=== PATIENT | female | born 1950 | race Caucasian/White ===

== ENCOUNTER 2016-10-24 00:58 | Inpatient (IN) | payer MEDICARE, BC ==
--- NOTE | 2016-10-24 01:51 | XR ---
EXAM: XR Chest, 1 View CLINICAL HISTORY: Reason: Pain TECHNIQUE: Frontal view of the chest. COMPARISON: No relevant prior studies available. FINDINGS: Lungs: Suspect mild subsegmental atelectasis in the right midlung. No consolidation. Pleural space: Unremarkable. No pneumothorax. Heart: Borderline cardiomegaly. Bones/joints: Bilateral shoulder degeneration. IMPRESSION: No clear evidence of acute pulmonary disease
--- NOTE | 2016-10-24 02:12 | XR ---
EXAM: XR Pelvis, 1 or 2 Views CLINICAL HISTORY: Reason: Pain TECHNIQUE: Frontal view of the pelvis. COMPARISON: No relevant prior studies available. FINDINGS: Bones/joints: There is a subtrochanteric/intertrochanteric fracture of the right femur. Femoral shaft is laterally displaced by approximately 1. 5 cm and overriding by approximately 4 cm. Minimal varus angulation. Soft tissues: Unremarkable. IMPRESSION: Subtrochanteric/intertrochanteric right femur fracture
--- NOTE | 2016-10-24 02:21 | XR ---
EXAM: XR Right Femur, 2 Views CLINICAL HISTORY: Reason: Pain TECHNIQUE: Frontal and lateral views of the right femur. COMPARISON: No relevant prior studies available. FINDINGS: There is a subtrochanteric/intertrochanteric fracture of the right femur. Femoral shaft is laterally displaced by approximately 1.5 cm and overriding by approximately 4 cm. Minimal varus angulation. Marked degeneration of the right knee, most pronounced to the medial compartment. Osteopenia. IMPRESSION: Subtrochanteric/intertrochanteric right femur fracture
[2016-10-24] MEDS ORDERED: ADENOSINE 3 MG/ML 2 ML VIAL IVP STA (02:24)
[2016-10-24] MEDS ORDERED: SODIUM CHLORIDE 0.9% 1,000 ML IV STA (02:28)
[2016-10-24] MEDS ORDERED: HYDROmorphone 1 MG/ML 1 ML SYRINGE IM STA (02:37)
--- NOTE | 2016-10-24 02:43 | XR ---
EXAM: XR Right Hand Complete, 3 or More Views CLINICAL HISTORY: Reason: pain, fall TECHNIQUE: Frontal, lateral and oblique views of the right hand. COMPARISON: No relevant prior studies available. FINDINGS: Bones/joints: No fracture. No dislocation. Degenerative changes of the triscaphe and first carpometacarpal joints. Distal interphalangeal osteoarthrosis, most pronounced to the index finger. Soft tissues: Dorsal soft tissue swelling. No radiopaque foreign body. IMPRESSION: No fracture or dislocation.
[2016-10-24] MEDS ORDERED: PROPRANOLOL 1 MG/ML 1 ML VIAL IV STA (02:46)
--- NOTE | 2016-10-24 02:55 | ED ---
Fall HPI - General Chief Complaint: Fall Stated Complaint: Fall, Leg injury Time Seen by Provider: 10/24/16 01:00 Source: patient, EMS, RN notes reviewed Mode of arrival: EMS - History of Present Illness Initial Comments: This is a 66-year-old female who slipped and fell 1 hour prior to calling EMS. She was able scooter so forth were performed. She complains some pain to her rate hip area no head neck pain she does complain some mid back pain but not from a fall just lying on the floor. She denies any other extremity injuries. Complains right dorsal hand pain. No fevers chills sweats no other symptoms no loss of consciousness. She was brought in by paramedics. Reportedly she was medially rotated and shortened with her right lower extremity. MD Complaint: fall - Related Data Home Medications Medication Instructions Recorded Confirmed Lisinopril 5 mg PO DAILY 02/27/15 03/20/16 Aspirin 325 mg PO DAILY 02/23/16 03/20/16 Fluticasone Nasal [place] [Flonase 1 spray EA NOSTRIL BID PRN 02/23/16 03/20/16 Nasal [place]] Furosemide [Lasix] 20 mg PO DAILY 03/20/16 03/20/16 Previous Rx's Medication Instructions Recorded Nitroglycerin Sl Tabs [Nitrostat] 0.4 mg SUBLINGUAL Q5M PRN #0 tab 01/04/16 Potassium Chloride ER [K-Dur 20] 20 meq PO DAILY #60 tab 03/20/16 Potassium Chloride Oral Liquid 20 meq PO DAILY 30 Days 03/20/16 Allergies Allergy/AdvReac Type Severity Reaction Status Date / Time No Known Allergies Allergy Verified 03/20/16 20:06 Review of Systems ROS Statement: Those systems with pertinent positive or pertinent negative responses have been documented in the HPI. ROS Other: All systems not noted in ROS Statement are negative. Past Medical History Past Medical History: GERD/Reflux, Hyperlipidemia, Hypertension, Osteoarthritis (OA) History of Any Multi-Drug Resistant Organisms: None Reported Past Surgical History: Adenoidectomy, Joint Replacement, Tonsillectomy Additional Past Surgical History / Comment(s): LT TKA. COLONOSCOPY Past Anesthesia/Blood Transfusion Reactions: Motion Sickness Past Psychological History: No Psychological Hx Reported Smoking Status: Current every day smoker Past Alcohol Use History: None Reported Past Drug Use History: None Reported - Past Family History Father Family Medical History: Myocardial Infarction ([place]) (Father at the age of 66 from [place].) Brother(s) Family Medical History: No Reported History (patient has one brother no major medical problems.) Mother Family Medical History: Coronary Artery Disease (CAD) (Mother at the age of 83 from CAD.) General Exam - General Exam Comments Initial Comments: This is a well-developed well-nourished awake alert oriented 3 female she does demonstrate a [place] Coma Scale of 15 Limitations: no limitations General appearance: alert, anxious Head exam: Present: atraumatic, normocephalic, normal inspection Eye exam: Present: normal appearance, PERRL, EOMI. Absent: scleral icterus, conjunctival injection, periorbital swelling ENT exam: Present: normal exam, mucous membranes moist Neck exam: Present: normal inspection. Absent: tenderness, meningismus, lymphadenopathy Respiratory exam: Present: normal lung sounds bilaterally. Absent: respiratory distress, wheezes, rales, rhonchi, stridor Cardiovascular Exam: Present: normal rhythm, tachycardia, normal heart sounds. Absent: systolic murmur, diastolic murmur, rubs, gallop, clicks GI/Abdominal exam: Present: soft, normal bowel sounds. Absent: distended, tenderness, guarding, rebound, rigid Extremities exam: Present: tenderness, normal capillary refill, other ( Shortening and medial rotation of her lower extremity with tenderness palpation of the region of the greater trochanter. No pain to palpation distal to this area. Additionally there is some edema over the right dorsal hand. Or crepitation ). Absent: normal inspection, full ROM, pedal edema, joint swelling, calf tenderness Back exam: Present: normal inspection, tenderness (Mild tenderness to the paraspinous muscles of the lower thoracic spine). Absent: CVA tenderness (R), CVA tenderness (L), vertebral tenderness Neurological exam: Present: alert, oriented X3, CN II-XII intact Psychiatric exam: Present: normal affect, normal mood Skin exam: Present: warm, dry, intact, normal color. Absent: rash Course Vital Signs 10/24/16 10/24/16 10/24/16 01:06 02:07 02:26 Temperature 98.3 F Pulse Rate 111 H 158 H 102 H Respiratory 20 18 Rate Blood Pressure 174/74 131/61 O2 Sat by Pulse 96 95 Oximetry 10/24/16 03:20 Temperature Pulse Rate 92 Respiratory 16 Rate Blood Pressure 111/62 O2 Sat by Pulse 98 Oximetry - Reevaluation(s) Reevaluation #1: 10/24/16 02:56 The patient was noted to be an SVT heart rate was 153 EKG showed a QRS of 84 daily since QTC of 320/510 nonspecific inferior changes artifact was present. Patient to response to 6 mg with occurred. Reevaluation #2: 10/24/16 03:03 Patient's R-rated go back up to the 150s due to her suspected thyroid disease propanolol will be given an additional fluid challenge. Reevaluation #3: 10/24/16 03:39 The patient did convert to a normal sinus rhythm after 1 mg of her propranolol Medical Decision Making - Medical Decision Making I did discuss case with Dr. Juárez was senior quality control inspector for orthopedic surgery facial be admitted nothing by mouth he will consult medical clearance - Lab Data Result diagrams: 10/24/16 02:57 Lab Results 10/24/16 10/24/16 10/24/16 Range/Units 02:57 02:57 03:00 PT 11.6 (9.0-12.0) sec INR 1.2 (<1.1) APTT 25.4 (22.0-30.0) sec Sodium 141 (137-145) mmol/L Potassium 3.9 (3.5-5.1) mmol/L Chloride 110 H (98-107) mmol/L Carbon Dioxide 24 (22-30) mmol/L Anion Gap 7 mmol/L BUN 13 (7-17) mg/dL Creatinine 0.50 L (0.52-1.04) mg/dL Est GFR (MDRD) Af Amer >60 (>60 ml/min/1.73 sqM) Est GFR (MDRD) Non-Af >60 (>60 ml/min/1.73 sqM) Glucose 100 H (74-99) mg/dL Calcium 9.1 (8.4-10.2) mg/dL Magnesium 1.6 (1.6-2.3) mg/dL Total Bilirubin 0.4 (0.2-1.3) mg/dL AST 25 (14-36) U/L ALT 33 (9-52) U/L Alkaline Phosphatase 109 (38-126) U/L Total Protein 5.6 L (6.3-8.2) g/dL Albumin 2.9 L (3.5-5.0) g/dL Urine Color Light Yellow Urine Appearance Clear (Clear) Urine pH 5.0 (5.0-8.0) Ur Specific [place] 1.004 (1.001-1.035) Urine Protein Negative (Negative) Urine Glucose (UA) Negative (Negative) Urine Ketones Negative (Negative) Urine Blood Moderate H (Negative) Urine Nitrite Negative (Negative) Urine Bilirubin Negative (Negative) Urine Urobilinogen <2.0 (<2.0) mg/dL Ur Leukocyte Esterase Negative (Negative) Urine RBC 3 (0-5) /hpf - EKG Data -: EKG Interpreted by Me EKG shows normal: sinus rhythm Rate: tachycardia (Tachycardia of 106 FL interval 1:30 QRS 88 QT since QTC some PACs are noted.) - Radiology Data Radiology results: report reviewed (I did review all the imaging and reports are is a some anterior and intertrochanteric fracture of the right femur.), image reviewed Critical Care Time Critical Care Time: Yes Critical Care Time: 33 minutes of critical care time which includes initial monitoring of the EMS run and discussed with paramedics history physical labs x-rays of the patient reevaluation the patient's response to therapy and several occasions discussion with the family and patient status with physician and admission orders documentation of the above Disposition Clinical Impression: Fall, Closed intertrochanteric fracture of right hip, SVT (supraventricular tachycardia) Disposition: ADMITTED IP TO THIS [facility] Condition: Stable Referrals: None,Stated [Primary Care Provider] - 1-2 days Decision Time: 02:00
[2016-10-24 03:14] LABS: ALT 33 U/L (9-52); AST 25 U/L (14-36); Alkaline Phosphatase 109 U/L (38-126); Anion Gap 7 mmol/L; Blood Urea Nitrogen 13 mg/dL (7-17); Calcium 9.1 mg/dL (8.4-10.2); Carbon Dioxide 24 mmol/L (22-30); Chloride 110 mmol/L (98-107); Glucose 100 mg/dL (74-99); Magnesium 1.6 mg/dL (1.6-2.3); Non-African American GFR(MDRD) >60 (>60 ml/min/1.73 sqM); Potassium 3.9 mmol/L (3.5-5.1); Sodium 141 mmol/L (137-145); Total Bilirubin 0.4 mg/dL (0.2-1.3); Total Protein 5.6 g/dL (6.3-8.2)
[2016-10-24 03:15] LABS: Appearance,Urine Clear (Clear); Bilirubin,Urine Negative (Negative); Glucose,Urine (UA) Negative (Negative); Ketones,Urine Negative (Negative); Leukocyte Esterase,Urine Negative (Negative); Nitrite,Urine Negative (Negative); Particle Count 4349; Protein,Urine Negative (Negative); RBC,Urine 3 /hpf (0-5); Specific Gravity,Urine 1.004 (1.001-1.035); UA Billing (MACRO vs. MICRO) MICRO; Urobilinogen,Urine <2.0 mg/dL (<2.0)
[2016-10-24 03:19] LABS: INR 1.2 (<1.1); Partial Thromboplastin Time 25.4 sec (22.0-30.0); Prothrombin Time 11.6 sec (9.0-12.0)
[2016-10-24 03:22] LABS: Basophils % (A) 0 %; CH 30.4; CHCM 32.5; Eosinophils % (A) 0 %; HCT 34.4 % (34.0-46.0); HDW 2.19; HGB 11.1 gm/dL (11.4-16.0); Luc # (Auto) 0.11; Luc % (Auto) 1; Lymphocytes % (A) 7 %; MCH 30.4 pg (25.0-35.0); MCHC 32.4 g/dL (31.0-37.0); MCV 93.7 fL (80.0-100.0); Monocytes # (A) 0.8 k/uL (0-1.0); Monocytes % (A) 5 %; Neutrophils # (A) 14.1 k/uL (1.3-7.7); Neutrophils % (A) 88 %; RBC 3.67 m/uL (3.80-5.40); RDW 12.5 % (11.5-15.5); WBC (Perox) 17.58
[2016-10-24 03:31] LABS: Creatine Kinase MB 1.8 ng/mL (0.0-2.4)
[2016-10-24] MEDS ORDERED: ONDANSETRON 4 MG/2 ML VIAL IVP PRN (03:42)
[2016-10-24] MEDS ORDERED: NALOXONE 0.4 MG/ML 1 ML VIAL IV PRN (03:42)
[2016-10-24] MEDS: HYDROmorphone 1 MG/ML 1 ML SYRINGE IV PRN ×7 (05:18→22:14)
[2016-10-24 06:01] VITALS: BMI 31.9
[2016-10-24] MEDS: SODIUM CHLORIDE 0.9% 1,000 ML IV SCH ×3 (06:19→20:11)
[2016-10-24] MEDS: HEPARIN SODIUM,PORCINE 5,000 UNIT/ML 1 ML VIAL SQ SCH ×2 (08:11→17:10)
--- NOTE | 2016-10-24 10:14 | P.HPOR ---
History of Present Illness H&P Date: 10/24/16 Chief Complaint: Right hip fracture This is a 66-year-old female who is admitted to orthopedics for management of right hip fracture. Patient states she was walking to the bathroom last night and reached to grab something off the floor when she fell. Patient states after she fell she was unable to get up off of the floor. Patient has not been able to bear weight to the right lower extremity. Patient states that she was able to scoot across the floor to get her phone and call for help. Patient was evaluated in the EC and determined to have a fracture of the right hip. Patient also complains of some right hand pain. Patient states the hand pain is made worse when picking up objects. Patient states she noticed some swelling in the right hand yesterday but this has improved. Patient also complains of lower back pain that is worse with movement and better with rest. Patient denies any loss of sensation to the saddle area or any change in bowel or bladder function. Patient denies any loss of consciousness, head injury, neck pain or any numbness/weakness/tingling to the bilateral upper or lower extremities. Review of Systems See HPI. Past Medical History Past Medical History: Atrial Fibrillation, GERD/Reflux, Hyperlipidemia, Hypertension, Osteoarthritis (OA), Thyroid Disorder Additional Past Medical History / Comment(s): Radiation for thyroid History of Any Multi-Drug Resistant Organisms: None Reported Past Surgical History: Adenoidectomy, Joint Replacement, Tonsillectomy Additional Past Surgical History / Comment(s): LT TKA. COLONOSCOPY Past Anesthesia/Blood Transfusion Reactions: No Reported Reaction Past Psychological History: No Psychological Hx Reported Smoking Status: Current every day smoker Past Alcohol Use History: None Reported Past Drug Use History: None Reported - Past Family History Father Family Medical History: Myocardial Infarction ([place]) Brother(s) Family Medical History: No Reported History Mother Family Medical History: Coronary Artery Disease (CAD) Medications and Allergies Home Medications Medication Instructions Recorded Confirmed Type Apixaban [Eliquis] 5 mg PO BID 10/24/16 10/24/16 History Flecainide Acetate [Flecainide 50 mg PO BID 10/24/16 10/24/16 History Acetate] Methimazole [Tapazole] 5 mg PO DAILY 10/24/16 10/24/16 History Metoprolol Tartrate [Metoprolol 25 mg PO BID 10/24/16 10/24/16 History Tartrate] Omeprazole [Omeprazole] 20 mg PO DAILY 10/24/16 10/24/16 History Allergies Allergy/AdvReac Type Severity Reaction Status Date / Time No Known Allergies Allergy Verified 10/24/16 07:50 Physical Examination Patient is in no acute distress and is alert and oriented 3. On exam of the right lower extremity there is shortening and external rotation. There is tenderness over the proximal femur. Patient has full foot and ankle motion of the right lower extremity with sensation intact. Dorsalis pedis pulses are 2+ bilaterally. No tenderness of the left lower extremity and patient has full range of motion, strength and sensation of the left lower extremity. Calf soft and nontender bilaterally. Examination of the right hand reveals tenderness to the dorsal medial aspect of the right hand. No tenderness to palpation of the anatomical snuffbox. Patient has full range of motion of the right hand and wrist. Sensation and strength are intact. Radial pulses are 2+ bilaterally. There is no swelling, ecchymosis or erythema on examination of the right hand. There is no tenderness to palpation of the cervical midline, bilateral shoulders , upper arms, elbows or wrists. Patient has tenderness to palpation over the lumbar spine and lumbar paraspinal muscles. Results X-rays of the right hip and pelvis were reviewed showing displaced commintued subtrochanteric fracture. X-rays of the right hand were reviewed showing evidence for chronic arthritic changes, no definite acute fracture or dislocation. X-rays of the lumbar spine are pending. - Labs Labs: Abnormal Lab Results - Last 24 Hours (Table) 10/24/16 10/24/16 10/24/16 Range/Units 02:57 02:57 02:57 WBC 16.0 H (3.8-10.6) k/uL RBC 3.67 L (3.80-5.40) m/uL Hgb 11.1 L (11.4-16.0) gm/dL Neutrophils # 14.1 H (1.3-7.7) k/uL Chloride 110 H (98-107) mmol/L Creatinine 0.50 L (0.52-1.04) mg/dL Glucose 100 H (74-99) mg/dL Total Creatine Kinase 176 H (30-135) U/L Total Protein 5.6 L (6.3-8.2) g/dL Albumin 2.9 L (3.5-5.0) g/dL TSH (0.465-4.680) mIU/L Free T4 (0.78-2.19) ng/dL Urine Blood (Negative) 10/24/16 10/24/16 Range/Units 02:57 03:00 WBC (3.8-10.6) k/uL RBC (3.80-5.40) m/uL Hgb (11.4-16.0) gm/dL Neutrophils # (1.3-7.7) k/uL Chloride (98-107) mmol/L Creatinine (0.52-1.04) mg/dL Glucose (74-99) mg/dL Total Creatine Kinase (30-135) U/L Total Protein (6.3-8.2) g/dL Albumin (3.5-5.0) g/dL TSH <0.015 L (0.465-4.680) mIU/L Free T4 4.35 H (0.78-2.19) ng/dL Urine Blood Moderate H (Negative) H & H 10/24/16 Range/Units 02:57 Hgb 11.1 L (11.4-16.0) gm/dL Hct 34.4 (34.0-46.0) % Coagulation 10/24/16 Range/Units 02:57 INR 1.2 (<1.1) Result Diagrams: 10/24/16 02:57 10/24/16 02:57 Assessment and Plan (1) Closed fracture of right hip Status: Acute Plan: #1. Cotaes's traction ordered. #2. Xrays of lumbar spine pending #3. Continue pain control #4. Patient is to be nothing by mouth after midnight. #5. Appreciate input from medicine #6. Anticipate ORIF of right hip tomorrow.
--- NOTE | 2016-10-24 10:45 | XR ---
EXAM TYPE: LUMBAR SPINE X RAY SERIES COMPARISON: NONE HISTORY: Low back pain TECHNIQUE: 4 views are submitted. FINDINGS: Alignment is anatomic. The pedicles are intact. The transverse processes are intact. There is diff use osteopenia with hypertrophic and degenerative change at all levels. Endplate compression deformit ies of L4 and L3 are noted. Deformity of L3 appears new from a CT scan of 01/02/2016. IMPRESSION: 1. Multilevel moderate to severe degenerative disc disease with hypertrophic changes. 2. There are compression deformities of the superior endplate of L3 and L4. Deformity of L3 appears n ew from a previous CT scan of 01/02/2016. Correlate clinically.
[2016-10-24] MEDS ORDERED: POLYETHYLENE GLYCOL 3350 17 GM POWD.PACK PO PRN (12:49)
[2016-10-24] MEDS: MAGNESIUM SULFATE-D5W PMX 1 GM in DEXTROSE/WATER 1 100ML.BAG IVPB SCH ×2 (13:36→14:47)
--- NOTE | 2016-10-24 16:04 | P.PN ---
Progress Note - Text X-rays of the lumbar spine were done and reviewed showing: #1. Severe degenerative disc disease and hypertrophic changes. #2 There are compression deformities of the superior endplate of L3 and L4. Deformity of L3 appears new from a previous CT scan of 01/02/2016. Correlate clinically. Report by Dr. hC. Due to evidence for new L3 compression fracture a DESIR 2 brace is ordered for patient to be worn at all times unless patient is in bed with head of bed at less than 45.
--- NOTE | 2016-10-24 16:34 | CONS ---
DATE OF CONSULTATION: 10/24/2016 This patient is a 66-year-old female who presented to the emergency room at [facility] in regards to an injury to her right hip. She tripped, falling on the hip, sustaining a displaced intertrochanteric/subtrochanteric fracture, right hip. She is admitted, stabilized. She had cardiac ( ) at the time of admission which was stabilized. She was placed on ( ). I ( ) fracture and scheduled for fixation. ( ) Department of Medicine with Department of Radiology in regards to her care and will schedule her tentatively for tomorrow on 10/25/2016 for open reduction internal fixation. I discussed the procedure with her, including complications ( ) and will proceed ( ).
[2016-10-24] MEDS ORDERED: LIDOCAINE 1% 20 ML VIAL (10MG/ML) FOR IV START INTRADERMA PRN (19:52)
[2016-10-24] MEDS ORDERED: ONDANSETRON 4 MG/2 ML VIAL IVP ONE (19:52)
[2016-10-24] MEDS ORDERED: SCOPOLAMINE 1.5MG/72HR PATCH TRANSDERM ONE (19:52)
[2016-10-24] MEDS ORDERED: DEXAMETHASONE SOD PHOSPHATE 10 MG/ML 1 ML VIAL IV ONE (19:52)
[2016-10-24] MEDS: METHIMAZOLE 5 MG TAB PO SCH (20:12)
[2016-10-24] MEDS: METOPROLOL TARTRATE 25 MG TAB PO SCH (20:12)
[2016-10-24] MEDS: FLECAINIDE 50 MG TAB PO SCH (20:12)
--- NOTE | 2016-10-24 20:31 | CONS ---
DATE OF CONSULTATION: 10/24/2016 REASON FOR CONSULTATION: SVT and ( ) clearance. Patient is a 66-year-old female who came in after a mechanical fall. Patient denied any palpitations or chest pain at that time. Patient does have a history of atrial fibrillation. Patient was found to have sinus tachycardia followed by SVT, which has completely resolved at this point in time. Patient is on beta frances ( ) which is being resumed. Patient is on Eliquis as an anticoagulation ( ) atrial fibrillation. Patient's functional status is greater than 4 METS. Denied any coronary artery disease. EKG showed sinus tachycardia without any acute ST-T wave changes. Patient denied any history of congestive heart failure. Patient's Eliquis is being held for surgery. I do not believe patient ( ) at this point of time and patient will be resumed on her beta frances and also flecainide. Patient is definitely high risk for episodes of atrial fibrillation post surgery, which needs to be more closely monitored. Otherwise, patient is low to intermediate risk for surgery. Patient had a right hip intertrochanteric fracture. Patient is scheduled for surgery tomorrow. Patient denied any fever or chills. Patient denied any dysuria, nausea, vomiting. REVIEW OF SYSTEMS: CONSTITUTIONAL: No fever, no malaise, no fatigue. HEENT: No recent visual problems or hearing problems. Denied any sore throat. CARDIOVASCULAR: No chest pain, orthopnea, PND, no palpitations, no syncope. PULMONARY: No shortness of breath, no cough, no hemoptysis. GASTROINTESTINAL: No diarrhea, no nausea, no vomiting, no abdominal pain. Normoactive bowel sounds. NEUROLOGICAL: No headaches, no weakness, no numbness. HEMATOLOGICAL: Denies any bleeding or petechiae. GENITOURINARY: Denies any burning micturition, frequency, or urgency. MUSCULOSKELETAL/RHEUMATOLOGICAL: Pain in the right hip area secondary to fracture. ENDOCRINE: Denies any polyuria or polydipsia. The rest of the 14 point review of systems is negative. PAST MEDICAL HISTORY: 1. Atrial fibrillation. 2. Gastroesophageal reflux disease. 3. Hyperlipidemia. 4. Hypertension. 5. Osteoarthritis. 6. Hyperthyroidism. 7. Chronic low back pain. 8. Chronic lumbar degenerative disc disease. 9. Patient had radiation of thyroid in the past. 10. Adenoidectomy. 11. Joint replacement surgery. 12. Tonsillectomy. Patient does smoke. Denied any alcohol abuse or any drug abuse. FAMILY HISTORY: Father had myocardial infarction. Mother had coronary artery disease. HOME MEDICATIONS: 1. ( ) 2. Flecainide. 3. Methimazole. I am obtaining TSH as well. 4. Metoprolol. 5. Omeprazole. 6. Eliquis. ( ) PHYSICAL EXAMINATION: VITAL SIGNS: Temperature 97.5, pulse of 85, respiratory rate of 18. Blood pressure is 122/57. Saturating at 96% on room air. GENERAL: The patient is alert and oriented x3, not in any acute distress. Well developed, well nourished. HEENT: Pupils are round and equally reacting to light. EOMI. No scleral icterus. No conjunctival pallor. Normocephalic, atraumatic. No pharyngeal erythema. No thyromegaly. CARDIOVASCULAR: S1 and S2 present. No murmurs, rubs, or gallops. PULMONARY: Chest is clear to auscultation, no wheezing or crackles. ABDOMEN: Soft, nontender, nondistended, normoactive bowel sounds. No palpable organomegaly. MUSCULOSKELETAL: Defer to Orthopedic Surgery. EXTREMITIES: No cyanosis, clubbing, or pedal edema. NEUROLOGICAL: Gross neurological examination did not reveal any focal deficits. SKIN: No rashes. LABORATORY DATA: CBC and CMP are abnormal for increased WBC count of 16,000. Patient's free T4 is 4.35. TSH is extremely low secondary to hyperthyroidism. Methimazole dose may need to be increased. ASSESSMENT AND PLAN: 1. Preoperative clearance as mentioned above. Patient is low to intermediate risk for surgery. 2. Atrial fibrillation with episodes of supraventricular tachycardia during this hospitalization. Patient in sinus rhythm at this point of time. Continue with beta frances and also flecainide. 3. Right hip fracture. Further management as per primary service. Pain management as per primary service. Patient will need to be resumed on 5 mg twice a day of Eliquis once she is done with the surgery. 4. Hyperthyroidism. Patient's T4 is elevated. TSH is low. I will show an increase the dose of methimazole to 5 mg p.o. b.i.d. 5. Leukocytosis without any signs or symptoms of infection; reactive in nature, secondary to fracture. 6. Gastroesophageal reflux disease. Continue with Prilosec. Will continue to follow the patient. 7. Patient has lumbar degenerative disc disease.
[2016-10-25] MEDS: HEPARIN SODIUM,PORCINE 5,000 UNIT/ML 1 ML VIAL SQ SCH ×3 (00:27→17:38)
[2016-10-25] MEDS: HYDROmorphone 1 MG/ML 1 ML SYRINGE IV PRN ×3 (01:30→07:40)
[2016-10-25] MEDS: SODIUM CHLORIDE 0.9% 1,000 ML IV SCH ×2 (06:45→21:10)
[2016-10-25] MEDS: PANTOPRAZOLE 40 MG TABLET PO SCH (06:45)
[2016-10-25 07:06] LABS: Anion Gap 8 mmol/L; Blood Urea Nitrogen 13 mg/dL (7-17); Calcium 8.9 mg/dL (8.4-10.2); Carbon Dioxide 22 mmol/L (22-30); Chloride 109 mmol/L (98-107); Glucose 89 mg/dL (74-99); Non-African American GFR(MDRD) >60 (>60 ml/min/1.73 sqM); Potassium 3.8 mmol/L (3.5-5.1); Sodium 139 mmol/L (137-145)
[2016-10-25] MEDS: METHIMAZOLE 5 MG TAB PO SCH ×2 (08:13→21:14)
[2016-10-25] MEDS: METOPROLOL TARTRATE 25 MG TAB PO SCH ×2 (08:13→21:16)
[2016-10-25] MEDS: FLECAINIDE 50 MG TAB PO SCH ×2 (08:13→21:16)
[2016-10-25] MEDS ORDERED: METHIMAZOLE 5 MG TAB PO SCH (09:00)
--- NOTE | 2016-10-25 09:01 | P.CRDCN ---
History of Present Illness Consult date: 10/25/16 Requesting physician: Seth Wilkins Consult reason: atrial flutter Chief complaint: Fall History of present illness: This is a pleasant 66-year-old female with history of hypertension, hyperlipidemia, hyperthyroidism currently receiving radioactive iodine, typical atrial flutter, she sees Dr. Rowan in the office. Patient has been on second night 50 mg twice a day along with metoprolol tartrate 25 mg twice a day and Eliquis for anticoagulation. She presented to the hospital after experiencing a fall at home. She denies any syncope. She states that she was reaching down to pick something up and became unsteady and fell. Patient did sustain a displaced intertrochanteric/supple trochanteric fracture to the right hip. She was seen by orthopedics and is scheduled to undergo surgery today. It was on the fifth floor, went into a rapid rhythm which appears to be a supraventricular tachycardia however could be her typical atrial flutter with rapid ventricular response, she subsequently converted to normal sinus rhythm and remains in normal sinus rhythm this morning. Her Eliquis has been placed on hold she is currently on subcu heparin. Blood pressure 108/60 with a heart rate in the 90s. Temperature 99.1. White blood cell count 16, hemoglobin 11.1 , potassium 3.8, creatinine 0.4, BUN 13, TSH 0.015, free T4 4.3. Chest x-ray did not reveal any evidence of acute pulmonary disease. At the time of my examination this morning, patient denies any chest pain at present or any recent chest pain, breathing has been overall stable. She states she did feel some rapid heartbeat briefly yesterday. Overall her main complaint is discomfort in the right hip area this morning. Past Medical History Past Medical History: Atrial Fibrillation, GERD/Reflux, Hyperlipidemia, Hypertension, Osteoarthritis (OA), Thyroid Disorder Additional Past Medical History / Comment(s): Radiation for thyroid History of Any Multi-Drug Resistant Organisms: None Reported Past Surgical History: Adenoidectomy, Joint Replacement, Tonsillectomy Additional Past Surgical History / Comment(s): LT TKA. COLONOSCOPY Past Anesthesia/Blood Transfusion Reactions: No Reported Reaction Past Psychological History: No Psychological Hx Reported Smoking Status: Current every day smoker Past Alcohol Use History: None Reported Past Drug Use History: None Reported - Past Family History Father Family Medical History: Myocardial Infarction (MT) Brother(s) Family Medical History: No Reported History Mother Family Medical History: Coronary Artery Disease (CAD) Medications and Allergies Home Medications Medication Instructions Recorded Confirmed Type Apixaban [Eliquis] 5 mg PO BID 10/24/16 10/24/16 History Flecainide Acetate [Flecainide 50 mg PO BID 10/24/16 10/24/16 History Acetate] Methimazole [Tapazole] 5 mg PO DAILY 10/24/16 10/24/16 History Metoprolol Tartrate [Metoprolol 25 mg PO BID 10/24/16 10/24/16 History Tartrate] Omeprazole [Omeprazole] 20 mg PO DAILY 10/24/16 10/24/16 History Allergies Allergy/AdvReac Type Severity Reaction Status Date / Time No Known Allergies Allergy Verified 10/24/16 07:50 Physical Exam Vitals: Vital Signs Temp Pulse Resp BP BP Pulse Ox 10/25/16 03:50 91 16 10/25/16 03:49 99.1 F 91 16 108/63 91 L 10/25/16 00:00 98 F 97 18 119/56 94 L 10/24/16 20:00 98.9 F 106 H 18 134/66 93 L 10/24/16 14:58 98.3 F 90 18 122/59 96 10/24/16 11:41 96 18 10/24/16 11:40 97.3 F L 85 18 122/57 98 Intake and Output 10/24/16 10/25/16 10/25/16 22:59 06:59 14:59 Intake Total 825 Output Total 620 Balance 205 Intake: IV 825 Sodium Chloride 0.9% 1, 825 000 ml @ 75 mls/hr IV . [id number] [facility] Rx#:[id number] Output: Urine 620 Other: Voiding Method Indwelling Catheter Indwelling Catheter Weight 84.5 kg PHYSICAL EXAMINATION: HEENT: Head is atraumatic, normocephalic. Pupils equal, round. Neck is supple. There is no elevated jugular venous pressure. HEART EXAMINATION: Heart S1, S2 normal. No murmur or gallop heard. CHEST EXAMINATION: Lungs are clear to auscultation and precussion. No chest wall tenderness is noted on palpation or with deep breathing. ABDOMEN: Soft, nontender. Bowel sounds are heard. No organomegaly noted. EXTREMITIES: 2+ peripheral pulses with trace evidence of peripheral edema and no calf tenderness noted. Positive discomfort in the right hip and buttocks area NEUROLOGIC patient is awake, alert and oriented -3. . Results 10/24/16 02:57 10/25/16 06:20 Comprehensive Metabolic Panel 10/25/16 Range/Units 06:20 Sodium 139 (137-145) mmol/L Potassium 3.8 (3.5-5.1) mmol/L Chloride 109 H (98-107) mmol/L Carbon Dioxide 22 (22-30) mmol/L BUN 13 (7-17) mg/dL Creatinine 0.42 L (0.52-1.04) mg/dL Glucose 89 (74-99) mg/dL Calcium 8.9 (8.4-10.2) mg/dL Current Medications Generic Name Dose Route Start Last Admin Trade Name Freq PRN Reason Stop Dose Admin Flecainide Acetate 50 mg 10/24/16 21:00 10/25/16 08:13 Tambocor PO 50 mg BID NIKKI Administration Heparin Sodium (Porcine) 5,000 unit 10/24/16 08:00 10/25/16 08:10 Heparin SQ Not Given Q8HR [facility] Hydromorphone HCl 1 mg 10/24/16 03:42 10/25/16 07:40 Dilaudid IV 1 mg Q3HR PRN Administration Severe Pain Hydromorphone HCl 0.5 mg 10/24/16 19:52 Dilaudid IVP 10/25/16 19:53 Q5M PRN Pain Control Sodium Chloride 1,000 mls @ 75 mls/hr 10/24/16 03:45 10/25/16 06:45 Saline 0.9% IV 75 mls/hr .[id number] NI[facility] Administration Lactated Ringer's 1,000 mls @ 20 mls/hr 10/24/16 19:52 Lactated Ringers IV .Q24H [facility] Lidocaine HCl 0.1 ml 10/24/16 19:52 .Xylocaine 1% Inj (10mg/Ml) For Iv Start INTRADERMA PER PROTOCOL PRN IV Start Methimazole 5 mg 10/24/16 21:00 10/25/16 08:13 Tapazole PO 5 mg BID NIKKI Administration Metoprolol Tartrate 25 mg 10/24/16 21:00 10/25/16 08:13 Lopressor PO 25 mg BID NIKKI Administration Naloxone HCl 0.2 mg 10/24/16 03:42 Narcan IV Q2M PRN Opioid Reversal Ondansetron HCl 4 mg 10/24/16 03:42 10/24/16 11:36 Zofran IVP 4 mg Q8HR PRN Administration Nausea And Vomiting Pantoprazole Sodium 20 mg 10/25/16 07:30 10/25/16 06:45 Protonix PO 20 mg [id number] NIKKI Administration Polyethylene Glycol 17 gm 10/24/16 12:49 Miralax PO DAILY PRN Constipation Intake and Output 10/24/16 10/25/16 10/25/16 22:59 06:59 14:59 Intake Total 825 Output Total 620 Balance 205 Intake: IV 825 Sodium Chloride 0.9% 1, 825 000 ml @ 75 mls/hr IV . [id number] [facility] Rx#:[id number] Output: Urine 620 Other: Voiding Method Indwelling Catheter Indwelling Catheter Weight 84.5 kg 10/24/16 02:57 10/25/16 06:20 EKG Interpretations (text) Initial EKG shows a sinus tachycardia with PACs. Subsequent EKG shows atrial flutter with rapid ventricular response. EKG this morning normal sinus rhythm. Assessment and Plan Plan: Assessment and plan #1 fall, with evidence of a displaced intertrochanteric fracture of the right hip. Patient scheduled for surgery today. #2 hypertension #3 hyperlipidemia #4 atrial flutter with rapid ventricular response, paroxysmal. Currently in normal sinus rhythm #5 history of typical atrial flutter #6 hypothyroidism, currently receiving radioactive iodine treatment Plan We will obtain an echocardiogram with Doppler study. This is currently on hold , patient is on heparin 5000 units subcu every 8 hourly. Continue flecainide and beta frances. Further recommendations to follow. DNP note has been reviewed, I agree with a documented findings and plan of care. Patient was seen and examined.
--- NOTE | 2016-10-25 09:01 | P.PN ---
Subjective Principal diagnosis: Right hip fracture, This is a well-appearing 66-year-old female who was admitted for right hip fracture on 10/24/2016. Patient states the traction has helped somewhat with her pain control but she is still sore with certain movements. Patient states her right wrist is still painful and swollen. Patient states she has tried to keep it elevated. Patient also states her back continues to hurt with certain movements, but if she is laying still it does not hurt. Patient denies any numbness, tingling, weakness, change in bowel or bladder function or loss of sensation to the saddle area. Patient has no new complaints today. Objective - Vital Signs Vital signs: Vital Signs Temp 99.1 F 10/25/16 03:49 Pulse 91 10/25/16 03:50 Resp 16 10/25/16 03:50 BP 108/63 10/25/16 03:49 Pulse Ox 91 L 10/25/16 03:49 Intake & Output 10/24/16 10/25/16 10/25/16 18:59 06:59 18:59 Intake Total 1080 825 Output Total 550 620 Balance 530 205 Weight 84.5 kg Intake: IV 900 825 Sodium Chloride 0.9% 1, 900 825 000 ml @ 75 mls/hr IV . [id number] [facility] Rx#:[id number] Oral 180 Output: Urine 550 620 Uretheral (Beyer) 550 Other: Voiding Method Indwelling Catheter Indwelling Catheter - Exam On exam patient's right lower extremity is held in traction. Calf is soft and nontender. The area around the right hip fracture site is batch or continuous still operator but skin is soft. No ecchymosis or erythema. Sensation intact to the right lower extremity. Circulatory status intact to the right lower extremity with posterior tibial pulses 2+. On exam of right wrist and right hand patient has swelling to the dorsal aspect of the right hand with faint ecchymosis present to the radial aspect of the right wrist. There is generalized tenderness of the right hand. Right wrist is most tender over the radial aspect of the right wrist. Right wrist with full range of motion. Sensation and circulatory status are intact with radial pulses 2+. - Labs CBC & Chem 7: 10/24/16 02:57 10/25/16 06:20 Labs: Abnormal Lab Results - Last 24 Hours (Table) 10/25/16 Range/Units 06:20 Chloride 109 H (98-107) mmol/L Creatinine 0.42 L (0.52-1.04) mg/dL TSH <0.015 L (0.465-4.680) mIU/L Assessment and Plan (1) Closed fracture of right hip Status: Acute (2) Closed compression fracture of L3 lumbar vertebra Status: Acute Plan: #1. Continue traction and pain control #2. Xrays of lumbar spine show compression fracture of L3, DESIR 2 brace ordered and to be worn at all times unless patient is in bed with head of bed less than 45. #3. Continue NPO #4. Appreciate input from medicine. #5. ORIF of right hip scheduled for today.
--- NOTE | 2016-10-25 09:59 | P.PN ---
Progress Note - Text this is an addendum to the dictated cardiology consultation. The patient has a history of atrial flutter, anticoagulated and maintained on antiarrhythmic who presented after a fall and a fractured right hip. She had an episode of supra ventricle arrhythmia that could to present atrial flutter with 2 to one conduction although the possibility of AVNRT cannot be totally excluded. She is back in sinus mechanism at this time. She is continuing to be on her beta frances and her antiarrhythmic. Her stress test in May of this year showed no evidence of inducible ischemia and her left ventricle systolic function is normal. She stable from the cardiac standpoint to proceed with her surgical intervention , I would recommend to initiate anticoagulation as soon as possible. Thank you for this consult we will follow with you.
--- NOTE | 2016-10-25 10:51 | ECHOF ---
Referral Reason:aflutter MEASUREMENTS -------- HEIGHT: 162.6 cm WEIGHT: 84.4 kg BP: 108/63 RVIDd: 3.3 cm (< 3.3) IVSd: 1.4 cm (0.6 - 1.1) LVIDd: 4.1 cm (3.9 - 5.3) LVPWd: 1.2 cm (0.6 - 1.1) IVSs: 1.7 cm LVIDs: 2.6 cm LVPWs: 1.7 cm LA Diam: 4.1 cm (2.7 - 3.8) LAESV Index (A-L): 42.95 ml/m Ao Diam: 3.1 cm (2.0 - 3.7) AV Cusp: 1.9 cm (1.5 - 2.6) MV EXCURSION: 17.896 mm (> 18.000) MV EF SLOPE: 100 mm/s (70 - 150) EPSS: 0.3 cm MV E Mike: 1.14 m/s MV DecT: 215 ms MV A Mike: 1.12 m/s MV E/A Ratio: 1.01 AV maxP.57 mmHg AV meanP.30 mmHg RAP: 5.00 mmHg RVSP: 51.55 mmHg FINDINGS -------- Sinus rhythm. This was a technically adequate study. The left ventricular size is normal. There is moderate concentric left ventricular hypertrophy. Overall left ventricular systolic function is normal with, an EF between 60 - 65 %. Mitral Doppler inflow pattern suggests diastolic filling abnormality 9.33. The right ventricle is mildly enlarged. LA is moderately dilated 34-39 ml/m2 The right atrium is normal in size. There is mild to moderate aortic valve sclerosis. There is mild aortic stenosis present. Peak/mean gradient across the Aortic Valve is 25.57mmHg / 11.30mmHg. There is trace to mild mitral regurgitation. Mild tricuspid regurgitation present. There is moderate pulmonary hypertension. The right ventricular systolic pressure, as measured by Doppler, is 51.55mmHg. Trace/mild (physiologic) pulmonic regurgitation. The aortic root size is normal. The inferior vena cava is mildly dilated. There is no pericardial effusion. CONCLUSIONS -------- 1. Sinus rhythm. 2. There is mild aortic stenosis present. 3. Peak/mean gradient across the Aortic Valve is 25.57mmHg / 11.30mmHg. 4. There is trace to mild mitral regurgitation. 5. Mild tricuspid regurgitation present. 6. There is moderate pulmonary hypertension. 7. The right ventricular systolic pressure, as measured by Doppler, is 51.55mmHg. 8. Trace/mild (physiologic) pulmonic regurgitation. 9. The aortic root size is normal. 10. The inferior vena cava is mildly dilated. 11. There is no pericardial effusion. 12. This was a technically adequate study. 13. The left ventricular size is normal. 14. There is moderate concentric left ventricular hypertrophy. 15. Overall left ventricular systolic function is normal with, an EF between 60 - 65 %. 16. Mitral Doppler inflow pattern suggest diastolic filling abnormality 9.33. 17. The right ventricle is mildly enlarged. 18. LA is moderately dilated 34-39 ml/m2 19. There is mild to moderate aortic valve sclerosis. PHARMACOLOGY ASSOCIATE: Clarisse Aj RDCS
[2016-10-25] MEDS: HYDROmorphone 1 MG/ML 1 ML SYRINGE IVP PRN ×5 (11:40→16:47)
[2016-10-25] MEDS ORDERED: IV FLUID CONTINUATION 1,000 ML IV ONE (13:29)
[2016-10-25] MEDS ORDERED: fentaNYL (PF) 50 MCG/ML 2 ML AMP ONE (14:25)
[2016-10-25] MEDS ORDERED: NEOSTIGMINE 1 MG/ML 10 ML VIAL ONE (14:25)
[2016-10-25] MEDS ORDERED: PROPOFOL 10 MG/ML 20 ML VIAL IV ONE (14:25)
[2016-10-25] MEDS ORDERED: SUCCINYLCHOLINE CHLORIDE 100 MG/5 ML SYR IV ONE (14:25)
[2016-10-25] MEDS ORDERED: ePHEDrine 50 MG/ML 1 ML AMP ONE (14:25)
[2016-10-25] MEDS ORDERED: ROCURONIUM BROMIDE 10 MG/ML 10 ML VIAL IV ONE (14:25)
[2016-10-25] MEDS ORDERED: LIDOCAINE 1% INJ 10MG/ML (20 ML MDV) ONE (14:25)
[2016-10-25] MEDS ORDERED: GLYCOPYRROLATE 0.2 MG/ML 2 ML VIAL ONE (14:25)
[2016-10-25] MEDS ORDERED: PHENYLEPHRINE-0.9% NACL SYG 1 MG/10 ML SYRINGE ONE (14:25)
[2016-10-25] MEDS ORDERED: MIDAZOLAM 2 MG/2 ML VIAL ONE (14:25)
[2016-10-25] MEDS ORDERED: ceFAZolin 1,000 MG in SODIUM CHLORIDE 0.9% 1,000 ML IRRIGATION ONE (14:53)
[2016-10-25] MEDS ORDERED: HYDROcodone/APAP 5-325MG 1 EACH TAB PO PRN (15:10)
[2016-10-25] MEDS ORDERED: NALOXONE 0.4 MG/ML 1 ML VIAL IV PRN (15:10)
[2016-10-25] MEDS ORDERED: hydrOXYzine PAMOATE 25 MG CAP PO PRN (15:10)
[2016-10-25] MEDS ORDERED: HYDROmorphone 1 MG/ML 1 ML SYRINGE IVP PRN ×3 (15:10)
[2016-10-25] MEDS ORDERED: LACTATED RINGERS 1,000 ML IV ONE (15:46)
--- NOTE | 2016-10-25 15:52 | FL ---
EXAMINATION TYPE: FL guidance operating room, XR Hip Complete RT DATE OF EXAM: 10/25/2016 CLINICAL HISTORY: Right hip fracture. TECHNIQUE: Fluoroscopy. Complete right hip x-ray. COMPARISON: Pelvic x-ray from yesterday.. FINDINGS: Fluoroscopic guidance was provided during open reduction internal fixation procedure perfo rmed by Dr. Wilkins. A total of 112 seconds of fluoroscopic time was utilized during the procedure and 2 spot intraoperative images are acquired. Images acquired show placement of lateral fixating hardware with multiple distal transverse fixating screws and large femoral neck fixating screws through intertrochanteric fracture left proximal femur. Improved alignment is seen after reduction and fixation. IMPRESSION: As Above.
[2016-10-25 16:30] LABS: Basophils % (A) 0 %; CH 29.8; CHCM 31.4; Eosinophils % (A) 0 %; HCT 30.4 % (34.0-46.0); HDW 2.22; HGB 9.8 gm/dL (11.4-16.0); Luc # (Auto) 0.04; Luc % (Auto) 1; Lymphocytes # (A) 0.6 k/uL (1.0-4.8); Lymphocytes % (A) 7 %; MCH 30.6 pg (25.0-35.0); MCHC 32.2 g/dL (31.0-37.0); MCV 95.2 fL (80.0-100.0); Mean Platelet Volume 8.2; Monocytes # (A) 0.2 k/uL (0-1.0); Monocytes % (A) 2 %; Neutrophils # (A) 8.7 k/uL (1.3-7.7); Neutrophils % (A) 90 %; RBC 3.19 m/uL (3.80-5.40); RDW 12.3 % (11.5-15.5); WBC 9.6 k/uL (3.8-10.6); WBC (Perox) 10.08
[2016-10-25] MEDS: LACTATED RINGERS 1,000 ML IV SCH ×3 (16:57→21:12)
[2016-10-25] MEDS: ceFAZolin 2 GM in SODIUM CHLORIDE 0.9% 100 ML IVPB SCH (17:42)
[2016-10-25] MEDS: SENNOSIDES-DOCUSATE SODIUM 1 EACH TAB PO SCH (21:16)
[2016-10-25] MEDS ORDERED: TEMAZEPAM 15 MG CAP PO PRN (22:00)
--- NOTE | 2016-10-25 23:03 | PN ---
DATE OF SERVICE: 10/25/2016 INTERVAL HISTORY: Ms. Treadwell is a 66-year-old female with a known history of atrial fibrillation, hyperthyroidism and GERD, was admitted to the hospital status post fall and right hip closed fracture as well as closed compression fracture L3 lumbar vertebra. Patient had episode of supraventricular tachycardia, which has been controlled and currently maintained in sinus rhythm. Heart rate is controlled with beta blockers as well as flecainide. However, the patient is planning for right hip ORIF today. Otherwise, patient currently n.p.o. and pain is fairly controlled. Complete review of systems negative except as above. No complaints of chest pain. No short of breath. No nausea or vomiting, abdominal pain. No headache or dizziness or lightheadedness. No palpitations. Current medications include: 1. [place]. 2. Cefazolin. 3. Flecainide. 4. Heparin subcu. 5. Dilaudid. 6. Vistaril. 7. Ringer lactate. 8. Metoprolol. 9. Multivitamin. 10. Narcan. 11. Zofran. 12. Protonix. 13. MiraLax. 14. Senokot. 15. Temazepam. 16. Normal saline at 75 mL per hour. PHYSICAL EXAMINATION: A 66-year-old female lying in the bed. Awake x3, appears to be in no apparent distress. VITALS: Blood pressure is 124/62, pulse is 84, respirations 20, temperature afebrile, pulse ox saturating well on room air. HEENT: Atraumatic, normocephalic. Neck is supple. No JVD. CVS: S1, S2 heard. No murmurs. No gallops. No rub. LUNGS: Bilateral air entry is present. No wheezing. No crackles. ABDOMEN: Soft, nontender, bowel sounds present. 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 No focal deficits. EXTREMITIES: No edema. Pulses palpable bilaterally. No clubbing or cyanosis. PSYCHIATRIC: Cooperative. Musculoskeletal: Right hip pain with movement. Patient does a back brace on. LABORATORY DATA: WBC 9.6, hemoglobin 9.8, platelets 192. Sodium 139, potassium 3.8 and chloride 109, bicarb 22, BUN 13, creatinine 0.42. TSH 0.018 and FT4 is 3.8. UA negative for infection. IMPRESSION: 1. Status post fall and right hip fracture and L3 vertebra compression fracture. 2. The patient underwent ORIF of right hip today. Ortho is following this patient. 3. Paroxysmal atrial fibrillation history, on anticoagulation at home. ( ) in sinus rhythm currently. Continue with beta frances and Flecainide. 4. Hyperthyroidism with low TSH and elevated free T4 level to 3.8. Continue the methimazole 5 mg b.i.d. which will be increased. 5. Leukocytosis most likely reactive, normalizing now. 6. Gastroesophageal reflux disease. 7. History of lumbar disc disease. DISCUSSION AND PLAN: Patient will be continued on pain management and continue with fluids and anticoagulation has been held. We will continue telemonitoring and cardiology and orthopedics on board. Further recommendations based on the clinical course.
[2016-10-26] MEDS: ceFAZolin 2 GM in SODIUM CHLORIDE 0.9% 100 ML IVPB SCH (00:54)
[2016-10-26] MEDS: HEPARIN SODIUM,PORCINE 5,000 UNIT/ML 1 ML VIAL SQ SCH ×2 (00:55→07:53)
[2016-10-26] MEDS: LACTATED RINGERS 1,000 ML IV SCH ×4 (04:17→20:29)
[2016-10-26 06:26] LABS: Basophils % (A) 0 %; CH 29.9; CHCM 31.9; Eosinophils % (A) 0 %; HCT 27.5 % (34.0-46.0); HDW 2.25; HGB 8.9 gm/dL (11.4-16.0); Luc # (Auto) 0.09; Luc % (Auto) 1; Lymphocytes # (A) 0.9 k/uL (1.0-4.8); Lymphocytes % (A) 12 %; MCH 30.4 pg (25.0-35.0); MCHC 32.2 g/dL (31.0-37.0); MCV 94.3 fL (80.0-100.0); Mean Platelet Volume 8.1; Monocytes # (A) 0.6 k/uL (0-1.0); Monocytes % (A) 8 %; Neutrophils # (A) 5.9 k/uL (1.3-7.7); Neutrophils % (A) 79 %; RBC 2.92 m/uL (3.80-5.40); RDW 12.5 % (11.5-15.5); WBC 7.5 k/uL (3.8-10.6); WBC (Perox) 8.11
[2016-10-26 06:34] LABS: Anion Gap 6 mmol/L; Blood Urea Nitrogen 16 mg/dL (7-17); Calcium 9.2 mg/dL (8.4-10.2); Carbon Dioxide 23 mmol/L (22-30); Chloride 107 mmol/L (98-107); Glucose 122 mg/dL (74-99); Non-African American GFR(MDRD) >60 (>60 ml/min/1.73 sqM); Potassium 4.5 mmol/L (3.5-5.1); Sodium 136 mmol/L (137-145)
[2016-10-26] MEDS: PANTOPRAZOLE 40 MG TABLET PO SCH (06:37)
[2016-10-26] MEDS: SODIUM CHLORIDE 0.9% 1,000 ML IV SCH (07:53)
[2016-10-26] MEDS: METOPROLOL TARTRATE 25 MG TAB PO SCH ×2 (07:53→20:27)
[2016-10-26] MEDS: FLECAINIDE 50 MG TAB PO SCH ×2 (07:53→20:27)
[2016-10-26] MEDS: METHIMAZOLE 5 MG TAB PO SCH ×2 (07:54→20:27)
--- NOTE | 2016-10-26 09:28 | P.PN ---
Subjective Principal diagnosis: Right hip fracture, status post ORIF of the right hip, L3 compression fracture. This is a well-appearing 66-year-old female who was admitted for right hip fracture on 10/24/2016. Patient is status post ORIF of the right hip. This is postoperative day #1. Patient states her pain has been better controlled after surgery. Patient states the pain in her right wrist is still there but has slightly improved since yesterday. Patient states her back continues to hurt with certain movements, but if she is laying still it does not hurt. Patient denies any numbness, tingling, weakness, change in bowel or bladder function or loss of sensation to the saddle area. Patient has no new complaints today. Objective - Vital Signs Vital signs: Vital Signs Temp 98.2 F 10/26/16 07:51 Pulse 88 10/26/16 07:51 Resp 16 10/26/16 07:51 BP 113/63 10/26/16 07:51 Pulse Ox 97 10/26/16 07:51 Intake & Output 10/25/16 10/26/16 10/26/16 18:59 06:59 18:59 Intake Total 3191 160 120 Output Total 950 875 Balance 2241 -715 120 Intake: IV 2951 Sodium Chloride 0.9% 1, 900 000 ml @ 75 mls/hr IV . [id number] [facility] Rx#:[id number] Intake, IV Titration 160 Amount Lactated Ringers 1,000 ml 160 @ 20 mls/hr IV .Q24H [facility] Rx#:[id number] Oral 240 120 Output: Urine 450 875 Estimated Blood Loss 500 Other: Voiding Method Indwelling Catheter Indwelling Catheter Indwelling Catheter - Exam On exam patient is alert and oriented 3 and vital signs are stable. Patient is in no acute distress. Incision is clean, dry and intact. There was a moderate amount of serosanguineous drainage on the surgical dressing. There is mild tenderness to palpation around the surgical site. Calf is soft and nontender. Patient has full foot and ankle motion. Neurovascular and circulatory status are intact. There is mild tenderness to the radial aspect of the right wrist. Swelling has improved since yesterday. No erythema. Patient has full range of motion of the right wrist and hand. Right upper extremity neurovascular and circulatory statuses are intact. - Labs CBC & Chem 7: 10/26/16 05:38 10/26/16 05:38 Labs: Abnormal Lab Results - Last 24 Hours (Table) 10/25/16 10/25/16 10/26/16 Range/Units 06:20 16:15 05:38 RBC 3.19 L 2.92 L (3.80-5.40) m/uL Hgb 9.8 L 8.9 L (11.4-16.0) gm/dL Hct 30.4 L 27.5 L (34.0-46.0) % Neutrophils # 8.7 H (1.3-7.7) k/uL Lymphocytes # 0.6 L 0.9 L (1.0-4.8) k/uL Sodium (137-145) mmol/L Creatinine (0.52-1.04) mg/dL Glucose (74-99) mg/dL Free T4 3.80 H (0.78-2.19) ng/dL 10/26/16 Range/Units 05:38 RBC (3.80-5.40) m/uL Hgb (11.4-16.0) gm/dL Hct (34.0-46.0) % Neutrophils # (1.3-7.7) k/uL Lymphocytes # (1.0-4.8) k/uL Sodium 136 L (137-145) mmol/L Creatinine 0.40 L (0.52-1.04) mg/dL Glucose 122 H (74-99) mg/dL Free T4 (0.78-2.19) ng/dL Assessment and Plan (1) Closed fracture of right hip Status: Acute (2) Closed compression fracture of L3 lumbar vertebra Status: Acute Plan: #1. Continue routine postoperative care and pain control. #2. Xrays of lumbar spine show compression fracture of L3, DESIR 2 brace ordered and to be worn at all times unless patient is in bed with head of bed less than 45. #3. Nonweightbearing to the right lower extremity #4. Appreciate input from medicine. #5. Will follow patient closely. #6. Patient is planning on discharging to a rehab facility when cleared medically and orthopedically.
[2016-10-26] MEDS: MULTIVITAMINS, THERA 1 EACH TAB PO SCH (11:36)
--- NOTE | 2016-10-26 12:06 | P.PN ---
Subjective Principal diagnosis: Atrial flutter This pleasant 66-year-old female with history of hypertension, hyperlipidemia, hyperthyroidism currently receiving radioactive iodine, atrial flutter, who follows with Dr. Arevalo in the office. She presented to the hospital after she had experienced a fall. She did incur a right hip fracture and underwent ORIF of the right hip yesterday. Cardiology was asked to see the patient in consultation because of atrial flutter with rapid ventricular response. Patient was seen and examined this morning, feeling well overall, and much less pain today. Currently in a normal sinus rhythm. We did speak with orthopedics, and they have okayed the patient being reinitiated on anticoagulation. Objective - Vital Signs Vital signs: Vital Signs Temp 97.6 F 10/26/16 11:37 Pulse 71 10/26/16 11:37 Resp 16 10/26/16 11:37 BP 101/50 10/26/16 11:37 Pulse Ox 96 10/26/16 11:37 Intake & Output 10/25/16 10/26/16 10/26/16 18:59 06:59 18:59 Intake Total 3191 160 120 Output Total 950 875 Balance 2241 -715 120 Intake: IV 2951 Sodium Chloride 0.9% 1, 900 000 ml @ 75 mls/hr IV . [id number] [facility] Rx#:[id number] Intake, IV Titration 160 Amount Lactated Ringers 1,000 ml 160 @ 20 mls/hr IV .Q24H [facility] Rx#:[id number] Oral 240 120 Output: Urine 450 875 Estimated Blood Loss 500 Other: Voiding Method Indwelling Catheter Indwelling Catheter Indwelling Catheter - Exam PHYSICAL EXAMINATION: HEENT: Head is atraumatic, normocephalic. Pupils equal, round. Neck is supple. There is no elevated jugular venous pressure. HEART EXAMINATION: Heart S1, S2 normal. No murmur or gallop heard. CHEST EXAMINATION: Lungs are clear to auscultation and precussion. No chest wall tenderness is noted on palpation or with deep breathing. ABDOMEN: Soft, nontender. Bowel sounds are heard. No organomegaly noted. EXTREMITIES: 2+ peripheral pulses with trace evidence of peripheral edema and no calf tenderness noted. Positive discomfort in the right hip and buttocks area NEUROLOGIC patient is awake, alert and oriented -3. . - Labs CBC & Chem 7: 10/26/16 05:38 10/26/16 05:38 Labs: Abnormal Lab Results - Last 24 Hours (Table) 10/25/16 10/26/16 10/26/16 Range/Units 16:15 05:38 05:38 RBC 3.19 L 2.92 L (3.80-5.40) m/uL Hgb 9.8 L 8.9 L (11.4-16.0) gm/dL Hct 30.4 L 27.5 L (34.0-46.0) % Neutrophils # 8.7 H (1.3-7.7) k/uL Lymphocytes # 0.6 L 0.9 L (1.0-4.8) k/uL Sodium 136 L (137-145) mmol/L Creatinine 0.40 L (0.52-1.04) mg/dL Glucose 122 H (74-99) mg/dL Assessment and Plan Plan: Assessment and plan #1 fall, with evidence of a displaced intertrochanteric fracture of the right hip. Status post ORIF of the right hip. #2 hypertension #3 hyperlipidemia #4 atrial flutter with rapid ventricular response, paroxysmal. Currently in normal sinus rhythm #5 history of typical atrial flutter #6 hypothyroidism, currently receiving radioactive iodine treatment Plan We will resume the patient's Eliquis 5 mg one tablet by mouth twice a day. Discontinue subcu heparin. When the patient is discharged home from the hospital follow-up appointment will be made with Dr. Arevalo in the office. DNP note has been reviewed, I agree with a documented findings and plan of care. Patient was seen and examined.
[2016-10-26] MEDS: APIXABAN 5 MG TAB PO SCH ×2 (14:17→20:27)
[2016-10-26] MEDS: SENNOSIDES-DOCUSATE SODIUM 1 EACH TAB PO SCH (20:27)
[2016-10-27] MEDS: SODIUM CHLORIDE 0.9% 1,000 ML IV SCH ×2 (04:48→12:08)
[2016-10-27] MEDS: LACTATED RINGERS 1,000 ML IV SCH ×3 (08:40→21:34)
[2016-10-27] MEDS: PANTOPRAZOLE 40 MG TABLET PO SCH (08:40)
[2016-10-27] MEDS: FLECAINIDE 50 MG TAB PO SCH ×2 (08:41→21:33)
[2016-10-27] MEDS: METOPROLOL TARTRATE 25 MG TAB PO SCH ×2 (08:43→23:42)
[2016-10-27] MEDS: METHIMAZOLE 5 MG TAB PO SCH ×2 (08:43→21:34)
[2016-10-27] MEDS: APIXABAN 5 MG TAB PO SCH ×2 (08:44→21:33)
[2016-10-27] MEDS: HYDROcodone/APAP 5-325MG 1 EACH TAB PO PRN (08:49)
[2016-10-27] MEDS ORDERED: METHIMAZOLE 5 MG TAB ONE (09:00)
[2016-10-27] MEDS ORDERED: PANTOPRAZOLE 40 MG TABLET PO ONE (09:00)
[2016-10-27] MEDS ORDERED: FLECAINIDE 50 MG TAB ONE (09:00)
--- NOTE | 2016-10-27 11:30 | PN ---
DATE OF SERVICE: 10/26/2016 Ms. Treadwell is a 66-year-old male with known history of atrial fibrillation and hyperthyroidism and GERD who was admitted to the hospital status post fall and right hip closed fracture as well as closed compression fracture of L3 lumbar vertebrae. Patient had supraventricular tachycardia initially and currently maintained in sinus rhythm. Heart rate is controlled with beta blockers and Flecainide. Patient underwent ORIF of the right hip yesterday. Today patient denied any complaints of hip pain. No palpitations. No complaint of chest pain. No short of breath. Anticoagulation has been resumed now. Anticipate discharge to rehab on Friday. Continue the physical therapy at this time. REVIEW OF SYSTEMS: CONSTITUTIONAL: No fever. No chills. RESPIRATORY: No cough or sputum production. CARDIOVASCULAR: No chest pain. No shortness of breath. No leg swelling. ABDOMEN: No nausea, vomiting, abdominal pain. GENITOURINARY: Negative. ENDOCRINE: Negative. PSYCHIATRY: Negative. SKIN: Negative. All other fourteen-point review of systems negative except as above. CURRENT MEDICATIONS: Reviewed. PHYSICAL EXAMINATION: A 66 -year-old female lying in bed comfortably, awake, alert, oriented, x3, appears to be in no apparent distress. VITALS: Blood pressure is 105/50, pulse is 88. Respiratory rate16, temperature afebrile, pulse ox 93% on room air. HEENT: atraumatic, normocephalic. Neck is supple. No JVD. CVS: S1, S2 heard. No murmurs, no gallop. LUNGS: Bilateral air entry is present. No wheezing. No crackles. Extremities: Right hip ( ) surgical site is intact. No drainage noted. No warmth. No clubbing or cyanosis. PSYCHIATRIC: Cooperative, nonsuicidal. LABS: WBC count 10.4, hemoglobin 8.9, platelets 190, sodium 136, potassium 4.5, chloride 107, bicarb 63, BUN 16, creatinine 0.4, calcium 9.2. IMPRESSION: 1. Status post fall and right hip fracture as well as L3 compression fracture, status post ORIF of the right hip, postop day one. 2. Paroxysmal atrial fibrillation with sinus tachycardia on admission, controlled now. Resume anticoagulation. Continue with beta blockers as well as ( ). 3. Hypothyroidism with low TSH level, elevated free T4, 2.8. ( ) dose has been increased to 5 mg b.i.d. Followed as an outpatient for repeat TSH level in the next 4 to 6 weeks. 4. Leukocytosis on admission, normalized now. 5. Gastroesophageal reflux disease. 6. History of lumbar disc disease. DISCUSSION AND PLAN: Patient will be continued on pain management and anticoagulation has been resumed. Continue physical therapy and continue with the bowel regimen. Anticipate discharge to rehab possibly on Friday.
--- NOTE | 2016-10-27 11:51 | P.PN ---
Subjective Principal diagnosis: Atrial flutter This pleasant 66-year-old female with history of hypertension, hyperlipidemia, hyperthyroidism currently receiving radioactive iodine, atrial flutter, who follows with Dr. Arevalo in the office. She presented to the hospital after she had experienced a fall. She did incur a right hip fracture and underwent ORIF of the right hip. Cardiology was asked to see the patient in consultation because of atrial flutter with rapid ventricular response. Patient was seen and examined this morning, feeling well overall, and much less pain today. Currently in a normal sinus rhythm. Was resumed on Eliquis yesterday. Sitting up in the chair today. Objective - Vital Signs Vital signs: Vital Signs Temp 98.4 F 10/27/16 07:47 Pulse 88 10/27/16 07:47 Resp 16 10/27/16 07:47 BP 101/48 10/27/16 07:47 Pulse Ox 97 10/27/16 07:47 Intake & Output 10/26/16 10/27/16 10/27/16 18:59 06:59 18:59 Intake Total 360 1280 120 Output Total 400 1900 Balance -40 -620 120 Intake: Intake, IV Titration 800 Amount Lactated Ringers 1,000 ml 800 @ 100 mls/hr IV .Q10H NIKKI Rx#:[id number] Oral 360 480 120 Output: Urine 400 1900 Other: Voiding Method Indwelling Catheter Indwelling Catheter Indwelling Catheter # Bowel Movements 0 - Exam PHYSICAL EXAMINATION: HEENT: Head is atraumatic, normocephalic. Pupils equal, round. Neck is supple. There is no elevated jugular venous pressure. HEART EXAMINATION: Heart S1, S2 normal. No murmur or gallop heard. CHEST EXAMINATION: Lungs are clear to auscultation and precussion. No chest wall tenderness is noted on palpation or with deep breathing. ABDOMEN: Soft, nontender. Bowel sounds are heard. No organomegaly noted. EXTREMITIES: 2+ peripheral pulses with trace evidence of peripheral edema and no calf tenderness noted. Positive discomfort in the right hip and buttocks area NEUROLOGIC patient is awake, alert and oriented -3. . - Labs CBC & Chem 7: 10/26/16 05:38 10/26/16 05:38 Assessment and Plan Plan: Assessment and plan #1 fall, with evidence of a displaced intertrochanteric fracture of the right hip. Status post ORIF of the right hip. #2 hypertension #3 hyperlipidemia #4 atrial flutter with rapid ventricular response, paroxysmal. Currently in normal sinus rhythm #5 history of typical atrial flutter #6 hypothyroidism, currently receiving radioactive iodine treatment Plan We will continue the patient on his current medications. Follow-up appointment will be made with Dr. Arevalo post discharge. We'll follow this patient with you now on an as-needed basis only, please don't hesitate to call with any questions. DNP note has been reviewed, I agree with a documented findings and plan of care. Patient was seen and examined.
[2016-10-27] MEDS: MULTIVITAMINS, THERA 1 EACH TAB PO SCH (12:08)
--- NOTE | 2016-10-27 13:02 | P.PN ---
Subjective Principal diagnosis: Right hip fracture, status post ORIF of the right hip, L3 compression fracture. This is a well-appearing 66-year-old female who was admitted for right hip fracture on 10/24/2016. Patient is status post ORIF of the right hip. This is postoperative day #2. Patient states her pain has been under control. Patient states she has been wearing her back brace while up. Patient states her back is still painful with certain movements but not when lying still. Patient complains of mild pain to the right wrist but states it is not getting worse. Patient denies any numbness, tingling, weakness, change in bowel or bladder function or loss of sensation to the saddle area. Patient has no new complaints today. Objective - Vital Signs Vital signs: Vital Signs Temp 97.4 F L 10/27/16 04:00 Pulse 86 10/27/16 04:00 Resp 17 10/27/16 04:00 BP 104/52 10/27/16 04:00 Pulse Ox 96 10/27/16 04:00 Intake & Output 10/26/16 10/27/16 10/27/16 18:59 06:59 18:59 Intake Total 360 1280 Output Total 400 1900 Balance -40 -620 Intake: Intake, IV Titration 800 Amount Lactated Ringers 1,000 ml 800 @ 100 mls/hr IV .Q10H NIKKI Rx#:[id number] Oral 360 480 Output: Urine 400 1900 Other: Voiding Method Indwelling Catheter Indwelling Catheter # Bowel Movements 0 - Exam On exam patient is alert and oriented 3 and vital signs are stable. Patient is in no acute distress. Incision is clean, dry and intact. Dressing was taken down and changed. There is a mild amount of serosanguineous drainage on the dressing today. There is mild tenderness to palpation around the surgical site. Calf is soft and nontender. Patient has full foot and ankle motion. Neurovascular and circulatory status are intact. There is mild tenderness to the radial aspect of the right wrist. There is still mild swelling and faint ecchymosis to the right wrist. No erythema. Patient has full range of motion of the right wrist and hand. - Labs CBC & Chem 7: 10/26/16 05:38 10/26/16 05:38 Assessment and Plan (1) Closed fracture of right hip Status: Acute (2) Closed compression fracture of L3 lumbar vertebra Status: Acute Plan: #1. Continue routine postoperative care and pain control. #2. Xrays of lumbar spine show compression fracture of L3, DESIR 2 brace ordered and to be worn at all times unless patient is in bed with head of bed less than 45. #4. Appreciate input from medicine. #5. Will follow patient closely. #6. Patient is planning on discharging to a rehab facility when cleared medically and orthopedically.
[2016-10-27 15:54] LABS: Basophils % (A) 0 %; CH 29.9; CHCM 31.8; Eosinophils # (A) 0.1 k/uL (0-0.7); Eosinophils % (A) 1 %; HCT 24.8 % (34.0-46.0); HDW 2.23; HGB 7.9 gm/dL (11.4-16.0); Luc # (Auto) 0.17; Luc % (Auto) 2; Lymphocytes # (A) 2.4 k/uL (1.0-4.8); Lymphocytes % (A) 28 %; MCH 30.2 pg (25.0-35.0); MCV 94.4 fL (80.0-100.0); Mean Platelet Volume 8.5; Monocytes # (A) 0.5 k/uL (0-1.0); Monocytes % (A) 6 %; Neutrophils # (A) 5.6 k/uL (1.3-7.7); Neutrophils % (A) 63 %; RBC 2.62 m/uL (3.80-5.40); RDW 12.5 % (11.5-15.5); WBC 8.8 k/uL (3.8-10.6); WBC (Perox) 8.85
[2016-10-27] MEDS: SENNOSIDES-DOCUSATE SODIUM 1 EACH TAB PO SCH (21:34)
[2016-10-28 02:07] VITALS: RESP 16
[2016-10-28] MEDS: SODIUM CHLORIDE 0.9% 1,000 ML IV SCH (02:13)
[2016-10-28] MEDS: LACTATED RINGERS 1,000 ML IV SCH (04:37)
[2016-10-28] MEDS: HYDROcodone/APAP 5-325MG 1 EACH TAB PO PRN ×2 (06:25→12:29)
[2016-10-28] MEDS: PANTOPRAZOLE 40 MG TABLET PO SCH (08:24)
[2016-10-28] MEDS: APIXABAN 5 MG TAB PO SCH (08:24)
[2016-10-28] MEDS: METHIMAZOLE 5 MG TAB PO SCH (08:25)
[2016-10-28] MEDS: MULTIVITAMINS, THERA 1 EACH TAB PO SCH (08:25)
[2016-10-28 08:46] VITALS: PULSE 79; TEMP 98.5
[2016-10-28 09:44] VITALS: BP 108/52
--- NOTE | 2016-10-28 10:09 | PN ---
DATE OF SERVICE: 10/27/2016 INTERVAL HISTORY: Mrs. Treadwell is a 66-year-old female with known history of atrial fibrillation, and hypothyroidism and GERD, admitted to the hospital status post fall on the right hip closed fracture as well as closed compression fracture of L3 lumbar vertebra. Patient had ( ) initially. Heart rate is controlled now. Patient underwent open reduction and internal fixation of right hip on 10/25. Postoperative day 2. Currently pain is much improved. Pain is fairly controlled with pain medications. Otherwise, anticoagulation has been restarted now. Anticipate discharge to rehab on Friday. Otherwise, no complaint of chest pressure, short of breath. No nausea, vomiting, or abdominal pain. No diarrhea. No dysuria. No bladder or bowel incontinence. All other fourteen-point review of systems negative except as above. CURRENT MEDICATIONS: Reviewed. PHYSICAL EXAMINATION: A 66-year-old female lying in bed comfortably, awake, alert, oriented x3, appears to be in no apparent distress. VITALS: Blood pressure is 98/53, pulse is 76, respiration 16, temperature afebrile, pulse ox 98% on room air. HEENT: Atraumatic, normocephalic. Neck is supple. No JVD. CVS: S1, S2 heard. No murmurs, no gallop. LUNGS: Bilateral air entry is present. No wheezing, no crackles. ABDOMEN: Soft, nontender. Bowel sounds present. OPERATION SUPERVISOR: Alert and oriented x3. No focal deficit. EXTREMITIES: No edema. Pulses palpable bilaterally. No clubbing. PSYCH: Cooperative. Right hip surgical scar is intact. No leg swelling or warmth noted. ( ) LABORATORY DATA: WBC 8.8, hemoglobin 7.9, platelets 193. IMPRESSION: 1. Status post right hip fracture as well as L3 compression fracture, status post open reduction and internal fixation of right hip, postoperative day 2. 2. Paroxysmal atrial fibrillation with supraventricular tachycardia on admission. Currently rate controlled. Resume anticoagulation and beta blockers. 3. Hypothyroidism with low TSH levels and elevated FT4. Methimazole dose has been increased to 5 mg b.i.d. Outpatient follow with TSH in the next 4 to 6 weeks. 4. Leukocytosis on admission, normalized now. 5. Normocytic anemia. 6. History of lumbar disc disease. DISCUSSION AND PLAN: Patient will be continued on pain management and anticoagulation as ( ). Will continue the current management. Continue the PT, OT and pain medications and bowel regimen. Patient should be able to be discharged to rehab possibly on Friday.
--- NOTE | 2016-10-28 10:20 | P.DS ---
Providers Date of admission: 10/24/16 03:42 Expected date of discharge: 10/28/16 Attending physician: Seth Wilkins Consults: 10/24/16 07:43 Consult Physician Stat Consulting Provider: Mary Vora Consult Reason/Comments: medical management Do you want consulting provider notified?: Yes 10/24/16 18:44 Consult Physician Stat Consulting Provider: Radha Dahl Consult Reason/Comments: svt Do you want consulting provider notified?: Yes Primary care physician: Stated None - Discharge Diagnosis(es) (1) Closed fracture of right hip Patient is a 66-year-old female who was admitted to the OR on 10/25/2016 to undergo ORIF of right intertrochanteric hip fracture. She underwent the above procedure which she tolerated well without complication. Her postoperative hospital course has remained without complication. She also has L3 and L4 compression fractures which are stable being treated with bracing. On day of discharge she is afebrile, vital signs stable, surgical wounds benign, neurovascular status intact, abdomen soft nontender, calf soft and nontender, 2 + dorsalis pedis pulse and less than 2 second cap refill present, motor and sensation intact throughout the right lower extremity, labs within acceptable ranges, pain controlled with oral pain medication, denying new complaints, tolerating by mouth meds and diet, voiding without difficulty, passing flatus. Review of systems is negative for numbness, tingling, calf pain, abdominal pain , fever, chills, chest pain, shortness of breath, nausea, vomiting, dizziness, headaches, slurred speech or other. Current Visit: Yes Status: Acute Priority: Medium Procedures: ORIF right hip fracture Patient Condition at Discharge: Good Plan - Discharge Summary New Discharge Prescriptions: New Docusate [Colace] 100 mg PO BID #60 capsule HYDROcodone/APAP 5-325MG [[place] 5-325] 1 tab PO Q4HR PRN #60 tab PRN Reason: Pain Continue Apixaban [Eliquis] 5 mg PO BID Omeprazole 20 mg PO DAILY Metoprolol Tartrate 25 mg PO BID Flecainide Acetate 50 mg PO BID Methimazole [Tapazole] 5 mg PO DAILY Discharge Medication List Apixaban [Eliquis] 5 mg PO BID 10/24/16 [History] Flecainide Acetate 50 mg PO BID 10/24/16 [History] Methimazole [Tapazole] 5 mg PO DAILY 10/24/16 [History] Metoprolol Tartrate 25 mg PO BID 10/24/16 [History] Omeprazole 20 mg PO DAILY 10/24/16 [History] Docusate [Colace] 100 mg PO BID #60 capsule 10/28/16 [Rx] HYDROcodone/APAP 5-325MG [[place] 5-325] 1 tab PO Q4HR PRN #60 tab 10/28/16 [Rx] Follow up Appointment(s)/Referral(s): None,Stated [Primary Care Provider] - 1-2 days Seth Wilkins DO [Doctor of Osteopathic Medicine] - 2 Weeks Activity/Diet/Wound Care/Special Instructions: Nonweightbearing right lower extremity Keep wound clean and dry Take meds as directed Follow-up with Dr. Wilkins in office [phone] Discharge Disposition: TRANSFER TO SNF/ECF
[2016-10-28] MEDS: FLECAINIDE 50 MG TAB PO SCH (10:38)
[2016-10-28] MEDS: METOPROLOL TARTRATE 25 MG TAB PO SCH (10:39)
--- NOTE | 2016-10-28 19:45 | OP ---
DATE OF SERVICE: 10/25/2016 SURGEON: SHAILA SCHRADER DO MANAGED CARE PROVIDER: PREOPERATIVE DIAGNOSIS: Displaced ( ) fracture right hip. POSTOPERATIVE DIAGNOSIS: Displaced ( ) fracture right hip. OPERATION: Open reduction and internal fixation of a displaced intertrochanteric ( ) fracture of the right hip utilizing ( ) full plate. ANESTHESIA: ESTIMATED BLOOD LOSS: SPECIMENS REMOVED: COMPLICATIONS: OPERATIVE FINDINGS: DESCRIPTION OF PROCEDURE: The patient was taken to the operating room suite and placed in supine position. General inhalation anesthesia was performed by the Department of Anesthesia. The patient was placed on a fracture table, secured and right hip was reduced. X-ray documented alignment and position. ( ) of the hip. Betadine prep was carried out over the right hip. Sterile drapes applied in the usual manner. ( ) over the proximal tendon. Sharp dissection through the subcutaneous tissue was performed. Tensor fascia kori was incised longitudinally. Sharp dissection through the vastus lateralis was carried out to the lateral ( ) of the proximal femur. ( ) through the ( ). 135 degree guidewire was inserted into the femoral head. Incision checked in both AP and lateral positions. A mean 75 mm ( ) initiated. A 75 mm compression ( ) was inserted into the proximal head and ( ). The guidewire was removed. The 135 degree lag hole side plate was then placed ( ) and secured to the lateral femur with ( ) cortical screws. The fracture was reduced ( ) approximated ( ) with the plate ( ) compression screws ( ). The area was irrigated copiously. X-rays were obtained ( ) procedure documenting appropriate alignment and positioning. Vastus lateralis was approximated ( ) Vicryl suture. The tensor fascia kori was approximated with #2 Quill ( ) fashion. Subcutaneous tissue ( ) superficial with 2-0 Vicryl ( ). Skin flaps approximated with skin flaps. Betadine, Adaptic and sterile pressure dressing applied. The patient was transferred to the recovery room in satisfactory postop condition. GROSS PATHOLOGY: There was evidence of a displaced intertroch ( ). Estimated blood loss 400 to 500 mL.
== END 2016-10-28 13:45 | DRG 481 ==
LOC: EC 00:58 → 6SEL 03:42 → 5MS5E 14:35 → 6SEL 19:44 → 3SUR 10-27 13:47
PROVIDERS: ADMIT Orthopaedic Surgery; ATTEND Orthopaedic Surgery
PROC: 0QS604Z Reposition Right Upper Femur with Internal Fixation Device, Open Approach (ICD-10-PCS; principal; 2016-10-25 15:15)
DX: S72.141A Displaced intertrochanteric fracture of right femur, initial encounter for closed fracture (principal); I47.1 Supraventricular tachycardia; I48.3 Typical atrial flutter; M48.56XA Collapsed vertebra, not elsewhere classified, lumbar region, initial encounter for fracture; I48.0 Paroxysmal atrial fibrillation; M51.36 Other intervertebral disc degeneration, lumbar region; K21.9 Gastro-esophageal reflux disease without esophagitis; F17.200 Nicotine dependence, unspecified, uncomplicated; E05.90 Thyrotoxicosis, unspecified without thyrotoxic crisis or storm; I10 Essential (primary) hypertension; E78.5 Hyperlipidemia, unspecified; D64.9 Anemia, unspecified; G89.29 Other chronic pain; M19.90 Unspecified osteoarthritis, unspecified site; M79.641 Pain in right hand; M79.89 Other specified soft tissue disorders; Z79.01 Long term (current) use of anticoagulants; Z79.899 Other long term (current) drug therapy; Z79.82 Long term (current) use of aspirin; Z96.652 Presence of left artificial knee joint; Z82.49 Family history of ischemic heart disease and other diseases of the circulatory system; W01.0XXA Fall on same level from slipping, tripping and stumbling without subsequent striking against object, initial encounter; Y92.009 Unspecified place in unspecified non-institutional (private) residence as the place of occurrence of the external cause
CPT/HCPCS: 36415; 51702; 71010; 72100; 72170; 73502; 80048; 80053; 81001; 82550; 82553; 83735; 84439; 84443; 85025; 85610; 85730; 86850; 86900; 86901; 93005; 93306; 96361; 96372; 96374; 96375; 99291

== ENCOUNTER 2017-10-09 06:35 | Day surgery (SDC) | payer BC, MEDICARE ==
[~2017-10-09 06:35] MED LIST: LACTATED RINGERS 1,000 ML IV SCH; LIDOCAINE 1% 20 ML VIAL (10MG/ML) FOR IV START INTRADERMA PRN; MIDAZOLAM 2 MG/2 ML VIAL IV PRN; SODIUM CHLORIDE 0.9% 1,000 ML IV SCH
[2017-10-09 08:13] LABS: Basophils % (A) 1 %; Eosinophils # (A) 0.2 k/uL (0-0.7); Eosinophils % (A) 3 %; HCT 41.8 % (34.0-46.0); HGB 13.8 gm/dL (11.4-16.0); Lymphocytes # (A) 1.6 k/uL (1.0-4.8); Lymphocytes % (A) 21 %; MCH 31.8 pg (25.0-35.0); MCHC 33.1 g/dL (31.0-37.0); Mean Platelet Volume 6.9; Monocytes # (A) 0.4 k/uL (0-1.0); Monocytes % (A) 5 %; Neutrophils # (A) 5.5 k/uL (1.3-7.7); Neutrophils % (A) 70 %; Platelet Count 287 k/uL (150-450); RBC 4.35 m/uL (3.80-5.40); RDW 13.1 % (11.5-15.5); WBC 7.9 k/uL (3.8-10.6)
[2017-10-09] MEDS ORDERED: HYDROmorphone (PF) 1 MG/ML ONE (08:22)
[2017-10-09] MEDS ORDERED: NEOSTIGMINE 1 MG/ML 10 ML VIAL ONE (08:22)
[2017-10-09] MEDS ORDERED: IV FLUID CONTINUATION 1,000 ML IV ONE (08:22)
[2017-10-09] MEDS ORDERED: SUCCINYLCHOLINE CHLORIDE 100 MG/5 ML SYR IV ONE (08:22)
[2017-10-09] MEDS ORDERED: PROPOFOL 10 MG/ML 20 ML VIAL IV ONE (08:22)
[2017-10-09] MEDS ORDERED: ISOPROTERENOL 250 MCG/1.25 ML SYR IV ONE (08:22)
[2017-10-09] MEDS ORDERED: GLYCOPYRROLATE 0.2 MG/ML 2 ML VIAL ONE (08:22)
[2017-10-09] MEDS ORDERED: VECURONIUM 10 MG VIAL IV ONE (08:22)
[2017-10-09] MEDS ORDERED: fentaNYL (PF) 50 MCG/ML 2 ML AMP ONE (08:22)
[2017-10-09] MEDS ORDERED: LABETALOL 5 MG/ML VIAL MDV ONE (08:22)
[2017-10-09] MEDS ORDERED: LIDOCAINE 1% INJ 10MG/ML (20 ML MDV) ONE (08:22)
[2017-10-09 08:24] LABS: Anion Gap 13 mmol/L; Blood Urea Nitrogen 16 mg/dL (7-17); Calcium 8.8 mg/dL (8.4-10.2); Carbon Dioxide 24 mmol/L (22-30); Chloride 107 mmol/L (98-107); Glucose 99 mg/dL (74-99); Potassium 4.3 mmol/L (3.5-5.1); Sodium 144 mmol/L (137-145)
[2017-10-09] MEDS ORDERED: LIDOCAINE 2% INJ 20 MG/ML (20 ML MDV) ONE (08:29)
[2017-10-09] MEDS ORDERED: HEPARIN SODIUM 1,000 UN/ML (10ML VL) ONE (08:50)
[2017-10-09] MEDS ORDERED: LIDOCAINE 2% INJ 20 MG/ML SQ ONE (08:58)
[2017-10-09] MEDS ORDERED: HEPARIN SODIUM (1,000 UNIT/ML) 1,000 UNIT in SODIUM CHLORIDE 0.9% 1,000 ML IRRIGATION ONE (10:50)
[2017-10-09] MEDS ORDERED: ACETAMINOPHEN TAB 325 MG TAB PO PRN (10:56)
[2017-10-09] MEDS ORDERED: HYDROcodone/APAP 5-325MG 1 EACH TAB PO PRN (10:56)
[2017-10-09] MEDS: ACETAMINOPHEN IV (For NPO) 1,000 MG in EMPTY BAG 1 BAG IVPB ONE ×2 (11:45→12:06)
--- NOTE | 2017-10-09 12:23 | CE ---
CARDIAC ELECTROPHYSIOLOGY REPORT Devora Treadwell is a 67-year-old female who has very symptomatic atrial flutter with RVR that has required hospitalization in the past. She was brought in for a diagnostic EP study and atrial flutter ablation. PROCEDURE: 1. Patient brought to the EP lab in a fasting state. Written informed consent was obtained prior to the procedure. The procedure was performed under general anesthesia. 2. Three venous sheaths were placed in the right femoral vein and via these diagnostic catheters were placed in the high right atrium, HIS bundle area, right ventricle, coronary sinus, and later in the right atrial isthmus. An intracardiac echo was also placed. 3. The sinus cycle length was 810 milliseconds. OH 140 milliseconds, QRS 101 milliseconds, QT 380 milliseconds no change. AH interval 86 milliseconds, HV interval 41 milliseconds, atrial pacing from the high right atrium, the coronary sinus and right ventricle was performed. There was no evidence for delta waves and no slow pathway conduction. AV node Wenckebach block 400 milliseconds. VA Wenckebach block greater than 600 milliseconds. On Isuprel AV node Wenckebach block improved to 240 milliseconds. VA Wenckebach block improved to 320 milliseconds. Sinus node recovery times were 1357, 1387, and 1134. 4. CS pacing was also performed. 5. Intracardiac echo was performed. A 3D anatomic shell of the isthmus created was made. The patient had a large subeustachian pouch with thick subeustachian ridge and a long isthmus of greater than 5 cm. 6. After 3D mapping, RF ablation was performed along the right atrial isthmus and a complete anatomic line of block was made. The pouch was ablated in its entirety and with pacing maneuvers, it was evident that there was complete block achieved during RF. 7. During RF applications, patient did go into atrial flutter, which also terminated. 8. Thereafter, with differential pacing, bidirectional block was proven. 9. No atrial fibrillation was induced with high-dose Isuprel. No other arrhythmias induced. 10.Patient tolerated procedure well without any acute complications. She was extubated. All catheters were removed. Hemostasis was assured. She was transferred to the recovery room. 11. RESULT: 1. Diagnostic EP study revealing absence of any AV christy reentry or any accessory pathway conduction. 2. No inducible atrial fibrillation on and off Isuprel with pacing. 3. Successful mapping and ablation of atrial flutter. Atrial flutter was induced during RF ablation and then terminated again and a complete bidirectional block was proven. PLAN: Watch patient's blood pressure. The patient's blood pressure was elevated pre- procedure as well as under general anesthesia and she may need further antihypertensive therapy. MMODL / IJN: [id number] /
[2017-10-09] MEDS: LEVOTHYROXINE 50 MCG TAB PO SCH (17:37)
[2017-10-09 18:33] VITALS: BMI 42.5
[2017-10-09] MEDS ORDERED: ATORVASTATIN 40 MG TAB PO SCH (21:00)
[2017-10-09] MEDS: APIXABAN 5 MG TAB PO SCH (21:49)
[2017-10-09] MEDS: FLECAINIDE 50 MG TAB PO SCH (21:49)
[2017-10-09] MEDS: METOPROLOL TARTRATE 25 MG TAB PO SCH (21:49)
[2017-10-10 08:09] VITALS: RESP 18
[2017-10-10] MEDS: METOPROLOL TARTRATE 25 MG TAB PO SCH (09:36)
[2017-10-10] MEDS: LEVOTHYROXINE 50 MCG TAB PO SCH (09:36)
[2017-10-10] MEDS: FLECAINIDE 50 MG TAB PO SCH (09:36)
[2017-10-10] MEDS: APIXABAN 5 MG TAB PO SCH (09:36)
--- NOTE | 2017-10-10 10:15 | DS ---
DISCHARGE SUMMARY This is a 67-year-old female who has very symptomatic atrial flutter with RVR, who underwent successful atrial flutter ablation yesterday with demonstration of complete bidirectional block. She is doing well. Her right groin is tender, but there is no hematoma. Yesterday, her blood pressure was elevated both pre-procedure and during general anesthesia, but today her blood pressure is better controlled. She denies any chest discomfort, dizziness, lightheadedness or palpitations. Her respiratory status is stable. She does have underlying COPD and she has been a smoker. PHYSICAL EXAMINATION: Normal. Breath sounds are reduced bilaterally, but fairly clear. She had a temp of a 100.1 degrees Fahrenheit, this morning it was 99.3 degrees Fahrenheit, blood pressure is 112/65 mmHg, pulse rate in the 70s. EKG is normal. Heart sounds, S1, S2 normal. No rub, no gallop, no murmurs, and no hematoma in the right groin. IMPRESSION: 1. Symptomatic atrial flutter with RVR, currently on Eliquis 5 mg twice daily as well as low-dose flecainide. We are not in atrial fibrillation so far. 2. Hypothyroidism. 3. Dyslipidemia. 4. History of smoking. 5. Chronic obstructive pulmonary disease. SUGGEST: Discharge home today. Follow up with Dr. Arevalo in about 4-6 weeks. A followup will be ordered. Continue Eliquis lifelong. MMODL / IJN: [id number] /
[2017-10-10 12:23] VITALS: BP 129/63; PULSE 56; TEMP 98.3
== END 2017-10-10 12:50 | disposition home or self-care (01) ==
LOC: CATHEP 06:35 → 3OBS 10:50 → CATHEP 10-10 12:50
PROVIDERS: ATTEND Internal Medicine Clinical Cardiac Electrophysiology
DX: I48.3 Typical atrial flutter (principal); J44.9 Chronic obstructive pulmonary disease, unspecified; I10 Essential (primary) hypertension; Z82.49 Family history of ischemic heart disease and other diseases of the circulatory system; E78.5 Hyperlipidemia, unspecified; F17.200 Nicotine dependence, unspecified, uncomplicated; E03.9 Hypothyroidism, unspecified; E66.9 Obesity, unspecified; Z68.41 Body mass index [BMI] 40.0-44.9, adult; M19.90 Unspecified osteoarthritis, unspecified site; Z79.890 Hormone replacement therapy; Z79.01 Long term (current) use of anticoagulants; Z79.899 Other long term (current) drug therapy
CPT/HCPCS: 93623; 93662; 93613; 93653; 80048; 85025; C1894; C1769 ×2; C1893; C1730 ×2; C1759; C1732; J2001 ×2; J2710; J3010; J1644; J1170; J0131; J0330; J2704

== ENCOUNTER → 2018-03-17 | Outpatient (CLI) | payer MEDICARE ==
--- NOTE | 2018-03-19 09:04 | MM ---
Reason for exam: screening (asymptomatic). Last mammogram was performed 2 years and 11 months ago. History: Patient is postmenopausal and is nulliparous. Physical Findings: A clinical breast exam by your physician is recommended on an annual basis and results should be correlated with mammographic findings. MG Screening Mammo w CAD Bilateral CC and MLO view(s) were taken. Prior study comparison: April 25, 2016, mammogram, performed at [facility]. April 10, 2015, bilateral MG screening mammo w CAD. April 04, 2014, bilateral MG screening mammo w CAD. There are scattered fibroglandular densities. No significant changes when compared with prior studies. ASSESSMENT: Benign, BI-RAD 2 RECOMMENDATION: Routine screening mammogram of both breasts in 1 year.
== END | disposition home or self-care (01) ==
LOC: RADMAMWWP 10:40
PROVIDERS: ATTEND Family Medicine
DX: Z12.31 Encounter for screening mammogram for malignant neoplasm of breast (principal)
CPT/HCPCS: 77067

== ENCOUNTER → 2018-09-09 | Outpatient (CLI) | payer MEDICARE ==
--- NOTE | 2018-09-09 18:49 | CONS ---
CONSULTATION DATE OF SERVICE: 09/09/2018 68-year-old lady who has been evaluated in [facility] for possible obstructive sleep apnea-hypopnea syndrome. HISTORY OF PRESENT ILLNESS/ SLEEP WAKE EVALUATION: SLEEP SCHEDULE: Patient usual sleep schedule goes to bed around 11:30 or 12 o'clock and she gets up in the morning around 5 or 6 am in the morning. FALLING ASLEEP: Usually no problems with falling asleep, although she has TV in bedroom. DURING SLEEP: She sleeps on the chair because of knee problems. She wakes up from sleep once with nocturia. DURING THE DAY/SLEEP WAKE EVALUATION: During the day, she feels sleepiness. She takes 2 naps during the day, usually afternoon. [place] Sleepiness Scale although is only 3. No history of hypnagogic hallucinations, sleep paralysis or cataplexy. PAST MEDICAL HISTORY: Positive for atrial flutter, hypertension, hypothyroidism, acid reflux. PAST SURGICAL HISTORY: Left knee replacement. MEDICATIONS ARE: Eliquis, levothyroxine, flecainide, omeprazole, vitamin D, atorvastatin, metoprolol, ferrous sulfate. SOCIAL HISTORY: Positive for smoking for about 30 pack years. Patient trying to quit smoking. Alcohol consumption none. FAMILY HISTORY: Hypertension, heart problems, thyroid problems. REVIEW OF SYSTEMS: Awakenings from sleep, sleepiness during the day, sometimes swelling of legs. PHYSICAL EXAM: lady without distress BP 167/91, HR 80, RR 16, height 5 feet 1-1/2 inches, weight 240 pounds. Body mass index 44.6, temperature 98.1, oxygen saturation at room air 97%. HEENT: Extremely low position of soft palate. Mallampati 4. Restriction of nasal breathing bilaterally significantly. NECK: Wide, 17-1/2 inches in circumference. Supple, no JVD. Thyroid is not palpable. LUNGS Clear to percussion and to auscultation. Good air exchange. No wheezing or rhonchi. HEART S1, S2 irregular. No murmurs, gallops, or rubs. ABDOMEN : Obese. Soft and nontender. Bowel sounds are present. No organomegaly appreciated. GATE TECHNICIAN Awake, alert, and oriented X3. Cranial nerves 2 to 7 intact. There is no fasciculation or atrophy. noted. No focal deficits observed. EXTREMITIES 1+ bilateral ankle edema. IMPRESSION: 1. Awakening from sleep with nocturia extremely low position of soft palate, wide neck, sleepiness, patient takes 2 naps a day. Obstructive sleep apnea-hypopnea syndrome. 2. Obesity. 3. Hypertension. 4. Atrial flutter. 5. Hypothyroidism. 6. Acid reflux. 7. Status post left knee replacement. 8. Thirty pack-year smoker. PLAN: 1. Polysomnography for evaluation of patient's breathing during sleep. 2. CPAP/BiPAP titration if sleep study confirms obstructive sleep apnea-hypopnea syndrome. 3. Preferable position during sleep on the side. 4. No driving if patient feels any sleepiness. 5. I will see patient for follow up visit to explain results of testing and following plan. Thank you very much for referring this patient for consultation. Sincerely, Ash Blackmon MD, PhD, FAASM Diplomat of [place] [employer] [place] [employer] Manager [employer] [facility] [place] MMODL / FRANCISCAN: [id number] /
== END ==
LOC: SLEEP 13:45
PROVIDERS: ATTEND Internal Medicine
DX: G47.33 Obstructive sleep apnea (adult) (pediatric) (principal); E66.9 Obesity, unspecified; I10 Essential (primary) hypertension; E03.9 Hypothyroidism, unspecified; K21.9 Gastro-esophageal reflux disease without esophagitis; I48.92 Unspecified atrial flutter; F17.210 Nicotine dependence, cigarettes, uncomplicated; Z96.652 Presence of left artificial knee joint; Z99.89 Dependence on other enabling machines and devices; Z79.01 Long term (current) use of anticoagulants; Z79.899 Other long term (current) drug therapy
CPT/HCPCS: 99211

== ENCOUNTER → 2019-02-03 | Outpatient (CLI) | payer MEDICARE ==
--- NOTE | 2019-02-03 11:57 | SFUN ---
SLEEP CENTER FOLLOW UP NOTE DATE OF SERVICE: 02/03/2019 A 68-year-old lady who has been followed in the Sleep Center for treatment of obstructive sleep apnea-hypopnea syndrome. Recently, patient had home sleep apnea test and I discussed results of the sleep study with the patient in detail. Apnea-hypopnea index is 18. Subsequently, patient was started on treatment with CPAP. Today is her first visit after she received her CPAP unit. Patient is able to use her CPAP equipment and she feels that she sleeps better with the machine. I checked CPAP unit, CPAP pressure in the range of 5-18, average pressure 13.2 cm of water, usage for the last month, /39 nights and around nights for more than 4 hours. Average usage 4.7 hours per night. Leak 14 L/minute, which is acceptable. Apnea-hypopnea index only 2.3, which is in normal range. MEDICATIONS: Eliquis, levothyroxine, flecainide, omeprazole, vitamin D, atorvastatin, metoprolol, ferrous sulfate. PHYSICAL EXAM: Patient in no distress, BP 148/83, HR 62, RR 16, weight 242, temp 98.7, oxygen saturation at room air 98%. OROPHARYNX: Extremely low soft palate, Mallampati 4. HEART: S1, S2 with some irregularities. EXTREMITIES: 1+ bilateral ankle edema. Patient walks with a walker. IMPRESSION: 1. Obstructive sleep apnea-hypopnea syndrome in moderate range by results of home sleep apnea test which may underestimate severity of problems. Patient demonstrated acceptable compliance with treatment benefitting from treatment. 2. Obesity. 3. Hypertension. 4. History of atrial flutter. 5. Hypothyroidism. 6. Acid reflux. 7. Status post left knee replacement. 8. Patient is a smoker for 30 pack years. Continues smoking. PLAN: 1. Patient should continue to use CPAP equipment every night for the whole night. I discussed the necessity with patient in details. 2. Smoking cessation programs. 3. Losing weight. 4. Precautions related to driving. Presently, patient does not drive. 5. I will maintain all necessary prescriptions for CPAP supplies including a full-face mask. Presently, patient using a Fit F20 medium-size, tube and filters. Thank you very much for allowing me to participate in the management of your patient. Sincerely, Ash Blackmon MD, PhD, FAASM Diplomat of [place] [employer] [place] [employer] Case Manager Specialist of [facility] [place] MMODL / FRANCISCAN: [id number] /
== END | disposition home or self-care (01) ==
LOC: SLEEP 10:45
PROVIDERS: ATTEND Internal Medicine
DX: G47.33 Obstructive sleep apnea (adult) (pediatric) (principal); I10 Essential (primary) hypertension; E66.9 Obesity, unspecified; E03.9 Hypothyroidism, unspecified; K21.9 Gastro-esophageal reflux disease without esophagitis; F17.210 Nicotine dependence, cigarettes, uncomplicated; Z98.890 Other specified postprocedural states; Z86.79 Personal history of other diseases of the circulatory system; Z99.89 Dependence on other enabling machines and devices

== ENCOUNTER → 2019-03-22 | Outpatient (CLI) | payer MEDICARE ==
--- NOTE | 2019-03-23 11:24 | MM ---
Reason for exam: screening (asymptomatic). Last mammogram was performed 1 year ago. History: Patient is postmenopausal and is nulliparous. Physical Findings: A clinical breast exam by your physician is recommended on an annual basis and results should be correlated with mammographic findings. MG Screening Mammo w CAD Bilateral CC and MLO view(s) were taken. Prior study comparison: March 17, 2018, bilateral MG screening mammo w CAD. April 25, 2016, mammogram, performed at [facility]. There are scattered fibroglandular densities. There is no discrete abnormality. No significant changes when compared with prior studies. ASSESSMENT: Negative, BI-RAD 1 RECOMMENDATION: Routine screening mammogram of both breasts in 1 year.
== END | disposition home or self-care (01) ==
LOC: RADMAMWWP 11:15
PROVIDERS: ATTEND Family Medicine
DX: Z12.31 Encounter for screening mammogram for malignant neoplasm of breast (principal)
CPT/HCPCS: 77067

== ENCOUNTER → 2019-11-11 | Outpatient (CLI) | payer MEDICARE ==
--- NOTE | 2019-11-11 20:18 | SFUN ---
SLEEP CENTER FOLLOW UP NOTE This patient is a 69-year-old lady who has been followed in Sleep Center for treatment of obstructive sleep apnea-hypopnea syndrome. The patient is continuing to use her CPAP equipment every night. Sometimes, according to the patient, she adjusts her mask during sleep. She likes the type of mask which she has. This is the full-face mask. [place] Sleepiness Scale today is 2, which is perfect. I checked her CPAP unit. Range of the pressure is 5 to 18, average pressure 12.4. Usage is 25/30 nights, and 6/30 nights for more than 4 hours. Average usage 3.1 hours per night. Very high leak at 106 L/minute. Apnea-hypopnea index is 11.3, but central events only 1. MEDICATIONS: Eliquis, levothyroxine, flecainide, omeprazole, vitamin D, atorvastatin, metoprolol, ferrous sulfate. PHYSICAL EXAMINATION: GENERAL: A pleasant patient in no distress. VITAL SIGNS: BP 180/73, HR 78, RR 16, height 5 feet 2 inches, weight 250, which is 8 pounds more than during her previous visit, body mass index 45.7, temperature 98.5, oxygen saturation on room air 97%. HEENT: PERRLA, EOMI. Evaluation of oropharynx showed tongue protrudes midline. Extremely low position of soft palate. Mallampati IV. NECK: Supple. No JVD. Thyroid is not palpable. LUNGS: Clear to percussion and to auscultation. Good air exchange. No wheezing or rhonchi. HEART: S1, S2 regular. No murmurs, gallops or rubs. ABDOMEN: Obese. EXTREMITIES: One plus ankle edema. OWNER CONSULTING ENGINEER: Awake, alert, and oriented X3. Cranial nerves 2 to 7 intact. There is no fasciculation or atrophy. noted. No focal deficits observed. IMPRESSION: 1. Obstructive sleep apnea-hypopnea syndrome. The patient is using CPAP equipment, benefitting from treatment. 2. Obesity. Patient's weight has increased by 8 pounds. 3. History of atrial flutter. 4. Hypertension. 5. Hypothyroidism. 6. Acid reflux. 7. Status post left knee replacement. 8. Smoking for 30 pack/years. She continues to smoke. PLAN: 1. We tried to fit the patient with a different full-face mask. 2. Patient will continue to use PAP equipment every night for the whole night. 3. Sleep hygiene with regular time in bed for at least 7-1/2 to 8 hours. 4. Precautions related to driving. No driving if feeling sleepiness. 5. I will maintain all necessary prescription for PAP supplies including mask, tube, filters. 6. Watching weight. 7. No driving if feeling sleepiness. 8. Follow-up visit in 6 months or earlier if patient has any problems. Thank you very much for allowing me to participate in the management of your patient. Sincerely, Ash Blackmon MD, PhD, FAASM Diplomat of [place] [employer] Specialties [employer] [place] [employer] Family Support Worker of [facility] [place] MMODL / IJN: [id number] /
== END | disposition home or self-care (01) ==
LOC: SLEEP 11:22
PROVIDERS: ATTEND Internal Medicine
DX: G47.33 Obstructive sleep apnea (adult) (pediatric) (principal); E66.9 Obesity, unspecified; I10 Essential (primary) hypertension; E03.9 Hypothyroidism, unspecified; K21.9 Gastro-esophageal reflux disease without esophagitis; F17.210 Nicotine dependence, cigarettes, uncomplicated; Z86.79 Personal history of other diseases of the circulatory system; Z96.652 Presence of left artificial knee joint; Z99.89 Dependence on other enabling machines and devices; Z68.42 Body mass index [BMI] 45.0-49.9, adult; Z79.01 Long term (current) use of anticoagulants; Z79.899 Other long term (current) drug therapy

== ENCOUNTER → 2020-04-26 | Outpatient (CLI) | payer MEDICARE ==
--- NOTE | 2020-05-01 09:12 | MM ---
Reason for exam: screening (asymptomatic). Last mammogram was performed 1 year and 1 month ago. History: Patient is postmenopausal and is nulliparous. Physical Findings: A clinical breast exam by your physician is recommended on an annual basis and results should be correlated with mammographic findings. MG Screening Mammo w CAD Bilateral CC and MLO view(s) were taken. Prior study comparison: March 22, 2019, bilateral MG screening mammo w CAD. March 17, 2018, bilateral MG screening mammo w CAD. April 25, 2016, mammogram, performed at [facility]. April 10, 2015, bilateral MG screening mammo w CAD. There are scattered fibroglandular densities. Subtle grouped calcifications anterior 2-3 o'clock left breast appear increased. Further magnification views recommended. ASSESSMENT: Incomplete: need additional imaging evaluation, BI-RAD 0 RECOMMENDATION: Special view mammogram of the left breast. (magnification) [facility] will attempt to contact patient to return for supplemental views.
== END | disposition home or self-care (01) ==
LOC: RADMAMWWP 11:14
PROVIDERS: ATTEND Family Medicine
DX: Z12.31 Encounter for screening mammogram for malignant neoplasm of breast (principal)
CPT/HCPCS: 77067

== ENCOUNTER → 2020-05-03 | Outpatient (CLI) | payer MEDICARE ==
--- NOTE | 2020-05-03 11:38 | MM ---
Reason for exam: additional evaluation requested from abnormal screening. Last mammogram was performed less than 1 month ago. History: Patient is postmenopausal and is nulliparous. Physical Findings: Nurse did not find any significant physical abnormalities on exam. MG 3D Work Up W/Cad LT CC with magnification, LM with magnification, and LM view(s) were taken of the left breast. Prior study comparison: April 26, 2020, bilateral MG screening mammo w CAD. March 22, 2019, bilateral MG screening mammo w CAD. Vague 6mm focal asymmetry with associated heterogeneous calcifications 3-4 o'clock left breast 2cm from the nipple. These results were verbally communicated with the patient and result sheet given to the patient on 05/03/20. ASSESSMENT: Incomplete: need additional imaging evaluation, BI-RAD 0 RECOMMENDATION: Ultrasound of the left breast.
--- NOTE | 2020-05-03 11:43 | USB ---
Reason for exam: additional evaluation requested from abnormal screening. History: Patient is postmenopausal and is nulliparous. US Breast Workup Limited LT Left limited breast ultrasound including focal area of concern, retroareolar and axilla demonstrates a 0.5 x 0.3 x 0.3cm lesion too small to characterize at 4 o'clock. This may correspond to the mammographic finding. 6 months follow up recommended. Scanned 3-6 o'clock. These results were verbally communicated with the patient and result sheet given to the patient on 05/03/20. ASSESSMENT: Probably benign, BI-RAD 3 RECOMMENDATION: Follow-up diagnostic mammogram and ultrasound of the left breast in 6 months.
== END | disposition home or self-care (01) ==
LOC: RADMAMWWP 09:29
PROVIDERS: ATTEND Family Medicine
DX: R92.8 Other abnormal and inconclusive findings on diagnostic imaging of breast (principal)
CPT/HCPCS: 77065; 76642; G0279; 77061

== ENCOUNTER → 2020-05-25 | Outpatient (CLI) | payer MEDICARE ==
--- NOTE | 2020-05-25 16:35 | SFUN ---
SLEEP CENTER FOLLOW UP NOTE DATE OF SERVICE: 05/25/2020 This 69-year-old lady has been followed in Sleep Center for treatment of obstructive sleep apnea-hypopnea syndrome. Patient has been trying to use CPAP equipment, but she has problems with the mask. She indicated that she has a significant leak. She is using a full-face mask. She tried different styles of masks before, but she did not like them. She likes the mask that she has, but again there is a significant leak. I checked her CPAP unit. Range of the pressure 5-18, average pressure 10.4. Usage is 04/03 nights and 06/03 nights for more than 4 hours. Average usage 2 hours. Leak is extremely high at 100 L/minute. Apnea-hypopnea index is high at 26.7. This is higher than during her previous visit. MEDICATIONS: 1. Eliquis 5 mg twice a day. 2. Levothyroxine once a day. 3. Flecainide 50 mg twice a day. 4. Omeprazole 20 mg once a day. 5. Atorvastatin 20 mg once a day. 6. Lopressor 25 mg twice a day. 7. Ferrous sulfate 25 mg once a day. 8. Lisinopril 5 mg once a day. PHYSICAL EXAMINATION: GENERAL: A pleasant patient in no distress. VITAL SIGNS: BP 140/74, HR 72, RR 15, height 5 feet 2-3/4 inches, weight 245.2, temperature 97.6, oxygen saturation at room air 98%. BMI 43.8. HEENT: PERRLA, EOMI. Evaluation of oropharynx showed tongue protrudes midline. Extremely low position of soft palate. Mallampati IV. NECK: Supple. No JVD. Thyroid is not palpable. Neck measures 17-1/2 inches in circumference. LUNGS: Clear to percussion and to auscultation. Good air exchange. No wheezing or rhonchi. HEART: S1, S2 regular. No murmurs, gallops or rubs. ABDOMEN: Soft and nontender. Bowel sounds are present. No organomegaly appreciated. EXTREMITIES: No clubbing or cyanosis. LOG MANAGER: Awake, alert, and oriented X3. Cranial nerves 2 to 7 intact. There is no fasciculation or atrophy. noted. No focal deficits observed. IMPRESSION: 1. Obstructive sleep apnea-hypopnea syndrome. The patient still continues to have some problems with the CPAP mask. 2. Obesity. 3. History of atrial flutter. 4. Hypertension. 5. Hypothyroidism. 6. Acid reflux. 7. Status post left knee replacement. 8. Patient continues to smoke. PLAN: 1. We checked fitting of her Simplus medium-sized full-face mask. We tried using a different size, possibly a small Simplus full-face mask. Again, previously the patient tried other, different masks, and she did not like them. 2. Smoking cessation program. 3. Patient will continue to use PAP equipment every night for the whole night. 4. Sleep hygiene with regular time in bed for at least 7-1/2 to 8 hours. 5. Precautions related to driving. No driving if feeling sleepiness. 6. I will maintain all necessary prescription for PAP supplies including mask, tube, filters. 7. Watching weight. 8. No driving if feeling sleepiness. 9. Follow-up visit in 6 months or earlier if patient has any problems. Thank you very much for allowing me to participate in the management of your patient. Sincerely, Ash Blackmon MD, PhD, FAASM Diplomat of [place] [employer] [place] [employer] Web Developer of [facility] [place] MMODL / IJN: [id number] /
== END | disposition home or self-care (01) ==
LOC: SLEEP 10:35
PROVIDERS: ATTEND Internal Medicine
DX: G47.33 Obstructive sleep apnea (adult) (pediatric) (principal); E66.9 Obesity, unspecified; I10 Essential (primary) hypertension; E03.9 Hypothyroidism, unspecified; F17.200 Nicotine dependence, unspecified, uncomplicated; K21.9 Gastro-esophageal reflux disease without esophagitis; Z96.652 Presence of left artificial knee joint; Z99.89 Dependence on other enabling machines and devices; Z79.01 Long term (current) use of anticoagulants; Z79.891 Long term (current) use of opiate analgesic; Z79.899 Other long term (current) drug therapy; Z79.890 Hormone replacement therapy; Z86.79 Personal history of other diseases of the circulatory system

== ENCOUNTER → 2020-10-31 | Outpatient (CLI) | payer MEDICARE ==
--- NOTE | 2020-10-31 11:22 | MM ---
Reason for exam: follow-up at short interval from prior study. Last mammogram was performed 6 months ago. History: Patient is postmenopausal and is nulliparous. Physical Findings: Nurse did not find any significant physical abnormalities on exam. MG 3D Diag Mammo W/Cad LT CC and MLO view(s) were taken of the left breast. Prior study comparison: May 03, 2020, left breast MG 3d work up w/cad LT. April 26, 2020, bilateral MG screening mammo w CAD. There are scattered fibroglandular densities. 4mm stable nodule with puctate calcification at 4 o'clock, zone A. Ultrasound recommended. No significant new findings when compared with previous films. These results were verbally communicated with the patient and result sheet given to the patient on 10/31/20. ASSESSMENT: Incomplete: need additional imaging evaluation, BI-RAD 0 RECOMMENDATION: Ultrasound of the left breast.
--- NOTE | 2020-10-31 11:24 | USB ---
Reason for exam: additional evaluation requested from abnormal screening. History: Patient is postmenopausal and is nulliparous. US Breast Limited LT Technologist: Ana Obrien Left limited breast ultrasound including focal area of concern, retroareolar and axilla demonstrates a 0.6 x 0.5 x 0.4cm oval lymph node at 3 o'clock and a 4mm fibrocystic or mildly dilated duct with tiny calcifications at 4 o'clock, stable. Most likely corresponds to mammographic nodule, probably benign. 6 month follow up recommended. These results were verbally communicated with the patient and result sheet given to the patient on 10/31/20. ASSESSMENT: Probably benign, BI-RAD 3 RECOMMENDATION: Follow-up diagnostic mammogram of both breasts in 6 months. Ultrasound of the left breast in 6 months.
== END | disposition home or self-care (01) ==
LOC: RADMAMWWP 09:24
PROVIDERS: ATTEND Family Medicine
DX: R92.8 Other abnormal and inconclusive findings on diagnostic imaging of breast (principal)
CPT/HCPCS: 77065; 76642; G0279; 77061

== ENCOUNTER → 2021-05-16 | Outpatient (CLI) | payer MEDICARE ==
--- NOTE | 2021-05-16 11:29 | CTL ---
EXAMINATION TYPE: CT Low Dose Lung DATE OF EXAM ORDERED: 05/16/2021 HISTORY: . Lung cancer screening CT DLP: 121.[address] CTDI: 4.3 mGy Automated exposure control for dose reduction was used. SCREENING VISIT: COMPARISON: None TECHNIQUE: Low dose computed tomography scan was performed through the chest at 1 mm thick sections a nd reconstructed images in multiple planes at 1 mm and [address] DIAGNOSTIC QUALITY: Satisfactory FINDINGS: Atherosclerotic change of the aorta and coronary arteries. Heart size is at the upper limits of [place]. Mild pericardial lipomatosis. Hypertrophic and degenerative changes of the spine. Shotty adenopathy in the mediastinum and hilum. S tructures of the upper abdomen demonstrate no abnormality. There is interlobular septal thickening suggestive of chronic interstitial pulmonary lung disease. No pneumothorax. No pleural thickening or calcifications. There is a 1 mm subpleural nodule left upper lobe axial image 66. There is a calcified nodule in the right upper lobe compatible with granuloma. Mild emphysematous changes. IMPRESSION: 1. Mild chronic interstitial lung disease correlate for mild pulmonary fibrosis. 2. There is a 1 mm nodule left upper lobe subpleural and a calcified nodule measuring 2 mm right uppe r lobe. 3. Mild COPD. 4. Coronary artery calcification CT LUNG RAD AND CT CHEST RECOMMENDATION: Lung-Rad 2 Benign Appearance or Behavior: Continue annual sc reening with LDCT in 12 months.
--- NOTE | 2021-05-17 12:58 | MM ---
Reason for exam: additional evaluation requested from prior study. Last mammogram was performed 6 months ago. History: Patient is postmenopausal and is nulliparous. Physical Findings: Nurse did not find any significant physical abnormalities on exam. MG Diagnostic Mammo w CAD DAYAMI Bilateral CC and MLO view(s) were taken. Prior study comparison: October 31, 2020, left breast MG 3d diag mammo w/cad LT. May 03, 2020, left breast MG 3d work up w/cad LT. April 26, 2020, bilateral MG screening mammo w CAD. March 22, 2019, bilateral MG screening mammo w CAD. There are scattered fibroglandular densities. There are few calcifications. There is tiny chronic nodularity in the left breast. There is no discrete abnormality. These results were verbally communicated with the patient and result sheet given to the patient on 05/16/21. ASSESSMENT: Benign, BI-RAD 2 RECOMMENDATION: Routine screening mammogram of both breasts in 1 year.
--- NOTE | 2021-05-17 12:59 | USB ---
Reason for exam: follow-up at short interval from prior study. History: Patient is postmenopausal and is nulliparous. US Breast Workup Limited LT Left limited breast ultrasound including focal area of concern, retroareolar and axilla demonstrates no cystic or solid lesion seen. These results were verbally communicated with the patient and result sheet given to the patient on 05/16/21. ASSESSMENT: Negative, BI-RAD 1 RECOMMENDATION: Routine screening mammogram of both breasts in 1 year.
== END | disposition home or self-care (01) ==
LOC: RADMAMWWP 09:24
PROVIDERS: ATTEND Family Medicine
DX: Z12.2 Encounter for screening for malignant neoplasm of respiratory organs (principal); R92.8 Other abnormal and inconclusive findings on diagnostic imaging of breast; J84.9 Interstitial pulmonary disease, unspecified; R91.1 Solitary pulmonary nodule; J44.9 Chronic obstructive pulmonary disease, unspecified; I25.10 Atherosclerotic heart disease of native coronary artery without angina pectoris; F17.210 Nicotine dependence, cigarettes, uncomplicated
CPT/HCPCS: 71271; 77066

== ENCOUNTER 2021-07-18 11:39 | Inpatient (IN) | payer MEDICARE ==
[2021-07-18] MEDS ORDERED: SODIUM CHLORIDE 0.9% 500 ML 500 ML IV STA (12:33)
[2021-07-18] MEDS ORDERED: SODIUM CHLORIDE 0.9% 1,000 ML IV STA (12:33)
--- NOTE | 2021-07-18 12:44 | ED ---
Abdominal Pain HPI - General Chief Complaint: Abdominal Pain Stated Complaint: epigastric pain, vomiting Time Seen by Provider: 07/18/21 12:32 Source: patient, family, RN notes reviewed Mode of arrival: wheelchair Limitations: no limitations - History of Present Illness Initial Comments: This a 70-year-old female sent emergency Department chief complaint of epigastric pain. Patient states that she had pain this morning she of episode of vomiting states that she is on cold flashes. Complains of no chest pain shortness of breath fevers or chills time. Patient states she actually feels much better and has no specific complaints on dysuria no hematuria patient did have low diarrhea nothing concern to the patient denies any melena or hematochezia. Patient offers no other associated symptoms. - Related Data Home Medications Medication Instructions Recorded Confirmed Apixaban [Eliquis] 5 mg PO BID 10/24/16 07/18/21 Flecainide Acetate 50 mg PO BID 10/24/16 07/18/21 Metoprolol Tartrate 25 mg PO BID 10/24/16 07/18/21 Omeprazole 20 mg PO DAILY 10/24/16 07/18/21 Ferrous Sulfate [Iron] 325 mg PO HS 10/02/17 07/18/21 Atorvastatin [Lipitor] 20 mg PO HS 07/18/21 07/18/21 Cholecalciferol [Vitamin D3 (25 50 mcg PO DAILY 07/18/21 07/18/21 Mcg = 1000 Iu)] Denosumab [Prolia] 60 mg SQ Q180D 07/18/21 07/18/21 Levothyroxine Sodium [Levoxyl] 100 mcg PO COLLINS 07/18/21 07/18/21 Levothyroxine Sodium [Synthroid] 125 mcg PO MOTUWETHFRSA 07/18/21 07/18/21 lisinopriL [Zestril] 5 mg PO HS 07/18/21 07/18/21 Allergies Allergy/AdvReac Type Severity Reaction Status Date / Time No Known Allergies Allergy Verified 07/18/21 13:34 Review of Systems ROS Statement: Those systems with pertinent positive or pertinent negative responses have been documented in the HPI. ROS Other: All systems not noted in ROS Statement are negative. Past Medical History Past Medical History: Atrial Fibrillation, GERD/Reflux, Hyperlipidemia, Osteoarthritis (OA), Thyroid Disorder Additional Past Medical History / Comment(s): See Dr Arevalo's H&P. Radiation for thyroid, hx fx of rt hip 10/19 uses walker. 10/09/17 EPS with ablation for a-flutter History of Any Multi-Drug Resistant Organisms: None Reported Past Surgical History: Adenoidectomy, Joint Replacement, Tonsillectomy Additional Past Surgical History / Comment(s): LT TKA, repair rt hip fx with plates and screws. COLONOSCOPY. 10/09/17 EPS with ablation for a-flutter Past Anesthesia/Blood Transfusion Reactions: No Reported Reaction Past Psychological History: No Psychological Hx Reported Smoking Status: Never smoker Past Alcohol Use History: None Reported Past Drug Use History: None Reported - Past Family History Father Family Medical History: Myocardial Infarction ([place]) Brother(s) Family Medical History: No Reported History Mother Family Medical History: Coronary Artery Disease (CAD) General Exam Limitations: no limitations General appearance: alert, in no apparent distress Head exam: Present: atraumatic, normocephalic, normal inspection Eye exam: Present: normal appearance, PERRL, EOMI. Absent: scleral icterus, conjunctival injection, periorbital swelling ENT exam: Present: normal exam, mucous membranes moist Neck exam: Present: normal inspection, full ROM. Absent: tenderness, meningism us, lymphadenopathy Respiratory exam: Present: normal lung sounds bilaterally. Absent: respiratory distress, wheezes, rales, rhonchi, stridor Cardiovascular Exam: Present: regular rate, normal rhythm, normal heart sounds. Absent: systolic murmur, diastolic murmur, rubs, gallop, clicks GI/Abdominal exam: Present: soft, normal bowel sounds. Absent: distended, tenderness, guarding, rebound, rigid Back exam: Absent: CVA tenderness (R), CVA tenderness (L) Neurological exam: Present: alert, oriented X3 Skin exam: Present: warm, dry, intact, normal color. Absent: rash Course Vital Signs 07/18/21 12:18 Temperature 97.1 F L Pulse Rate 69 Respiratory 16 Rate Blood Pressure 87/55 O2 Sat by Pulse 97 Oximetry Medical Decision Making - Medical Decision Making 70-year-old female presented for abdominal pain. Patient has cholelithiasis with elevated bilirubin at 3.3, transaminitis. Patient be admitted to medicine consult surgery and GI - Lab Data Result diagrams: 07/18/21 12:55 07/18/21 12:55 Lab Results 07/18/21 07/18/21 07/18/21 Range/Units 12:55 12:55 12:55 WBC 17.8 H (3.8-10.6) k/uL RBC 4.22 (3.80-5.40) m/uL Hgb 14.1 (11.4-16.0) gm/dL Hct 42.1 (34.0-46.0) % MCV 99.7 (80.0-100.0) fL MCH 33.5 (25.0-35.0) pg MCHC 33.6 (31.0-37.0) g/dL RDW 13.2 (11.5-15.5) % Plt Count 336 (150-450) k/uL MPV 8.1 Neutrophils % 92 % Lymphocytes % 2 % Monocytes % 5 % Eosinophils % 1 % Basophils % 0 % Neutrophils # 16.4 H (1.3-7.7) k/uL Lymphocytes # 0.4 L (1.0-4.8) k/uL Monocytes # 0.8 (0-1.0) k/uL Eosinophils # 0.1 (0-0.7) k/uL Basophils # 0.0 (0-0.2) k/uL Sodium 135 L (137-145) mmol/L Potassium 4.1 (3.5-5.1) mmol/L Chloride 105 (98-107) mmol/L Carbon Dioxide 22 (22-30) mmol/L Anion Gap 8 mmol/L BUN 17 (7-17) mg/dL Creatinine 0.79 (0.52-1.04) mg/dL Est GFR (CKD-EPI)AfAm 89 (>60 ml/min/1.73 sqM) Est GFR (CKD-EPI)NonAf 77 (>60 ml/min/1.73 sqM) Glucose 131 H (74-99) mg/dL Plasma Lactic Acid Franko 1.2 (0.7-2.0) mmol/L Calcium 8.6 (8.4-10.2) mg/dL Total Bilirubin 3.3 H (0.2-1.3) mg/dL AST 604 H (14-36) U/L ALT 481 H (4-34) U/L Alkaline Phosphatase 157 H (38-126) U/L Troponin I (0.000-0.034) ng/mL Total Protein 6.9 (6.3-8.2) g/dL Albumin 3.7 (3.5-5.0) g/dL Amylase 35 (30-110) U/L Lipase 33 (23-300) U/L 07/18/21 Range/Units 12:55 WBC (3.8-10.6) k/uL RBC (3.80-5.40) m/uL Hgb (11.4-16.0) gm/dL Hct (34.0-46.0) % MCV (80.0-100.0) fL MCH (25.0-35.0) pg MCHC (31.0-37.0) g/dL RDW (11.5-15.5) % Plt Count (150-450) k/uL MPV Neutrophils % % Lymphocytes % % Monocytes % % Eosinophils % % Basophils % % Neutrophils # (1.3-7.7) k/uL Lymphocytes # (1.0-4.8) k/uL Monocytes # (0-1.0) k/uL Eosinophils # (0-0.7) k/uL Basophils # (0-0.2) k/uL Sodium (137-145) mmol/L Potassium (3.5-5.1) mmol/L Chloride (98-107) mmol/L Carbon Dioxide (22-30) mmol/L Anion Gap mmol/L BUN (7-17) mg/dL Creatinine (0.52-1.04) mg/dL Est GFR (CKD-EPI)AfAm (>60 ml/min/1.73 sqM) Est GFR (CKD-EPI)NonAf (>60 ml/min/1.73 sqM) Glucose (74-99) mg/dL Plasma Lactic Acid Franko (0.7-2.0) mmol/L Calcium (8.4-10.2) mg/dL Total Bilirubin (0.2-1.3) mg/dL AST (14-36) U/L ALT (4-34) U/L Alkaline Phosphatase (38-126) U/L Troponin I <0.012 (0.000-0.034) ng/mL Total Protein (6.3-8.2) g/dL Albumin (3.5-5.0) g/dL Amylase (30-110) U/L Lipase (23-300) U/L Disposition Clinical Impression: Cholelithiasis, Transaminitis, Hyperbilirubinemia Disposition: ADMITTED IP TO THIS HOSP Condition: Fair Referrals: Amish Jc MD [Primary Care Provider] - 1-2 days
[2021-07-18 13:16] LABS: Basophils % (A) 0 %; Eosinophils # (A) 0.1 k/uL (0-0.7); Eosinophils % (A) 1 %; HCT 42.1 % (34.0-46.0); HGB 14.1 gm/dL (11.4-16.0); Lymphocytes # (A) 0.4 k/uL (1.0-4.8); Lymphocytes % (A) 2 %; MCH 33.5 pg (25.0-35.0); MCHC 33.6 g/dL (31.0-37.0); MCV 99.7 fL (80.0-100.0); Mean Platelet Volume 8.1; Monocytes # (A) 0.8 k/uL (0-1.0); Monocytes % (A) 5 %; Neutrophils # (A) 16.4 k/uL (1.3-7.7); Neutrophils % (A) 92 %; Platelet Count 336 k/uL (150-450); RBC 4.22 m/uL (3.80-5.40); RDW 13.2 % (11.5-15.5); WBC 17.8 k/uL (3.8-10.6)
[2021-07-18 13:34] LABS: Albumin 3.7 g/dL (3.5-5.0); Calcium 8.6 mg/dL (8.4-10.2); Potassium 4.1 mmol/L (3.5-5.1); Total Bilirubin 3.3 mg/dL (0.2-1.3); Total Protein 6.9 g/dL (6.3-8.2)
--- NOTE | 2021-07-18 13:34 | XR ---
EXAMINATION TYPE: XR chest 2V DATE OF EXAM: 07/18/2021 COMPARISON: 10/24/16 HISTORY: Shortness of breath TECHNIQUE: Frontal and lateral views of the chest are obtained. FINDINGS: Scattered senescent parenchymal changes noted. No evidence for infiltrate. No evidence for atelectasis. Heart size is stable. Mediastinal structures are stable and grossly unremarkable. No evidence for hilar prominence. Degenerative changes dorsal spine. IMPRESSION: 1. No evidence for acute pulmonary disease.
--- NOTE | 2021-07-18 14:41 | US ---
EXAMINATION TYPE: US gallbladder DATE OF EXAM: 07/18/2021 COMPARISON: NONE CLINICAL HISTORY: pain. epigastric pain, large body habitus EXAM MEASUREMENTS: Liver Length: 15.5 cm Gallbladder Wall: 0.3 cm CBD: 0.5 cm Right Kidney: 11.8 x 6.2 x 6.2 cm Pancreas: not seen due to habitus and bowel gas Liver: intercostal imaging due to bowel gas, difficult to penetrate Gallbladder: tiny stones seen near GB Evidence for sonographic Michel's sign: no CBD: wnl Right Kidney: 5.6 x 4.2 x 4.3cm mid pole cyst IMPRESSION: Uncomplicated cholelithiasis.
[2021-07-18] MEDS ORDERED: PIPERACILLIN-TAZOBACTAM 3.375 GM in SODIUM CHLORIDE 0.9% 100 ML IVPB STA (14:55)
[2021-07-18] MEDS ORDERED: ONDANSETRON 4 MG/2 ML VIAL IVP PRN (14:57)
[2021-07-18] MEDS ORDERED: NALOXONE 0.4 MG/ML 1 ML VIAL IV PRN ×2 (14:57→14:59)
[2021-07-18] MEDS ORDERED: HYDROmorphone 0.5 MG/0.5 ML SYRINGE IVP PRN (14:57)
[2021-07-18] MEDS ORDERED: ACETAMINOPHEN TAB 325 MG TAB PO PRN (14:57)
[2021-07-18] MEDS: SODIUM CHLORIDE 0.9% 1,000 ML IV SCH (16:11)
[2021-07-18 16:26] LABS: Amorphous Sediment,Urine Rare /hpf; Appearance,Urine Cloudy (Clear); Bacteria,Urine Moderate /hpf; Bilirubin,Urine Negative (Negative); Blood,Urine Small (Negative); Color,Urine Yellow; Glucose,Urine (UA) Negative (Negative); Ketones,Urine Negative (Negative); Leukocyte Esterase,Urine Negative (Negative); Mucus,Urine Rare /hpf; Nitrite,Urine Negative (Negative); PH, Urine 6.5 (5.0-8.0); Protein,Urine Negative (Negative); RBC,Urine 8 /hpf (0-5); Specific Gravity,Urine 1.004 (1.001-1.035); Squamous Epithelial Cell,Urine 1 /hpf (0-4); WBC,Urine 6 /hpf (0-5)
[2021-07-18] MEDS: LEVOTHYROXINE 125 MCG TAB PO SCH (20:33)
[2021-07-18] MEDS: METOPROLOL TARTRATE 25 MG TAB PO SCH (20:47)
[2021-07-18] MEDS: FLECAINIDE 50 MG TAB PO SCH (20:47)
[2021-07-18] MEDS: ATORVASTATIN 20 MG TAB PO SCH (20:47)
[2021-07-18] MEDS: FERROUS SULFATE 325 MG TAB PO SCH (20:47)
--- NOTE | 2021-07-18 22:00 | P.HPIM ---
History of Present Illness H&P Date: 07/18/21 Chief Complaint: Abdominal pain Patient is a 70-year-old female with a known history of atrial fibrillation with history of ablation, hyperlipidemia, GERD, osteoarthritis, hypothyroidism with history of radiation for thyroid and ongoing nicotine addiction presents to ER with complaints of abdominal pain. Patient states that for the past couple of days patient has been having abdominal pain mainly is in the epigastric region associated with some nausea and episode of vomiting. Patient also felt cold and clammy. Otherwise denies any fever. Denies any complaints of right upper quadrant pain. No recent illnesses. No hematemesis or melena. No cough or sputum production. No chest pain or shortness of breath. On admission blood pressure was 87/55 pulse 69 respirations 16 and pulse ox 97% on room air. Chest x-ray showed no evidence for acute pulmonary disease. Gallbladder ultrasound showed uncomplicated cholelithiasis. Common bile duct within normal limits. EKG showed sinus rhythm. Laboratory data showed WBC 17.8 hemoglobin 14.1 and platelets 336 sodium 135 potassium 4.1 chloride 105 bicarb is 22 BUN 17 and creatinine 0.79 total bilirubin level is 3.3 AST 604 ALT 41 and alk phos 157 and troponin x192 Urinalysis is cloudy with small blood and nitrite negative and leukocyte esterase negative. Review of Systems Constitutional: Patient denies any fever or chills . No generalized weakness or weight loss. Abdomen: Patient denied nausea vomiting and diarrhea and abdominal pain. Cardiovascular: Patient denies any chest pain or short of breath no palpitations. Respiratory: patient denied any cough or sputum production. No shortness of breath Neurologic: Patient denied any numbness or tingling headache. Musculoskeletal: Patient denies any complaints of joint swelling or deformity. Skin: Negative Psychiatric: Negative Endocrine: No heat or cold intolerance. No recent weight gain. Genitourinary: No dysuria or hematuria. All other 14 point ROS negative except the above Past Medical History Past Medical History: Atrial Fibrillation, GERD/Reflux, Hyperlipidemia, Osteoarthritis (OA), Thyroid Disorder Additional Past Medical History / Comment(s): See Dr Arevalo's H&P. Radiation for thyroid, hx fx of rt hip 10/19 uses walker. 10/09/17 EPS with ablation for a-flutter History of Any Multi-Drug Resistant Organisms: None Reported Past Surgical History: Adenoidectomy, Joint Replacement, Tonsillectomy Additional Past Surgical History / Comment(s): LT TKA, repair rt hip fx with plates and screws. COLONOSCOPY. 10/09/17 EPS with ablation for a-flutter Past Anesthesia/Blood Transfusion Reactions: No Reported Reaction Past Psychological History: No Psychological Hx Reported Smoking Status: Current every day smoker Past Alcohol Use History: None Reported Additional Past Alcohol Use History / Comment(s): smoker for 20 years 1/2ppd Past Drug Use History: None Reported - Past Family History Father Family Medical History: Myocardial Infarction ([place]) Brother(s) Family Medical History: No Reported History Mother Family Medical History: Coronary Artery Disease (CAD) Medications and Allergies Home Medications Medication Instructions Recorded Confirmed Type Apixaban [Eliquis] 5 mg PO BID 10/24/16 07/18/21 History Flecainide Acetate 50 mg PO BID 10/24/16 07/18/21 History Metoprolol Tartrate 25 mg PO BID 10/24/16 07/18/21 History Omeprazole 20 mg PO DAILY 10/24/16 07/18/21 History Ferrous Sulfate [Iron] 325 mg PO HS 10/02/17 07/18/21 History Atorvastatin [Lipitor] 20 mg PO HS 07/18/21 07/18/21 History Cholecalciferol [Vitamin D3 (25 50 mcg PO DAILY 07/18/21 07/18/21 History Mcg = 1000 Iu)] Denosumab [Prolia] 60 mg SQ Q180D 07/18/21 07/18/21 History Levothyroxine Sodium [Levoxyl] 100 mcg PO COLLINS 07/18/21 07/18/21 History Levothyroxine Sodium [Synthroid] 125 mcg PO MOTUWETHFRSA 07/18/21 07/18/21 History lisinopriL [Zestril] 5 mg PO HS 07/18/21 07/18/21 History Allergies Allergy/AdvReac Type Severity Reaction Status Date / Time No Known Allergies Allergy Verified 07/18/21 13:34 Physical Exam Vitals: Vital Signs Temp Pulse Pulse Resp BP BP Pulse Ox 07/18/21 20:00 98.7 F 73 16 110/58 97 07/18/21 16:06 98.7 F 67 18 116/62 97 07/18/21 12:18 97.1 F L 69 16 87/55 97 Intake and Output 07/18/21 07/18/21 07/18/21 06:59 14:59 22:59 Intake Total 490 Balance 490 Intake: IV 250 Piperacillin-Tazobactam 3 100 .375 gm In Sodium Chloride 0.9% 100 ml @ 200 mls/hr IVPB ONCE STA Rx#:[id number] Sodium Chloride 0.9% 1, 150 000 ml @ 75 mls/hr IV . [id number] [facility] Rx#:[id number] Oral 240 Other: Voiding Method Toilet Weight 108.862 kg 108.862 kg PHYSICAL EXAMINATION: Patient is lying in the bed comfortably, no acute distress, awake alert and oriented.. HEENT: Normocephalic. Neck is supple. Pupils reactive. Nostrils clear. Oral cavity is moist. Neck reveals no JVD, carotid bruits, or thyromegaly. CHEST EXAMINATION: Trachea is central. Symmetrical expansion. Lung bynum clear to auscultation and percussion. CARDIAC: Normal S1, S2 with no gallops. No murmurs ABDOMEN: Soft. Bowel sounds normal. No organomegaly. No abdominal bruits. Extremities: reveal no edema. No clubbing or cyanosis Neurologically awake, alert, oriented x3 with well-coordinated movements. No focal deficits noted Skin: No rash or skin lesions. Psychiatric: Cooperative. Nonsuicidal Musculoskeletal: No joint swelling or deformity. Normal range of motion. Results CBC & Chem 7: 07/19/21 03:45 07/19/21 03:45 Labs: Abnormal Lab Results - Last 24 Hours (Table) 07/18/21 07/18/21 07/18/21 Range/Units 12:55 12:55 15:54 WBC 17.8 H (3.8-10.6) k/uL Neutrophils # 16.4 H (1.3-7.7) k/uL Lymphocytes # 0.4 L (1.0-4.8) k/uL Sodium 135 L (137-145) mmol/L Glucose 131 H (74-99) mg/dL Total Bilirubin 3.3 H (0.2-1.3) mg/dL AST 604 H (14-36) U/L ALT 481 H (4-34) U/L Alkaline Phosphatase 157 H (38-126) U/L Urine Appearance Cloudy H (Clear) Urine Blood Small H (Negative) Urine RBC 8 H (0-5) /hpf Urine WBC 6 H (0-5) /hpf Amorphous Sediment Rare H (None) /hpf Urine Bacteria Moderate H (None) /hpf Urine Mucus Rare H (None) /hpf Thrombosis Risk Factor Assmnt - DVT/VTE Prophylaxis DVT/VTE Prophylaxis: Pharmacologic Prophylaxis ordered - Choose All That Apply Any of the Below Risk Factors Present?: Yes Each Factor Represents 1 point: Obesity (BMI >25) Other Risk Factors: Yes Each Risk Factor Represents 2 Points: Age 61-74 years Other congenital or acquired thrombophilia - If yes, enter type in comment: No Thrombosis Risk Factor Assessment Total Risk Factor Score: 3 Thrombosis Risk Factor Assessment Level: Moderate Risk Assessment and Plan Assessment: Abdominal pain with transaminitis and elevated bilirubin level with possible choledocholithiasis. Cholelithiasis as per ultrasound abdomen. CBD within normal limit Paroxysmal atrial fibrillation with history of ablation. Currently on anticoagulation with Eliquis and flecainide Hyperlipidemia GERD Hypothyroidism History of radiation to thyroid Morbid obesity BMI 41.2 Currently everyday smoker DVT prophylaxis with heparin subcu Plan: Patient will be continued on IV hydration. Blood pressure did improve with fluid bolus in the ER. Continue with empiric antibiotics in the form of Zosyn due to leukocytosis and hypotension on admission. Follow-up CMP tomorrow. Currently patient Denied any complaints of pain. Continue with symptomatic management and follow-up closely. Gastroenterology is following. Eliquis is on hold due to possible surgical procedure. Smoking cessation has been counseled. Time with Patient: Greater than 30
[2021-07-18] MEDS: PIPERACILLIN-TAZOBACTAM 3.375 GM in SODIUM CHLORIDE 0.9% 100 ML IVPB SCH (23:16)
[2021-07-18] MEDS: HEPARIN SODIUM,PORCINE/PF 5,000 UNIT/0.5 ML SYRINGE SQ SCH (23:16)
[2021-07-19] MEDS: SODIUM CHLORIDE 0.9% 1,000 ML IV SCH ×2 (05:38→15:40)
[2021-07-19] MEDS: LEVOTHYROXINE 125 MCG TAB PO SCH (05:38)
[2021-07-19] MEDS: METOPROLOL TARTRATE 25 MG TAB PO SCH ×2 (08:49→20:28)
[2021-07-19] MEDS: FLECAINIDE 50 MG TAB PO SCH ×2 (08:49→20:28)
[2021-07-19] MEDS: HEPARIN SODIUM,PORCINE/PF 5,000 UNIT/0.5 ML SYRINGE SQ SCH ×3 (08:49→20:28)
[2021-07-19] MEDS: PANTOPRAZOLE 40 MG TABLET PO SCH (08:49)
[2021-07-19] MEDS: CHOLECALCIFEROL 25 MCG (1000 IU) TABLET PO SCH (08:49)
[2021-07-19] MEDS: PIPERACILLIN-TAZOBACTAM 3.375 GM in SODIUM CHLORIDE 0.9% 100 ML IVPB SCH ×3 (08:49→23:43)
[2021-07-19 08:58] LABS: Basophils # (A) 0.03 X 10*3/uL (0.00-0.10); Basophils % (A) 0.3 %; HGB 11.9 g/dL (12.0-15.0); Immature Grans, Automated 0.4 %; MCHC 32.2 g/dL (32.0-37.0); MCV 99.5 fL (80.0-97.0); Mean Platelet Volume 11.3 fL (9.5-12.2); Monocytes # (A) 0.92 X 10*3/uL (0.20-1.00); Monocytes % (A) 9.2 %; NRBC Per 100 WBC 0 /100 WBCS (0.0-0.0); Neutrophils # (A) 7.97 X 10*3/uL (1.80-7.70); Neutrophils % (A) 80.1 %; Platelet Count 283 X 10*3/uL (140-440); RBC 3.72 X 10*6/uL (4.10-5.20); RDW 14.5 % (11.5-14.5); WBC 9.96 X 10*3/uL (4.50-10.00)
[2021-07-19 09:12] LABS: African American GFR (CKD) 86.6 (60.0-200.0); Albumin 3.4 g/dL (3.8-4.9); Albumin/Globulin Ratio 1.62 (1.60-3.17); Anion Gap 10.4 mmol/L (10.00-18.00); BUN/Creat Ratio 14.88 Ratio (12.00-20.00); Blood Urea Nitrogen 11.9 mg/dL (9.0-27.0); Calcium 7.9 mg/dL (8.7-10.3); Carbon Dioxide 18.6 mmol/L (20.0-27.5); Globulin 2.1 g/dL (1.6-3.3); Non-African American GFR(CKD) 74.7 (60.0-200.0); Potassium 3.9 mmol/L (3.5-5.5); Total Bilirubin 3.5 mg/dL (0.30-1.20); Total Protein 5.5 g/dL (6.2-8.2)
--- NOTE | 2021-07-19 12:38 | P.GSCN ---
History of Present Illness Consult date: 07/19/21 History of present illness: CHIEF COMPLAINT: Epigastric abdominal pain HISTORY OF PRESENT ILLNESS: This is a 70-year-old female who presented to the hospital with complaints of epigastric abdominal pain 2 days. She did have an episode of vomiting. She does report feeling hot and cold at times. She took Tylenol to help with the pain. Patient reports today her pain is gone. She denies any right upper quadrant pain. No prior history of gallstones. She does have a history of atrial fibrillation and is on request. Last dose of this was on 07/18/2021. Abdominal ultrasound shows uncomplicated cholelithiasis. Patient also followed by GI service. She is scheduled for MRCP today. Her total bilirubin remains elevated at 3.5 LFTs are trending downwards. PAST MEDICAL HISTORY: See list. PAST SURGICAL HISTORY: See list. MEDICATIONS: See list. ALLERGIES: See list. SOCIAL HISTORY: No illicit drug use. REVIEW OF SYSTEMS: CONSTITUTIONAL: Denies fever or chills. HEENT: Denies blurred vision, vision changes, or eye pain. Denies hemoptysis ENDOCRINE: Denies heat or cold intolerance. CARDIOVASCULAR: Denies chest pain or pressure. RESPIRATORY: No shortness of breath. GASTROINTESTINAL: Please refer to HPI NEURO: Denies history of seizures. PSYCH: No depression or suicidal ideation HEMATOLOGIC: Denies bleeding disorders. LYMPHATIC: The patient denies any lumps and bumps around the neck. GENITOURINARY: Denies any blood in urine or increased urinary frequency. MUSCULOSKELETAL: Denies myalgias. Denies joint swelling. Denies decreased range of motion beyond patients baseline. SKIN: Denies pruitis. Denies rash. PHYSICAL EXAM: VITAL SIGNS: Reviewed GENERAL: Well-developed in no acute distress. HEENT: No sclera icterus. Extraocular movements grossly intact. Moist buccal mucosa. Head is atraumatic, normocephalic. Hears conversational speech. No nasal drainage. NECK: Supple without lymphadenopathy. CHEST: Non-labored respirations and equal bilateral excursions. CARDIOVASCULAR: Palpable 2+ radial pulses. ABDOMEN: Soft. Nondistended. Nontender MUSCULOSKELETAL: No clubbing or cyanosis. NEUROLOGIC: No focal or lateralizing signs. Cranial nerves II through XII grossly intact. PSYCH: Appropriate affect. Alert and oriented to person, place and time. SKIN: Well perfused. Good skin turgor. LABORATORY DATA: WBC 17.8 down to 9.96 hemoglobin 14.1 and on 11.9 platelets 283 Sodium 137 potassium 3.9 creatinine 0.8 Total bilirubin 3.3 up to 3.5 AST 604 down to 221 ALT 481 down to 298 alk phos 157 down to 144 IMAGING: Abdominal ultrasound demonstrating uncomplicated cholelithiasis ASSESSMENT: 1. Epigastric abdominal pain 2. Possible choledocholithiasis 3. Cholelithiasis PLAN: -Further recommendations forthcoming per surgeon -Agree with GI consult and MRCP -Continue to monitor LFTs and total bilirubin -Keep Eliquis on hold -Continue clear liquids Physician Vpk Teacher note has been reviewed by physician. Signing provider agrees with the documented findings, assessment, and plan of care. Past Medical History Past Medical History: Atrial Fibrillation, GERD/Reflux, Hyperlipidemia, Osteoarthritis (OA), Thyroid Disorder Additional Past Medical History / Comment(s): See Dr Arevalo's H&P. Radiation for thyroid, hx fx of rt hip 10/19 uses walker. 10/09/17 EPS with ablation for a-flutter History of Any Multi-Drug Resistant Organisms: None Reported Past Surgical History: Adenoidectomy, Joint Replacement, Tonsillectomy Additional Past Surgical History / Comment(s): LT TKA, repair rt hip fx with plates and screws. COLONOSCOPY. 10/09/17 EPS with ablation for a-flutter Past Anesthesia/Blood Transfusion Reactions: No Reported Reaction Past Psychological History: No Psychological Hx Reported Smoking Status: Current every day smoker Past Alcohol Use History: None Reported Additional Past Alcohol Use History / Comment(s): smoker for 20 years 1/2ppd Past Drug Use History: None Reported - Past Family History Father Family Medical History: Myocardial Infarction ([place]) Brother(s) Family Medical History: No Reported History Mother Family Medical History: Coronary Artery Disease (CAD) Medications and Allergies Home Medications Medication Instructions Recorded Confirmed Type Apixaban [Eliquis] 5 mg PO BID 10/24/16 07/18/21 History Flecainide Acetate 50 mg PO BID 10/24/16 07/18/21 History Metoprolol Tartrate 25 mg PO BID 10/24/16 07/18/21 History Omeprazole 20 mg PO DAILY 10/24/16 07/18/21 History Ferrous Sulfate [Iron] 325 mg PO HS 10/02/17 07/18/21 History Atorvastatin [Lipitor] 20 mg PO HS 07/18/21 07/18/21 History Cholecalciferol [Vitamin D3 (25 50 mcg PO DAILY 07/18/21 07/18/21 History Mcg = 1000 Iu)] Denosumab [Prolia] 60 mg SQ Q180D 07/18/21 07/18/21 History Levothyroxine Sodium [Levoxyl] 100 mcg PO COLLINS 07/18/21 07/18/21 History Levothyroxine Sodium [Synthroid] 125 mcg PO MOTUWETHFRSA 07/18/21 07/18/21 History lisinopriL [Zestril] 5 mg PO HS 07/18/21 07/18/21 History Allergies Allergy/AdvReac Type Severity Reaction Status Date / Time No Known Allergies Allergy Verified 07/18/21 13:34 Surgical - Exam Vital Signs Temp Pulse Resp BP Pulse Ox 97.1 F L 69 16 87/55 97 07/18/21 12:18 07/18/21 12:18 07/18/21 12:18 07/18/21 12:18 07/18/21 12:18 Results - Labs 07/19/21 03:45 07/19/21 03:45 Abnormal Lab Results - Last 24 Hours (Table) 07/18/21 07/18/21 07/18/21 Range/Units 12:55 12:55 15:54 WBC 17.8 H (3.8-10.6) k/uL RBC (4.10-5.20) X 10*6/uL Hgb (12.0-15.0) g/dL Hct (37.2-46.3) % MCV (80.0-97.0) fL Neutrophils # 16.4 H (1.3-7.7) k/uL Lymphocytes # 0.4 L (1.0-4.8) k/uL Sodium 135 L (137-145) mmol/L Carbon Dioxide (20.0-27.5) mmol/L Glucose 131 H (74-99) mg/dL Calcium (8.7-10.3) mg/dL Total Bilirubin 3.3 H (0.2-1.3) mg/dL AST 604 H (14-36) U/L ALT 481 H (4-34) U/L Alkaline Phosphatase 157 H (38-126) U/L Total Protein (6.2-8.2) g/dL Albumin (3.8-4.9) g/dL Urine Appearance Cloudy H (Clear) Urine Blood Small H (Negative) Urine RBC 8 H (0-5) /hpf Urine WBC 6 H (0-5) /hpf Amorphous Sediment Rare H (None) /hpf Urine Bacteria Moderate H (None) /hpf Urine Mucus Rare H (None) /hpf 07/19/21 07/19/21 Range/Units 03:45 03:45 WBC (3.8-10.6) k/uL RBC 3.72 L (4.10-5.20) X 10*6/uL Hgb 11.9 L (12.0-15.0) g/dL Hct 37.0 L (37.2-46.3) % MCV 99.5 H (80.0-97.0) fL Neutrophils # 7.97 H (1.3-7.7) k/uL Lymphocytes # 0.80 L (1.0-4.8) k/uL Sodium (137-145) mmol/L Carbon Dioxide 18.6 L (20.0-27.5) mmol/L Glucose (74-99) mg/dL Calcium 7.9 L (8.7-10.3) mg/dL Total Bilirubin 3.50 H (0.2-1.3) mg/dL AST 221 H (14-36) U/L ALT 298 H (4-34) U/L Alkaline Phosphatase 144 H (38-126) U/L Total Protein 5.5 L (6.2-8.2) g/dL Albumin 3.4 L (3.8-4.9) g/dL Urine Appearance (Clear) Urine Blood (Negative) Urine RBC (0-5) /hpf Urine WBC (0-5) /hpf Amorphous Sediment (None) /hpf Urine Bacteria (None) /hpf Urine Mucus (None) /hpf Diabetes panel 07/18/21 07/19/21 Range/Units 12:55 03:45 Sodium 135 L 137 (137-145) mmol/L Potassium 4.1 3.9 (3.5-5.1) mmol/L Chloride 105 108 (98-107) mmol/L Carbon Dioxide 22 18.6 L (22-30) mmol/L BUN 17 11.9 (7-17) mg/dL Creatinine 0.79 0.8 (0.52-1.04) mg/dL Glucose 131 H 79 (74-99) mg/dL Calcium 8.6 7.9 L (8.4-10.2) mg/dL AST 604 H 221 H (14-36) U/L ALT 481 H 298 H (4-34) U/L Alkaline Phosphatase 157 H 144 H (38-126) U/L Total Protein 6.9 5.5 L (6.3-8.2) g/dL Albumin 3.7 3.4 L (3.5-5.0) g/dL Calcium panel 07/18/21 07/19/21 Range/Units 12:55 03:45 Calcium 8.6 7.9 L (8.4-10.2) mg/dL Albumin 3.7 3.4 L (3.5-5.0) g/dL Pituitary panel 07/18/21 07/19/21 Range/Units 12:55 03:45 Sodium 135 L 137 (137-145) mmol/L Potassium 4.1 3.9 (3.5-5.1) mmol/L Chloride 105 108 (98-107) mmol/L Carbon Dioxide 22 18.6 L (22-30) mmol/L BUN 17 11.9 (7-17) mg/dL Creatinine 0.79 0.8 (0.52-1.04) mg/dL Glucose 131 H 79 (74-99) mg/dL Calcium 8.6 7.9 L (8.4-10.2) mg/dL Adrenal panel 07/18/21 07/19/21 Range/Units 12:55 03:45 Sodium 135 L 137 (137-145) mmol/L Potassium 4.1 3.9 (3.5-5.1) mmol/L Chloride 105 108 (98-107) mmol/L Carbon Dioxide 22 18.6 L (22-30) mmol/L BUN 17 11.9 (7-17) mg/dL Creatinine 0.79 0.8 (0.52-1.04) mg/dL Glucose 131 H 79 (74-99) mg/dL Calcium 8.6 7.9 L (8.4-10.2) mg/dL Total Bilirubin 3.3 H 3.50 H (0.2-1.3) mg/dL AST 604 H 221 H (14-36) U/L ALT 481 H 298 H (4-34) U/L Alkaline Phosphatase 157 H 144 H (38-126) U/L Total Protein 6.9 5.5 L (6.3-8.2) g/dL Albumin 3.7 3.4 L (3.5-5.0) g/dL
--- NOTE | 2021-07-19 13:42 | P.CONS ---
History of Present Illness - Reason for Consult Consult date: 07/19/21 Transaminitis Requesting physician: Jason Barrett - Chief Complaint Epigastric pain - History of Present Illness This is a 70-year-old white female who presented to emergency department yesterday with complaints of epigastric pain. Patient states the pain started 2-3 days ago and lasted about 2 days. States that yesterday morning she started feeling better and by the afternoon she had no more pain. She states she did have some associated nausea but no vomiting. States her last bowel movement Friday. She does have a history of atrial fibrillation on Eliquis, last dose yesterday morning. She had ultrasound of the gallbladder that showed uncomplicated cholelithiasis with no evidence of CBD dilation. On admission patient had a WBC of 17.8, total bilirubin 3.3 AST 604T 481 alk phos 157 amylase 35 lipase 33. Repeat labs today WBC 9.9 hemoglobin 11.9 hematocrit 37 platelet count 283,000 total bilirubin 3.5 AST 221 AST to 98 alk phos 144. He currently denies any abdominal pain, nausea, or vomiting. She is tolerating clear liquid diet. Denies any previous history of gallstone issues. No previous history of liver disease. She's been afebrile. Review of Systems REVIEW OF SYSTEMS: CARDIOPULMONARY: No chest pain or shortness of breath. Gastrointestinal: Burning epigastric pain associated with nausea but no vomiting. No hematemesis, coffee-ground emesis. No rectal bleeding, or melena. GENITOURINARY: No dysuria or hematuria. MUSCULOSKELETAL: Reports normal range of motion., Joint pain. SKIN: No rashes. No jaundice. ENDOCRINE: No chills, fevers. No excessive weight gain or loss. No polydipsia or polyuria. PSYCHIATRIC: Unremarkable. NEUROLOGY: No change in mental status. Denies dizziness, headache. ENT: Vision unremarkable. CONSTITUTIONAL: No recent weight loss. No fever, chills, night sweats. Past Medical History Past Medical History: Atrial Fibrillation, GERD/Reflux, Hyperlipidemia, Osteoarthritis (OA), Thyroid Disorder Additional Past Medical History / Comment(s): See Dr Arevalo's H&P. Radiation for thyroid, hx fx of rt hip 10/19 uses walker. 10/09/17 EPS with ablation for a-flutter History of Any Multi-Drug Resistant Organisms: None Reported Past Surgical History: Adenoidectomy, Joint Replacement, Tonsillectomy Additional Past Surgical History / Comment(s): LT TKA, repair rt hip fx with plates and screws. COLONOSCOPY. 10/09/17 EPS with ablation for a-flutter Past Anesthesia/Blood Transfusion Reactions: No Reported Reaction Past Psychological History: No Psychological Hx Reported Smoking Status: Current every day smoker Past Alcohol Use History: None Reported Additional Past Alcohol Use History / Comment(s): smoker for 20 years 1/2ppd Past Drug Use History: None Reported - Past Family History Father Family Medical History: Myocardial Infarction ([place]) Brother(s) Family Medical History: No Reported History Mother Family Medical History: Coronary Artery Disease (CAD) Medications and Allergies Home Medications Medication Instructions Recorded Confirmed Type Apixaban [Eliquis] 5 mg PO BID 10/24/16 07/18/21 History Flecainide Acetate 50 mg PO BID 10/24/16 07/18/21 History Metoprolol Tartrate 25 mg PO BID 10/24/16 07/18/21 History Omeprazole 20 mg PO DAILY 10/24/16 07/18/21 History Ferrous Sulfate [Iron] 325 mg PO HS 10/02/17 07/18/21 History Atorvastatin [Lipitor] 20 mg PO HS 07/18/21 07/18/21 History Cholecalciferol [Vitamin D3 (25 50 mcg PO DAILY 07/18/21 07/18/21 History Mcg = 1000 Iu)] Denosumab [Prolia] 60 mg SQ Q180D 07/18/21 07/18/21 History Levothyroxine Sodium [Levoxyl] 100 mcg PO COLLINS 07/18/21 07/18/21 History Levothyroxine Sodium [Synthroid] 125 mcg PO MOTUWETHFRSA 07/18/21 07/18/21 History lisinopriL [Zestril] 5 mg PO HS 07/18/21 07/18/21 History Allergies Allergy/AdvReac Type Severity Reaction Status Date / Time No Known Allergies Allergy Verified 07/18/21 13:34 Physical Exam Vitals: Vital Signs Temp Pulse Pulse Resp BP BP Pulse Ox 07/19/21 02:00 98.9 F 57 L 16 100/65 96 07/18/21 20:00 98.7 F 73 16 110/58 97 07/18/21 16:06 98.7 F 67 18 116/62 97 07/18/21 12:18 97.1 F L 69 16 87/55 97 Intake and Output 07/18/21 07/19/21 07/19/21 22:59 06:59 14:59 Intake Total 490 700 Balance 490 700 Intake: IV 250 700 Piperacillin-Tazobactam 3 100 100 .375 gm In Sodium Chloride 0.9% 100 ml @ 200 mls/hr IVPB ONCE STA Rx#:[id number] Sodium Chloride 0.9% 1, 150 600 000 ml @ 75 mls/hr IV . [id number] [facility] Rx#:[id number] Oral 240 Other: Voiding Method Toilet # Voids 1 Weight 108.862 kg General appearance: The patient is alert, oriented, appears in no acute distress. HET: Head is normocephalic and atraumatic. Conjunctiva pink. Sclera anicteric. Neck: Supple without lymphadenopathy. Trachea midline. Heart: S1 S2. Regular rate and rhythm. Lungs: Clear to auscultation. Abdomen: Soft, nontender, nondistended with bowel sounds. No guarding or rigidity. Skin: No rashes. No jaundice. Extremities: Normal skin color and turgor. No pedal edema. Neurological: No focal deficits. Alert and oriented x3. Results CBC & Chem 7: 07/19/21 03:45 07/19/21 03:45 Labs: Abnormal Lab Results - Last 24 Hours (Table) 07/18/21 07/18/21 07/18/21 Range/Units 12:55 12:55 15:54 WBC 17.8 H (3.8-10.6) k/uL Neutrophils # 16.4 H (1.3-7.7) k/uL Lymphocytes # 0.4 L (1.0-4.8) k/uL Sodium 135 L (137-145) mmol/L Glucose 131 H (74-99) mg/dL Total Bilirubin 3.3 H (0.2-1.3) mg/dL AST 604 H (14-36) U/L ALT 481 H (4-34) U/L Alkaline Phosphatase 157 H (38-126) U/L Urine Appearance Cloudy H (Clear) Urine Blood Small H (Negative) Urine RBC 8 H (0-5) /hpf Urine WBC 6 H (0-5) /hpf Amorphous Sediment Rare H (None) /hpf Urine Bacteria Moderate H (None) /hpf Urine Mucus Rare H (None) /hpf Comments: Ultrasound of the gallbladder that showed uncomplicated cholelithiasis with no evidence of CBD dilation. Assessment and Plan (1) Transaminitis Narrative/Plan: 70-year-old female that presented to the emergency department with complaints of 2 days of epigastric pain associated with nausea but no vomiting. She came into the emergency department yesterday afternoon and was noted to have elevated LFTs. She had ultrasound of gallbladder showing non-complicated cholelithiasis. No previous history of gallbladder disease or liver disease. Total bilirubin 3.5 AST 221 and T2 98 alk phos 144, labs do appear to be consistent with possible CBD obstruction. Although ultrasound report shows no dilated CBD. Continue to hold Eliquis, MRCP ordered to evaluate for choledocholithiasis Current Visit: Yes Status: Acute Code(s): R74.01 - ELEVATION OF LEVELS OF LIVER TRANSAMINASE LEVELS SNOMED Code(s): 936544162 (2) Cholelithiasis Current Visit: Yes Status: Acute Code(s): K80.20 - CALCULUS OF GALLBLADDER W/O CHOLECYSTITIS W/O OBSTRUCTION SNOMED Code(s): 735786805 (3) Hyperbilirubinemia Current Visit: Yes Status: Acute Code(s): E80.6 - OTHER DISORDERS OF BILIRUBIN METABOLISM SNOMED Code(s): 39628286 Plan: 1. Continue symptomatic and supportive care 2. MRCP ordered 3. Patient may continue with clear liquid diet, nothing by mouth after midnight 4. Antiemetics as needed 5. Repeat CBC CMP daily 6. Appreciate recommendations from general surgery 7. Further recommendations forthcoming pending MRCP results Thank you for this consultation, we will continue to follow. Dr. Ness Ro I agree with the dictator's note, documented as a scribe by Shira Lee.
[2021-07-19] MEDS: FERROUS SULFATE 325 MG TAB PO SCH (20:28)
[2021-07-19] MEDS: ATORVASTATIN 20 MG TAB PO SCH (20:28)
--- NOTE | 2021-07-20 00:20 | P.PN ---
Subjective Progress Note Date: 07/19/21 Patient is a 70-year-old female with a known history of atrial fibrillation with history of ablation, hyperlipidemia, GERD, osteoarthritis, hypothyroidism with history of radiation for thyroid and ongoing nicotine addiction presents to ER with complaints of abdominal pain. Patient states that for the past couple of days patient has been having abdominal pain mainly is in the epigastric region associated with some nausea and episode of vomiting. Patient also felt cold and clammy. Otherwise denies any fever. Denies any complaints of right upper quadrant pain. No recent illnesses. No hematemesis or melena. No cough or sputum production. No chest pain or shortness of breath. On admission blood pressure was 87/55 pulse 69 respirations 16 and pulse ox 97% on room air. Chest x-ray showed no evidence for acute pulmonary disease. Gallbladder ultrasound showed uncomplicated cholelithiasis. Common bile duct within normal limits. EKG showed sinus rhythm. Laboratory data showed WBC 17.8 hemoglobin 14.1 and platelets 336 sodium 135 potassium 4.1 chloride 105 bicarb is 22 BUN 17 and creatinine 0.79 total bilirubin level is 3.3 AST 604 ALT 41 and alk phos 157 and troponin x192 Urinalysis is cloudy with small blood and nitrite negative and leukocyte esterase negative. 07/19/2021 Patient is currently sitting in the chair comfortably. Able to tolerate oral diet. No complaints of chest pain. No abdominal pain. No fever no chills. No other acute overnight issues. Laboratory data showed bilirubin level went up to 3.5 AST trending down to 221 and ALT 298 and alk phos 144. Lipase and amylase not elevated. MRCP was ordered to evaluate for choledocholithiasis. No evidence of CBD dilati on on the ultrasound abdominal/liver. GI is on board. Current medications reviewed. Objective - Vital Signs Vital signs: Vital Signs Temp 98.8 F 07/19/21 08:00 Pulse 54 L 07/19/21 08:00 Resp 16 07/19/21 08:00 BP 127/70 07/19/21 08:00 Pulse Ox 97 07/19/21 08:00 Intake & Output 07/18/21 07/19/21 07/19/21 18:59 06:59 18:59 Intake Total 490 700 700 Balance 490 700 700 Weight 108.862 kg 108.862 kg Intake: IV 250 700 700 Piperacillin-Tazobactam 3 100 100 100 .375 gm In Sodium Chloride 0.9% 100 ml @ 200 mls/hr IVPB ONCE STA Rx#:[id number] Sodium Chloride 0.9% 1, 150 600 600 000 ml @ 75 mls/hr IV . [id number] [facility] Rx#:[id number] Oral 240 Other: Voiding Method Toilet # Voids 1 - Exam PHYSICAL EXAMINATION: Patient is lying in the bed comfortably, no acute distress, awake alert and oriented.. HEENT: Normocephalic. Neck is supple. Pupils reactive. Nostrils clear. Oral c avity is moist. Neck reveals no JVD, carotid bruits, or thyromegaly. CHEST EXAMINATION: Trachea is central. Symmetrical expansion. Lung bynum clear to auscultation and percussion. CARDIAC: Normal S1, S2 with no gallops. No murmurs ABDOMEN: Soft. Bowel sounds normal. No organomegaly. No abdominal bruits. Extremities: reveal no edema. No clubbing or cyanosis Neurologically awake, alert, oriented x3 with well-coordinated movements. No focal deficits noted Skin: No rash or skin lesions. Psychiatric: Cooperative. Nonsuicidal Musculoskeletal: No joint swelling or deformity. Normal range of motion. - Labs CBC & Chem 7: 07/19/21 03:45 07/19/21 03:45 Labs: Abnormal Lab Results - Last 24 Hours (Table) 07/18/21 07/19/21 07/19/21 Range/Units 15:54 03:45 03:45 RBC 3.72 L (4.10-5.20) X 10*6/uL Hgb 11.9 L (12.0-15.0) g/dL Hct 37.0 L (37.2-46.3) % MCV 99.5 H (80.0-97.0) fL Neutrophils # 7.97 H (1.80-7.70) X 10*3/uL Lymphocytes # 0.80 L (0.90-5.00) X 10*3/uL Carbon Dioxide 18.6 L (20.0-27.5) mmol/L Calcium 7.9 L (8.7-10.3) mg/dL Total Bilirubin 3.50 H (0.30-1.20) mg/dL AST 221 H (13-35) U/L ALT 298 H (8-44) U/L Alkaline Phosphatase 144 H (41-126) U/L Total Protein 5.5 L (6.2-8.2) g/dL Albumin 3.4 L (3.8-4.9) g/dL Urine Appearance Cloudy H (Clear) Urine Blood Small H (Negative) Urine RBC 8 H (0-5) /hpf Urine WBC 6 H (0-5) /hpf Amorphous Sediment Rare H (None) /hpf Urine Bacteria Moderate H (None) /hpf Urine Mucus Rare H (None) /hpf Assessment and Plan Assessment: Abdominal pain with transaminitis and elevated bilirubin level with possible choledocholithiasis. Cholelithiasis as per ultrasound abdomen. CBD within normal limit Paroxysmal atrial fibrillation with history of ablation. Currently on anticoagulation with Eliquis and flecainide Hyperlipidemia GERD Hypothyroidism History of radiation to thyroid Morbid obesity BMI 41.2 Currently everyday smoker DVT prophylaxis with heparin subcu Plan: Patient will be continued on IV hydration. Blood pressure did improve with fluid bolus in the ER. Continue with empiric antibiotics in the form of Zosyn due to leukocytosis and hypotension on admission. Follow-up CMP tomorrow. Currently patient Denied any complaints of pain. MRCP was ordered to rule out choledocholithiasis.. Continue with symptomatic management and follow-up closely. Gastroenterology is following. Eliquis is on hold due to possible surgical procedure. Smoking cessation has been counseled.
[2021-07-20] MEDS: LEVOTHYROXINE 125 MCG TAB PO SCH (06:21)
[2021-07-20] MEDS: PIPERACILLIN-TAZOBACTAM 3.375 GM in SODIUM CHLORIDE 0.9% 100 ML IVPB SCH ×2 (08:27→17:39)
--- NOTE | 2021-07-20 08:43 | P.PN ---
Progress Note - Text Progress Note Date: 07/20/21 Patient reports clinically feeling better. Her epigastric/substernal pain has resolved. "I feel fine." Agree with MRCP. Further recommendations pending results of MRCP
[2021-07-20 09:01] LABS: Basophils # (A) 0.04 X 10*3/uL (0.00-0.10); Basophils % (A) 0.5 %; Eosinophils # (A) 0.32 X 10*3/uL (0.04-0.35); Eosinophils % (A) 3.7 %; HGB 12.5 g/dL (12.0-15.0); Immature Grans, Automated 0.5 %; Lymphocytes # (A) 1.27 X 10*3/uL (0.90-5.00); Lymphocytes % (A) 14.5 %; MCH 32.2 pg (27.0-32.0); MCHC 32.1 g/dL (32.0-37.0); MCV 100.5 fL (80.0-97.0); Mean Platelet Volume 11.6 fL (9.5-12.2); Monocytes # (A) 0.85 X 10*3/uL (0.20-1.00); Monocytes % (A) 9.7 %; NRBC Per 100 WBC 0 /100 WBCS (0.0-0.0); Neutrophils # (A) 6.21 X 10*3/uL (1.80-7.70); Neutrophils % (A) 71.1 %; Platelet Count 285 X 10*3/uL (140-440); RBC 3.88 X 10*6/uL (4.10-5.20); RDW 14.7 % (11.5-14.5); WBC 8.73 X 10*3/uL (4.50-10.00)
[2021-07-20 09:22] LABS: African American GFR (CKD) 101.7 (60.0-200.0); Albumin 3.5 g/dL (3.8-4.9); Albumin/Globulin Ratio 1.4 (1.60-3.17); Anion Gap 10.7 mmol/L (10.00-18.00); BUN/Creat Ratio 12.14 Ratio (12.00-20.00); Blood Urea Nitrogen 8.5 mg/dL (9.0-27.0); Calcium 8.3 mg/dL (8.7-10.3); Carbon Dioxide 20.3 mmol/L (20.0-27.5); Globulin 2.5 g/dL (1.6-3.3); Non-African American GFR(CKD) 87.8 (60.0-200.0); Potassium 3.8 mmol/L (3.5-5.5); Total Bilirubin 1.9 mg/dL (0.30-1.20)
[2021-07-20] MEDS: METOPROLOL TARTRATE 25 MG TAB PO SCH ×2 (09:28→21:38)
--- NOTE | 2021-07-20 11:15 | P.PN ---
Subjective Progress Note Date: 07/20/21 CHIEF COMPLAINT: Epigastric abdominal pain HISTORY OF PRESENT ILLNESS: Patient reports her abdominal pain has resolved. She's followed for cholelithiasis and possible choledocholithiasis. She scheduled for MRCP today. She denies any nausea or vomiting. Afebrile. WBC 8.73 hemoglobin 12.5 platelets 285. Sodium 141 potassium 3.8 creatinine 0.7 total bilirubin down from 3.5-1.9 AST down from 221-129 ALT 298 down to 222 alk phos 144 down to 164. PHYSICAL EXAM: VITAL SIGNS: Reviewed GENERAL: Well-developed in no acute distress. HEENT: No sclera icterus. Extraocular movements grossly intact. Moist buccal mucosa. Head is atraumatic, normocephalic. Hears conversational speech. No nasal drainag e. NECK: Supple without lymphadenopathy. CHEST: Non-labored respirations and equal bilateral excursions. CARDIOVASCULAR: Palpable 2+ radial pulses. ABDOMEN: Soft. Nondistended. Nontender. MUSCULOSKELETAL: No clubbing or cyanosis. NEUROLOGIC: No focal or lateralizing signs. Cranial nerves II through XII grossly intact. PSYCH: Appropriate affect. Alert and oriented to person, place and time. SKIN: Well perfused. Good skin turgor. ASSESSMENT: 1. Epigastric abdominal pain 2. Possible choledocholithiasis 3. Cholelithiasis 4. Elevated LFTs and total bilirubin trending down PLAN: -Further recommendations forthcoming per surgeon depending on MRCP results -Keep Eliquis on hold -Continue to monitor LFTs and bilirubin Physician Insurance Policy Issue Clerk note has been reviewed by physician. Signing provider agrees with the documented findings, assessment, and plan of care. Objective - Vital Signs Vital signs: Vital Signs Temp 98.8 F 07/20/21 08:00 Pulse 59 L 07/20/21 08:00 Resp 16 07/20/21 08:00 BP 153/70 07/20/21 08:00 Pulse Ox 96 07/20/21 08:00 Intake & Output 07/19/21 07/20/21 07/20/21 18:59 06:59 18:59 Intake Total 700 Balance 700 Intake: IV 700 Piperacillin-Tazobactam 3 100 .375 gm In Sodium Chloride 0.9% 100 ml @ 200 mls/hr IVPB ONCE STA Rx#:[id number] Sodium Chloride 0.9% 1, 600 000 ml @ 75 mls/hr IV . [id number] [facility] Rx#:[id number] Other: Voiding Method Toilet # Voids 2 - Labs CBC & Chem 7: 07/20/21 05:40 07/20/21 05:40 Labs: Abnormal Lab Results - Last 24 Hours (Table) 07/20/21 07/20/21 Range/Units 05:40 05:40 RBC 3.88 L (4.10-5.20) X 10*6/uL MCV 100.5 H (80.0-97.0) fL MCH 32.2 H (27.0-32.0) pg RDW 14.7 H (11.5-14.5) % Chloride 110 H (96-109) mmol/L BUN 8.5 L (9.0-27.0) mg/dL Calcium 8.3 L (8.7-10.3) mg/dL Total Bilirubin 1.90 H (0.30-1.20) mg/dL AST 129 H (13-35) U/L ALT 222 H (8-44) U/L Alkaline Phosphatase 164 H (41-126) U/L Total Protein 6.0 L (6.2-8.2) g/dL Albumin 3.5 L (3.8-4.9) g/dL Albumin/Globulin Ratio 1.40 L (1.60-3.17) g/dL Microbiology - Last 24 Hours (Table) 07/18/21 15:30 Blood Culture - Preliminary Blood No Growth after 24 hours 07/18/21 15:15 Blood Culture - Preliminary Blood No Growth after 24 hours
[2021-07-20] MEDS: SODIUM CHLORIDE 0.9% 1,000 ML IV SCH (12:08)
[2021-07-20] MEDS: FLECAINIDE 50 MG TAB PO SCH ×2 (12:09→21:38)
[2021-07-20] MEDS: PANTOPRAZOLE 40 MG TABLET PO SCH (12:09)
[2021-07-20] MEDS: HEPARIN SODIUM,PORCINE/PF 5,000 UNIT/0.5 ML SYRINGE SQ SCH ×2 (12:09→17:39)
[2021-07-20] MEDS: CHOLECALCIFEROL 25 MCG (1000 IU) TABLET PO SCH (12:09)
--- NOTE | 2021-07-20 12:09 | MR ---
EXAMINATION TYPE: MR MRCP DATE OF EXAM: 07/20/2021 COMPARISON: Prior CT abdomen and pelvis January 02, 2016. Doppler ultrasound 2 days ago. HISTORY: Transaminitis, hyperbilirubinemia, choledocholithiasis. Standard multiplanar, multisequence MRI departmental protocol Multiplanar, multisequence images of the abdomen were acquired without contrast. Thin and thick slice MRCP imaging performed on an independent workstation and reviewed. FINDINGS: Exam suboptimal as patient cannot hold still and breath hold for ideal imaging. Patient als o could not complete MRCP imaging. Liver/gallbladder/pancreas/biliary system: Liver remains somewhat small in size. No concerning solid or cystic mass on noncontrast images. No significant drop out on in and out of phase imaging. Pancrea s shows moderate generalized atrophy particularly in the head and uncinate process. Gallbladder redem onstrates multiple small dependent gallstones. No surrounding fluid or fat stranding. No abnormal gal lbladder wall thickening. Common bile duct measures up to 7 mm which is upper limits of normal. There is gradual tapering towards the ampulla. Cannot exclude 2 tiny gallstones in common bile duct dickson l image 22 series 301 for reference. Significant motion artifact degradation is present along with sm all stones makes definitive analysis suboptimal. No intrahepatic biliary dilatation identified. Other: Lung bases are grossly clear. The spleen and both adrenal glands appear within normal limits. There is central 5.0 cm simple appearing thin-walled cyst in the right kidney. There is some cortical thinning bilaterally. There is 1.9 cm exophytic round lesion laterally lower pole right kidney that shows isointensity relative to the kidney on T1 and T2-weighted images. This corresponds to CT axial image 39 felt to reflect proteinaceous cyst. Smaller simple cyst anteriorly on CT not clearly seen. No suspicious small or large bowel dilatation. No intra-abdominal ascites. There is mild to moderate compression type fracture at L3 level and mild compression type fracture at L4 level with slight unde rlying scoliotic curvature and multilevel spurring and disc space narrowing throughout the spine. Tin y fat-containing umbilical hernia is redemonstrated. IMPRESSION: Suboptimal study. Redemonstration of multiple small intraluminal gallstones without secon maude ultrasound evidence for acute cholecystitis. Cannot exclude two tiny gallstones within common bi le duct. No abnormal biliary dilatation is identified however.
--- NOTE | 2021-07-20 13:00 | P.PN ---
Subjective Progress Note Date: 07/20/21 Principal diagnosis: Transaminitis, cholelithiasis 70-year-old female who presented for epigastric pain or 2 days ago with spelled of elevated LFTs and bilirubin. Gallbladder ultrasound showed cholelithiasis. The patient denies any abdominal pain, nausea or vomiting. States she has not had pain since Friday morning. She is scheduled to undergo MRCP today. MRCP reports suboptimal study. Redemonstration of multiple small intraluminal gallstones without secondary ultrasound evidence for acute cholecystitis. Cannot exclude 2 tiny gallstones within common bile duct. No abnormal biliary dilation identified however. LFTs are trending down. Repeat total bilirubin 1. 9 AST 129 a.l. T2 22 alk phos 164 Objective - Vital Signs Vital signs: Vital Signs Temp 98.8 F 07/20/21 08:00 Pulse 59 L 07/20/21 08:00 Resp 16 07/20/21 08:00 BP 153/70 07/20/21 08:00 Pulse Ox 96 07/20/21 08:00 Intake & Output 07/19/21 07/20/21 07/20/21 18:59 06:59 18:59 Intake Total 700 Balance 700 Intake: IV 700 Piperacillin-Tazobactam 3 100 .375 gm In Sodium Chloride 0.9% 100 ml @ 200 mls/hr IVPB ONCE STA Rx#:[id number] Sodium Chloride 0.9% 1, 600 000 ml @ 75 mls/hr IV . [id number] [facility] Rx#:[id number] Other: Voiding Method Toilet # Voids 2 - Exam General appearance: The patient is alert, oriented, appears in no acute distress. HET: Head is normocephalic and atraumatic. Conjunctiva pink. Sclera anicteric. Neck: Supple without lymphadenopathy. Abdomen: Soft, obese, nontender, nondistended with bowel sounds. No guarding or rigidity. Extremities: Normal skin color and turgor. No pedal edema Skin: No rashes, no jaundice Neurological: No focal deficits. Alert and oriented -3. - Labs CBC & Chem 7: 07/20/21 05:40 07/20/21 05:40 Labs: Abnormal Lab Results - Last 24 Hours (Table) 07/20/21 07/20/21 Range/Units 05:40 05:40 RBC 3.88 L (4.10-5.20) X 10*6/uL MCV 100.5 H (80.0-97.0) fL MCH 32.2 H (27.0-32.0) pg RDW 14.7 H (11.5-14.5) % Chloride 110 H (96-109) mmol/L BUN 8.5 L (9.0-27.0) mg/dL Calcium 8.3 L (8.7-10.3) mg/dL Total Bilirubin 1.90 H (0.30-1.20) mg/dL AST 129 H (13-35) U/L ALT 222 H (8-44) U/L Alkaline Phosphatase 164 H (41-126) U/L Total Protein 6.0 L (6.2-8.2) g/dL Albumin 3.5 L (3.8-4.9) g/dL Albumin/Globulin Ratio 1.40 L (1.60-3.17) g/dL Microbiology - Last 24 Hours (Table) 07/18/21 15:30 Blood Culture - Preliminary Blood No Growth after 24 hours 07/18/21 15:15 Blood Culture - Preliminary Blood No Growth after 24 hours Assessment and Plan (1) Transaminitis Narrative/Plan: 70-year-old female that presented to the emergency department with complaints of 2 days of epigastric pain associated with nausea but no vomiting. She came into the emergency department yesterday afternoon and was noted to have elevated LFTs. She had ultrasound of gallbladder showing non-complicated cholelithiasis. No previous history of gallbladder disease or liver disease. Total bilirubin 3.5 AST 221 and T2 98 alk phos 144, labs do appear to be consistent with possible CBD obstruction. Although ultrasound report shows no dilated CBD. Continue to hold Eliquis, MRCP ordered to evaluate for choledocholithiasis MRCP cannot exclude 2 tiny stones in the CBD. Will proceed with ERCP today. Current Visit: Yes Status: Acute Code(s): R74.01 - ELEVATION OF LEVELS OF LIVER TRANSAMINASE LEVELS SNOMED Code(s): 221324068 (2) Cholelithiasis Current Visit: Yes Status: Acute Code(s): K80.20 - CALCULUS OF GALLBLADDER W/O CHOLECYSTITIS W/O OBSTRUCTION SNOMED Code(s): 636138892 (3) Hyperbilirubinemia Current Visit: Yes Status: Acute Code(s): E80.6 - OTHER DISORDERS OF BILIRUBIN METABOLISM SNOMED Code(s): 15745941 Plan: 1. Continue symptomatic and supportive care 2. MRCP ordered and reviewed 3. Keep nothing by mouth 4. Antiemetics as needed 5. Repeat CBC CMP daily 6. Appreciate recommendations from general surgery 7. We'll proceed with ERCP this afternoon. Procedure discussed with patient including risks and benefits. Patient willing to proceed. Thank you for allowing us to participate in the care of the patient, the GI service will sign off, gastroenterology will not be available at the hospital this weekend and through next week. If further evaluation by gastroenterology is required the patient will need transfer as per the primary team's discretion. Dr. Ness Ro I agree with the dictator's note, documented as a scribe by Shira Lee.
[2021-07-20] MEDS ORDERED: INDOMETHACIN 50MG SUPPOSITORY RECTAL ONE (13:30)
[2021-07-20] MEDS ORDERED: KETAMINE 10 MG/ML 20 ML VIAL ONE (14:27)
[2021-07-20] MEDS ORDERED: MIDAZOLAM 2 MG/2 ML VIAL ONE (14:27)
[2021-07-20] MEDS ORDERED: LIDOCAINE 1% INJ 10MG/ML (20 ML MDV) ONE (14:27)
[2021-07-20] MEDS ORDERED: PROPOFOL 10 MG/ML 20 ML VIAL IV ONE (14:27)
[2021-07-20] MEDS ORDERED: IV FLUID CONTINUATION 1,000 ML IV ONE ×2 (14:30)
[2021-07-20] MEDS ORDERED: IOPAMIDOL-300 50ML BTL MISCELLANE ONE (15:09)
--- NOTE | 2021-07-20 15:11 | P.PCN ---
Date of Procedure: 07/20/21 Procedure(s) Performed: Brief history: Patient is a 70 year-old pleasant lady scheduled for an ERCP as part of evaluation of abdominal pain, jaundice and elevated serum transaminases for the last 2 days' duration. Ultrasound showed gallstones but no biliary ductal dilation. She had an MRCP done this morning and possibility of 2 small stones were noted in the distal common bile duct and hence scheduled for an ERCP to evaluate further. Procedure performed: ERCP with biliary sphincterotomy and balloon sweep Preoperative diagnoses: Severe epigastric and right upper quadrant abdominal pain and symptomatic gallstones Elevated LFTs and bilirubin rule out CBD stone IV sedation per anesthesia: Procedure: After informed consent was obtained from the patient and after the risks benefits and complications including bleeding perforation and pancreatitis explained in detail the patient was brought into the endoscopy unit. The patient was placed in prone position and IV conscious sedation was administered by anesthesia under continuous monitoring. The Olympus side-viewing duodenoscope was then inserted into the mouth and esophagus intubated without any difficulty. The scope was gradually advanced into the stomach and duodenum. The major papilla was identified without any difficulty. Initial cannulation resulted in opacification of the common bile duct. Which appeared normal in caliber but there was a small filling defect noted in the distal common bile duct. No biliary ductal dilation seen. At this time proceeded with biliary sphincterotomy after the catheter was extended over the guidewire. The biliary sphincterotomy was performed at 12 o'clock position and was extended to 1 cm. Following this an 8.5 mm balloon was passed over the guidewire into the proximal CBD, gently inflated and withdrawn and I did not see any stones exiting the ampulla. This maneuver was repeated 4 times and occlusion cholangiogram was performed which revealed a normal CBD with no filling defects noted. At this time the procedure was terminated and the patient tolerated the procedure well. The pancreatic duct was intentionally not cannulated. Impression: Normal-appearing common bile duct with a small filling defect status post biliary stent enterotomy and balloon sweep Pancreatic duct intentionally not cannulated Recommendations: The findings of this examination were discussed with the patient as well as a family. She'll be started on clear liquid diet. Repeat labs in the morning. She can proceed with gallbladder surgery.
--- NOTE | 2021-07-20 15:35 | FL ---
EXAMINATION TYPE: FL ERCP DATE OF EXAM: 07/20/2021 CLINICAL HISTORY: Gallstones. TECHNIQUE: Fluoroscopy. COMPARISON: MRCP study earlier today.. FINDINGS: Fluoroscopic guidance was provided during ERCP procedure performed by Dr. Ro. A total of 76 seconds of fluoroscopic time was utilized during the procedure and 2 spot images was acquired. Please refer to procedure note for further details as I was not present nor performed procedure. IMPRESSION: As Above.
--- NOTE | 2021-07-20 15:56 | P.PN ---
Progress Note - Text Progress Note Date: 07/20/21 MRCP noted including ERCP. She has significant cardiac history. Recommend cardiac risk assessment for cholecystectomy Friday.
[2021-07-20] MEDS: ATORVASTATIN 20 MG TAB PO SCH (21:38)
[2021-07-20] MEDS: FERROUS SULFATE 325 MG TAB PO SCH (21:38)
[2021-07-21] MEDS: SODIUM CHLORIDE 0.9% 1,000 ML IV SCH ×2 (00:34→08:31)
[2021-07-21] MEDS: PIPERACILLIN-TAZOBACTAM 3.375 GM in SODIUM CHLORIDE 0.9% 100 ML IVPB SCH ×3 (00:56→16:07)
[2021-07-21] MEDS: HEPARIN SODIUM,PORCINE/PF 5,000 UNIT/0.5 ML SYRINGE SQ SCH ×3 (00:56→16:07)
[2021-07-21] MEDS: LEVOTHYROXINE 125 MCG TAB PO SCH (06:22)
[2021-07-21] MEDS: CHOLECALCIFEROL 25 MCG (1000 IU) TABLET PO SCH (08:26)
[2021-07-21] MEDS: METOPROLOL TARTRATE 25 MG TAB PO SCH ×2 (08:26→21:10)
[2021-07-21] MEDS: PANTOPRAZOLE 40 MG TABLET PO SCH (08:26)
[2021-07-21] MEDS: FLECAINIDE 50 MG TAB PO SCH ×2 (08:30→21:09)
--- NOTE | 2021-07-21 11:18 | P.PN ---
Progress Note - Text Progress Note Date: 07/21/21 The patient is status post ERCP with stent placement. She feels fairly well. She has minimal complete pain. On exam her vital signs are stable. Abdomen soft. It. Patient scheduled for laparoscopic cholecystectomy on Friday with Dr. Anand.
--- NOTE | 2021-07-21 12:26 | ECHOF ---
Referral Reason:Abnormal EKG, chest pain MEASUREMENTS -------- HEIGHT: 162.6 cm WEIGHT: 108.9 kg BP: RVIDd: 3.6 cm (< 3.3) IVSd: 1.2 cm (0.6 - 1.1) LVIDd: 5.6 cm (3.9 - 5.3) LVPWd: 1.2 cm (0.6 - 1.1) IVSs: 1.4 cm LVIDs: 4.2 cm LVPWs: 1.4 cm LA Diam: 4.4 cm (2.7 - 3.8) Ao Diam: 2.8 cm (2.0 - 3.7) AV Cusp: 1.4 cm (1.5 - 2.6) MV E Mike: 0.73 m/s MV DecT: 174 ms MV A Mike: 0.78 m/s MV E/A Ratio: 0.93 RAP: 5.00 mmHg RVSP: 11.86 mmHg FINDINGS -------- Atrial fibrillation. This was a techncally difficult study with suboptimal views, , Lumason utilized for enhancement of im ages. The left ventricular size is normal. Left ventricular wall thickness is normal. Overall left vent ricular systolic function is low-normal with, an EF between 50 - 55 %. The right ventricle is normal in size. The left atrium is mildly dilated. The right atrial size is normal. 5.0mg OF Lumason UTLIZED: 2 OR MORE WALL SEGMENTS NOT VISUALIZED. The aortic valve was not well visualized. There is trace mitral regurgitation. The tricuspid valve was not well visualized. The pulmonic valve was not well visualized. Echo free space represents a pericardial fat pad. CONCLUSIONS -------- 1. This was a techncally difficult study with suboptimal views, , Lumason utilized for enhancement of images. 2. The left ventricular size is normal. 3. Left ventricular wall thickness is normal. 4. Overall left ventricular systolic function is low-normal with, an EF between 50 - 55 %. 5. The right ventricle is normal in size. 6. The left atrium is mildly dilated. 7. The right atrial size is normal. 8. 5.0mg OF Lumason UTLIZED: 2 OR MORE WALL SEGMENTS NOT VISUALIZED. 9. The aortic valve was not well visualized. 10. There is trace mitral regurgitation. 11. The tricuspid valve was not well visualized. 12. The pulmonic valve was not well visualized. 13. Echo free space represents a pericardial fat pad. SAFETY PHYSICIAN: Radha Jonas RDCS
--- NOTE | 2021-07-21 20:08 | P.CRDCN ---
History of Present Illness History of present illness: HISTORY OF PRESENTING ILLNESS Patient is a pleasant 70-year-old female with history of atrial flutter status post atrial flutter ablation, hypertension, paroxysmal atrial fibrillation on Eliquis and flecainide, hyperlipidemia, GERD, arthritis, prior thyroid radiation and tobacco abuse who presented with abdominal pain over the prior 2 days which was epigastric and associated with some nausea and vomiting. Blood pressure initially was somewhat borderline and patient was given IV fluids with some improvement. Gallbladder ultrasound showed cholelithiasis and patient eventually underwent ERCP 07/20. She currently denies any further abdominal pain. She states normally she walks with a walker however denies any significant chest pain or pressure and has mild dyspnea if she overdoes it. Symptoms of been very stable and denies any significant heart failure symptoms, no orthopnea. Initial EKG shows sinus rhythm with incomplete right bundle branch block. Echocardiogram performed today shows EF 50-55% without significant valvular disease. Troponin 1 noted to be normal. Cardiology was asked to perform preoperative evaluation for possible cholecystectomy on Friday. REVIEW OF SYSTEMS At the time of my exam: CONSTITUTIONAL: Denies fever or chills. CARDIOVASCULAR: Denies chest pain, +chronic shortness of breath, no orthopnea, PND or palpitations. RESPIRATORY: Denies cough. GASTROINTESTINAL: +abdominal pain, no diarrhea, constipation, +mild nausea, no vomiting. MUSCULOSKELETAL: Denies myalgias. NEUROLOGIC: Denies numbness, tingling or weakness. ENDOCRINE: Denies fatigue, weight change, polydipsia or polyurina. GENITOURINARY: Denies burning, hematuria or urgency with micturation. HEMATOLOGIC: Denies history of anemia or bleeding. PHYSICAL EXAMINATION Vital signs reviewed. CONSTITUTIONAL: No apparent distress. HEENT: Head is normocephalic. Pupils are equal, round. Sclerae anicteric. Mucous membranes of the mouth are moist. No JVD. No carotid bruit. CHEST EXAMINATION: Lungs are clear to auscultation. No chest wall tenderness is noted on palpation or with deep breathing. HEART EXAMINATION: Regular rate and rhythm. S1, S2 heard. No murmurs, gallops or rub. ABDOMEN: Soft, nontender. Positive bowel sounds. EXTREMITIES: 2+ peripheral pulses, no lower extremity edema and no calf tenderness. NEUROLOGIC EXAMINATION: Patient is awake, alert and oriented x3. ASSESSMENT 1. Preoperative cardiovascular evaluation 2. Paroxysmal atrial fibrillation 3. History of atrial flutter status post atrial flutter ablation 4. Gallbladder disease status post ERCP 5. Chronic dyspnea appears stable 6. Low normal ejection fraction 50-55% PLAN Patient's main presentation of abdominal pain with nausea consistent with gallbladder disease. She is not having any significant heart failure type symptoms, no angina-type symptoms and appears she is able to do 4 METs of activity without chest pain or heart failure symptoms. Echo shows low normal ejection fraction. Patient is cleared from a cardiology standpoint for proposed surgery. Continue with metoprolol and flecainide. Okay to hold Eliquis in the perioperative period. Restart anticoagulation when okay with surgery. No further recommendations from a cardiology standpoint. Past Medical History Past Medical History: Atrial Fibrillation, GERD/Reflux, Hyperlipidemia, Osteoarthritis (OA), Thyroid Disorder Additional Past Medical History / Comment(s): See Dr Arevalo's H&P. Radiation for thyroid, hx fx of rt hip 10/19 uses walker. 10/09/17 EPS with ablation for a-flutter History of Any Multi-Drug Resistant Organisms: None Reported Past Surgical History: Adenoidectomy, Joint Replacement, Tonsillectomy Additional Past Surgical History / Comment(s): LT TKA, repair rt hip fx with plates and screws. COLONOSCOPY. 10/09/17 EPS with ablation for a-flutter Past Anesthesia/Blood Transfusion Reactions: No Reported Reaction Past Psychological History: No Psychological Hx Reported Smoking Status: Current every day smoker Past Alcohol Use History: None Reported Additional Past Alcohol Use History / Comment(s): smoker for 20 years 1/2ppd Past Drug Use History: None Reported - Past Family History Father Family Medical History: Myocardial Infarction (CO) Brother(s) Family Medical History: No Reported History Mother Family Medical History: Coronary Artery Disease (CAD) Medications and Allergies Home Medications Medication Instructions Recorded Confirmed Type Apixaban [Eliquis] 5 mg PO BID 10/24/16 07/18/21 History Flecainide Acetate 50 mg PO BID 10/24/16 07/18/21 History Metoprolol Tartrate 25 mg PO BID 10/24/16 07/18/21 History Omeprazole 20 mg PO DAILY 10/24/16 07/18/21 History Ferrous Sulfate [Iron] 325 mg PO HS 10/02/17 07/18/21 History Atorvastatin [Lipitor] 20 mg PO HS 07/18/21 07/18/21 History Cholecalciferol [Vitamin D3 (25 50 mcg PO DAILY 07/18/21 07/18/21 History Mcg = 1000 Iu)] Denosumab [Prolia] 60 mg SQ Q180D 07/18/21 07/18/21 History Levothyroxine Sodium [Levoxyl] 100 mcg PO COLLINS 07/18/21 07/18/21 History Levothyroxine Sodium [Synthroid] 125 mcg PO [id number] 07/18/21 07/18/21 History lisinopriL [Zestril] 5 mg PO HS 07/18/21 07/18/21 History Allergies Allergy/AdvReac Type Severity Reaction Status Date / Time No Known Allergies Allergy Verified 07/18/21 13:34 Physical Exam Vitals: Vital Signs Temp Pulse Resp BP BP Pulse Ox 07/21/21 19:39 98.4 F 55 L 17 149/79 97 07/21/21 14:00 97.8 F 55 L 16 143/78 98 07/21/21 07:32 97.4 F L 52 L 18 147/80 98 07/21/21 01:42 47 L 17 123/60 98 07/20/21 21:34 97.9 F 47 L 16 137/77 98 Intake and Output 07/21/21 07/21/21 07/21/21 06:59 14:59 22:59 Intake Total 600 Balance 600 Intake: IV 600 Sodium Chloride 0.9% 1, 600 000 ml @ 75 mls/hr IV . [id number] [facility] Rx#:[id number] Other: # Voids 2 1 2 # Bowel Movements 0 Results 07/20/21 05:40 07/20/21 05:40 Current Medications Generic Name Dose Route Start Last Admin Trade Name Freq PRN Reason Stop Dose Admin Acetaminophen 650 mg 07/18/21 14:57 Acetaminophen Tab 325 Mg Tab PO Q6HR PRN Mild Pain or Fever > 100.5 Hydrocodone Bitart/Acetaminophen 1 each 07/18/21 14:57 Hydrocodone/Apap 5-325mg 1 Each Tab PO Q4HR PRN Moderate Pain Atorvastatin Calcium 20 mg 07/18/21 21:00 07/20/21 21:38 Atorvastatin 20 Mg Tab PO 20 mg HS NIKKI Administration Cholecalciferol 50 mcg 07/19/21 09:00 07/21/21 08:26 Cholecalciferol 25 Mcg (1000 Iu) Tablet PO 50 mcg DAILY NIKKI Administration Ferrous Sulfate 325 mg 07/18/21 21:00 07/20/21 21:38 Ferrous Sulfate 325 Mg Tab PO 325 mg HS NIKKI Administration Flecainide Acetate 50 mg 07/18/21 21:00 07/21/21 08:30 Flecainide 50 Mg Tab PO 50 mg BID NIKKI Administration Heparin Sodium (Porcine) 5,000 unit 07/19/21 00:00 07/21/21 16:07 Heparin Sodium,Porcine/Pf 5,000 Unit/0.5 Ml Syringe SQ 5,000 unit Q8HR NIKKI Administration Hydromorphone HCl 0.5 mg 07/18/21 14:57 Hydromorphone 0.5 Mg/0.5 Ml Syringe IVP Q3HR PRN Moderate Pain Sodium Chloride 1,000 mls @ 75 mls/hr 07/18/21 15:00 07/21/21 08:31 Saline 0.9% IV 75 mls/hr .[id number] NIKKI Administration Piperacillin Sod/Tazobactam 100 mls @ 25 mls/hr 07/19/21 00:00 07/21/21 16:07 Sod 3.375 gm/ Sodium Chloride IVPB 25 mls/hr Q8HR NIKKI Administration Protocol Levothyroxine Sodium 100 mcg 07/22/21 06:30 Levothyroxine 100 Mcg Tab PO Collins@0630 [facility] Levothyroxine Sodium 125 mcg 07/18/21 20:30 07/21/21 06:22 Levothyroxine 125 Mcg Tab PO 125 mcg [id number]@0630 NIKKI Administration Metoprolol Tartrate 25 mg 07/18/21 21:00 07/21/21 08:26 Metoprolol Tartrate 25 Mg Tab PO 25 mg BID NIKKI Administration Naloxone HCl 0.2 mg 07/18/21 14:57 Naloxone 0.4 Mg/Ml 1 Ml Vial IV Q2M PRN Opioid Reversal Ondansetron HCl 4 mg 07/18/21 14:57 Ondansetron 4 Mg/2 Ml Vial IVP Q8HR PRN Nausea And Vomiting Pantoprazole Sodium 40 mg 07/19/21 07:30 07/21/21 08:26 Pantoprazole 40 Mg Tablet PO 40 mg [id number] [facility] Administration Intake and Output 07/21/21 07/21/21 07/21/21 06:59 14:59 22:59 Intake Total 600 Balance 600 Intake: IV 600 Sodium Chloride 0.9% 1, 600 000 ml @ 75 mls/hr IV . [id number] [facility] Rx#:[id number] Other: # Voids 2 1 2 # Bowel Movements 0 07/20/21 05:40 07/20/21 05:40
[2021-07-21] MEDS: ATORVASTATIN 20 MG TAB PO SCH (21:09)
[2021-07-21] MEDS: FERROUS SULFATE 325 MG TAB PO SCH (21:09)
[2021-07-22] MEDS: PIPERACILLIN-TAZOBACTAM 3.375 GM in SODIUM CHLORIDE 0.9% 100 ML IVPB SCH ×3 (00:16→16:02)
[2021-07-22] MEDS: HEPARIN SODIUM,PORCINE/PF 5,000 UNIT/0.5 ML SYRINGE SQ SCH ×4 (00:16→22:17)
[2021-07-22] MEDS: SODIUM CHLORIDE 0.9% 1,000 ML IV SCH ×2 (00:20→13:22)
--- NOTE | 2021-07-22 00:36 | P.PN ---
Subjective Progress Note Date: 07/20/21 Patient is a 70-year-old female with a known history of atrial fibrillation with history of ablation, hyperlipidemia, GERD, osteoarthritis, hypothyroidism with history of radiation for thyroid and ongoing nicotine addiction presents to ER with complaints of abdominal pain. Patient states that for the past couple of days patient has been having abdominal pain mainly is in the epigastric region associated with some nausea and episode of vomiting. Patient also felt cold and clammy. Otherwise denies any fever. Denies any complaints of right upper quadrant pain. No recent illnesses. No hematemesis or melena. No cough or sputum production. No chest pain or shortness of breath. On admission blood pressure was 87/55 pulse 69 respirations 16 and pulse ox 97% on room air. Chest x-ray showed no evidence for acute pulmonary disease. Gallbladder ultrasound showed uncomplicated cholelithiasis. Common bile duct within normal limits. EKG showed sinus rhythm. Laboratory data showed WBC 17.8 hemoglobin 14.1 and platelets 336 sodium 135 potassium 4.1 chloride 105 bicarb is 22 BUN 17 and creatinine 0.79 total bilirubin level is 3.3 AST 604 ALT 41 and alk phos 157 and troponin x192 Urinalysis is cloudy with small blood and nitrite negative and leukocyte esterase negative. 07/19/2021 Patient is currently sitting in the chair comfortably. Able to tolerate oral diet. No complaints of chest pain. No abdominal pain. No fever no chills. No other acute overnight issues. Laboratory data showed bilirubin level went up to 3.5 AST trending down to 221 and ALT 298 and alk phos 144. Lipase and amylase not elevated. MRCP was ordered to evaluate for choledocholithiasis. No evidence of CBD dilati on on the ultrasound abdominal/liver. GI is on board. 07/20/2021 Patient is currently sitting in a chair comfortable. Denies any complaints of abdominal pain. No nausea vomiting or abdominal pain or diarrhea. MRCP showed suboptimal study. Redemonstration of multiple small intraluminal gallstones without secondary ultrasound evidence of acute cholecystitis. Cannot exclude 2 tiny gallstones within the common bile duct. No abnormal biliary dilatation is identified however. Patient was seen by GI and is planning for ERCP today. Lab data showed bilirubin level improved to 1.9 AST 129 ALT 222 alk phos 164 WBC 8.73 hemoglobin 12.5 and platelets 285. Discussed with the patient and her daughter at bedside in detail. Current medications reviewed. Objective - Vital Signs Vital signs: Vital Signs Temp 98.8 F 07/20/21 08:00 Pulse 59 L 07/20/21 08:00 Resp 16 07/20/21 08:00 BP 153/70 07/20/21 08:00 Pulse Ox 96 07/20/21 08:00 Intake & Output 07/20/21 07/20/21 07/21/21 06:59 18:59 06:59 Intake Total 500 Balance 500 Intake: IV 500 Other: Voiding Method Toilet Toilet # Voids 2 - Exam PHYSICAL EXAMINATION: Patient is lying in the bed comfortably, no acute distress, awake alert and oriented.. HEENT: Normocephalic. Neck is supple. Pupils reactive. Nostrils clear. Oral cavity is moist. Neck reveals no JVD, carotid bruits, or thyromegaly. CHEST EXAMINATION: Trachea is central. Symmetrical expansion. Lung bynum clear to auscultation and percussion. CARDIAC: Normal S1, S2 with no gallops. No murmurs ABDOMEN: Soft. Bowel sounds normal. No organomegaly. No abdominal bruits. Extremities: reveal no edema. No clubbing or cyanosis Neurologically awake, alert, oriented x3 with well-coordinated movements. No focal deficits noted Skin: No rash or skin lesions. Psychiatric: Cooperative. Nonsuicidal Musculoskeletal: No joint swelling or deformity. Normal range of motion. - Labs CBC & Chem 7: 07/20/21 05:40 07/20/21 05:40 Labs: Abnormal Lab Results - Last 24 Hours (Table) 07/20/21 07/20/21 Range/Units 05:40 05:40 RBC 3.88 L (4.10-5.20) X 10*6/uL MCV 100.5 H (80.0-97.0) fL MCH 32.2 H (27.0-32.0) pg RDW 14.7 H (11.5-14.5) % Chloride 110 H (96-109) mmol/L BUN 8.5 L (9.0-27.0) mg/dL Calcium 8.3 L (8.7-10.3) mg/dL Total Bilirubin 1.90 H (0.30-1.20) mg/dL AST 129 H (13-35) U/L ALT 222 H (8-44) U/L Alkaline Phosphatase 164 H (41-126) U/L Total Protein 6.0 L (6.2-8.2) g/dL Albumin 3.5 L (3.8-4.9) g/dL Albumin/Globulin Ratio 1.40 L (1.60-3.17) g/dL Microbiology - Last 24 Hours (Table) 07/18/21 15:30 Blood Culture - Preliminary Blood No Growth after 48 hours 07/18/21 15:15 Blood Culture - Preliminary Blood No Growth after 48 hours Assessment and Plan Assessment: Abdominal pain with transaminitis and elevated bilirubin level with possible choledocholithiasis. Cholelithiasis as per ultrasound abdomen. CBD within normal limit/Intraluminal tiny stones as per MRCP. Paroxysmal atrial fibrillation with history of ablation. Currently on anticoagulation with Eliquis and flecainide Hyperlipidemia GERD Hypothyroidism History of radiation to thyroid Morbid obesity BMI 41.2 Currently everyday smoker DVT prophylaxis with heparin subcu Plan: Patient will be continued on IV hydration. Blood pressure did improve with fluid bolus in the ER. Continue with empiric antibiotics in the form of Zosyn due to leukocytosis and hypotension on admission. Follow-up CMP tomorrow. Currently patient Denied any complaints of pain. Intraluminal tiny stones as per MRCP... GI is planning for ERCP today. Continue with symptomatic management and follow-up closely. Gastroenterology is following. Eliquis is on hold due to possible surgical procedure. Smoking cessation has been counseled. Time with Patient: Greater than 30
--- NOTE | 2021-07-22 00:39 | P.PN ---
Subjective Progress Note Date: 07/21/21 Patient is a 70-year-old female with a known history of atrial fibrillation with history of ablation, hyperlipidemia, GERD, osteoarthritis, hypothyroidism with history of radiation for thyroid and ongoing nicotine addiction presents to ER with complaints of abdominal pain. Patient states that for the past couple of days patient has been having abdominal pain mainly is in the epigastric region associated with some nausea and episode of vomiting. Patient also felt cold and clammy. Otherwise denies any fever. Denies any complaints of right upper quadrant pain. No recent illnesses. No hematemesis or melena. No cough or sputum production. No chest pain or shortness of breath. On admission blood pressure was 87/55 pulse 69 respirations 16 and pulse ox 97% on room air. Chest x-ray showed no evidence for acute pulmonary disease. Gallbladder ultrasound showed uncomplicated cholelithiasis. Common bile duct within normal limits. EKG showed sinus rhythm. Laboratory data showed WBC 17.8 hemoglobin 14.1 and platelets 336 sodium 135 potassium 4.1 chloride 105 bicarb is 22 BUN 17 and creatinine 0.79 total bilirubin level is 3.3 AST 604 ALT 41 and alk phos 157 and troponin x192 Urinalysis is cloudy with small blood and nitrite negative and leukocyte esterase negative. 07/19/2021 Patient is currently sitting in the chair comfortably. Able to tolerate oral diet. No complaints of chest pain. No abdominal pain. No fever no chills. No other acute overnight issues. Laboratory data showed bilirubin level went up to 3.5 AST trending down to 221 and ALT 298 and alk phos 144. Lipase and amylase not elevated. MRCP was ordered to evaluate for choledocholithiasis. No evidence of CBD dilati on on the ultrasound abdominal/liver. GI is on board. 07/20/2021 Patient is currently sitting in a chair comfortable. Denies any complaints of abdominal pain. No nausea vomiting or abdominal pain or diarrhea. MRCP showed suboptimal study. Redemonstration of multiple small intraluminal gallstones without secondary ultrasound evidence of acute cholecystitis. Cannot exclude 2 tiny gallstones within the common bile duct. No abnormal biliary dilatation is identified however. Patient was seen by GI and is planning for ERCP today. Lab data showed bilirubin level improved to 1.9 AST 129 ALT 222 alk phos 164 WBC 8.73 hemoglobin 12.5 and platelets 285. Discussed with the patient and her daughter at bedside in detail. 07/21/2021 Patient is currently sitting in the chair comfortably. Awake alert and oriented x3. No complaints of chest pain or shortness of breath. No nausea vomiting abdominal diarrhea. Heart rate is controlled. Patient is metoprolol and flecainide. Eliquis is on hold due to surgical procedure. ERCP showed normal-appearing common bile duct with small filling defect status post biliary stent enterotomy and balloon sweep. Pancreatic duct intentionally not cannulated. General surgery is planning for cholecystectomy. Cardiology was consulted for clearance. Current medications reviewed. Objective - Vital Signs Vital signs: Vital Signs Temp 98.4 F 07/21/21 19:39 Pulse 55 L 07/21/21 19:39 Resp 17 07/21/21 19:39 BP 149/79 07/21/21 19:39 Pulse Ox 97 07/21/21 19:39 Intake & Output 07/21/21 07/21/21 07/22/21 06:59 18:59 06:59 Intake Total 600 Balance 600 Intake: IV 600 Sodium Chloride 0.9% 1, 600 000 ml @ 75 mls/hr IV . [id number] [facility] Rx#:[id number] Other: Voiding Method Toilet # Voids 2 2 # Bowel Movements 0 - Exam PHYSICAL EXAMINATION: Patient is lying in the bed comfortably, no acute distress, awake alert and oriented.. HEENT: Normocephalic. Neck is supple. Pupils reactive. Nostrils clear. Oral cavity is moist. Neck reveals no JVD, carotid bruits, or thyromegaly. CHEST EXAMINATION: Trachea is central. Symmetrical expansion. Lung bynum clear to auscultation and percussion. CARDIAC: Normal S1, S2 with no gallops. No murmurs ABDOMEN: Soft. Bowel sounds normal. No organomegaly. No abdominal bruits. Extremities: reveal no edema. No clubbing or cyanosis Neurologically awake, alert, oriented x3 with well-coordinated movements. No focal deficits noted Skin: No rash or skin lesions. Psychiatric: Cooperative. Nonsuicidal Musculoskeletal: No joint swelling or deformity. Normal range of motion. - Labs CBC & Chem 7: 07/20/21 05:40 07/20/21 05:40 Labs: Microbiology - Last 24 Hours (Table) 07/18/21 15:30 Blood Culture - Preliminary Blood No Growth after 72 hours 07/18/21 15:15 Blood Culture - Preliminary Blood No Growth after 72 hours Assessment and Plan Assessment: Abdominal pain with transaminitis and elevated bilirubin level with possible choledocholithiasis. Cholelithiasis as per ultrasound abdomen. CBD within normal limit/Intraluminal tiny stones as per MRCP. s/p ERCP and biliary stent Paroxysmal atrial fibrillation with history of ablation. Currently on anticoagulation with Eliquis and flecainide Hyperlipidemia GERD Hypothyroidism History of radiation to thyroid Morbid obesity BMI 41.2 Currently everyday smoker DVT prophylaxis with heparin subcu Plan: Patient will be continued on IV hydration. Blood pressure did improve with fluid bolus in the ER. Continue with empiric antibiotics in the form of Zosyn due to leukocytosis and hypotension on admission. Follow-up CMP tomorrow. Currently patient Denied any complaints of pain. Intraluminal tiny stones as per MRCP..ERCP showed normal-appearing common bile duct with small filling defect status post biliary stent enterotomy and balloon sweep. Pancreatic duct intentionally not cannulated. Continue with symptomatic management and follow-up closely. Gastroenterology is following. Eliquis is on hold due to possible surgical procedure. Smoking cessation has been counseled. Time with Patient: Greater than 30
[2021-07-22] MEDS ORDERED: LEVOTHYROXINE 100 MCG TAB PO SCH (06:30)
[2021-07-22] MEDS: METOPROLOL TARTRATE 25 MG TAB PO SCH ×2 (07:43→22:16)
[2021-07-22] MEDS: PANTOPRAZOLE 40 MG TABLET PO SCH (07:45)
[2021-07-22] MEDS: CHOLECALCIFEROL 25 MCG (1000 IU) TABLET PO SCH (07:45)
[2021-07-22] MEDS: FLECAINIDE 50 MG TAB PO SCH ×2 (07:46→22:16)
--- NOTE | 2021-07-22 10:49 | P.PN ---
Progress Note - Text Progress Note Date: 07/22/21 Patient remains stable. She is scheduled for laparoscopic cholecystectomy in the a.m.
[2021-07-22 12:50] LABS: Albumin 3.3 g/dL (3.8-4.9); Albumin/Globulin Ratio 1.27 (1.60-3.17); BUN/Creat Ratio 11.67 Ratio (12.00-20.00); Calcium 8.2 mg/dL (8.7-10.3); Globulin 2.6 g/dL (1.6-3.3); Non-African American GFR(CKD) 92.4 (60.0-200.0); Potassium 3.6 mmol/L (3.5-5.5); Total Bilirubin 1.4 mg/dL (0.30-1.20); Total Protein 5.9 g/dL (6.2-8.2)
[2021-07-22] MEDS: ATORVASTATIN 20 MG TAB PO SCH (22:16)
[2021-07-22] MEDS: FERROUS SULFATE 325 MG TAB PO SCH (22:16)
[2021-07-23] MEDS: PIPERACILLIN-TAZOBACTAM 3.375 GM in SODIUM CHLORIDE 0.9% 100 ML IVPB SCH ×4 (00:48→23:45)
[2021-07-23] MEDS ORDERED: Potassium Replacement Protocol 1 EACH MISC MISCELLANE PRN (00:59)
--- NOTE | 2021-07-23 01:00 | P.PN ---
Subjective Progress Note Date: 07/22/21 Patient is a 70-year-old female with a known history of atrial fibrillation with history of ablation, hyperlipidemia, GERD, osteoarthritis, hypothyroidism with history of radiation for thyroid and ongoing nicotine addiction presents to ER with complaints of abdominal pain. Patient states that for the past couple of days patient has been having abdominal pain mainly is in the epigastric region associated with some nausea and episode of vomiting. Patient also felt cold and clammy. Otherwise denies any fever. Denies any complaints of right upper quadrant pain. No recent illnesses. No hematemesis or melena. No cough or sputum production. No chest pain or shortness of breath. On admission blood pressure was 87/55 pulse 69 respirations 16 and pulse ox 97% on room air. Chest x-ray showed no evidence for acute pulmonary disease. Gallbladder ultrasound showed uncomplicated cholelithiasis. Common bile duct within normal limits. EKG showed sinus rhythm. Laboratory data showed WBC 17.8 hemoglobin 14.1 and platelets 336 sodium 135 potassium 4.1 chloride 105 bicarb is 22 BUN 17 and creatinine 0.79 total bilirubin level is 3.3 AST 604 ALT 41 and alk phos 157 and troponin x192 Urinalysis is cloudy with small blood and nitrite negative and leukocyte esterase negative. 07/19/2021 Patient is currently sitting in the chair comfortably. Able to tolerate oral diet. No complaints of chest pain. No abdominal pain. No fever no chills. No other acute overnight issues. Laboratory data showed bilirubin level went up to 3.5 AST trending down to 221 and ALT 298 and alk phos 144. Lipase and amylase not elevated. MRCP was ordered to evaluate for choledocholithiasis. No evidence of CBD dilati on on the ultrasound abdominal/liver. GI is on board. 07/20/2021 Patient is currently sitting in a chair comfortable. Denies any complaints of abdominal pain. No nausea vomiting or abdominal pain or diarrhea. MRCP showed suboptimal study. Redemonstration of multiple small intraluminal gallstones without secondary ultrasound evidence of acute cholecystitis. Cannot exclude 2 tiny gallstones within the common bile duct. No abnormal biliary dilatation is identified however. Patient was seen by GI and is planning for ERCP today. Lab data showed bilirubin level improved to 1.9 AST 129 ALT 222 alk phos 164 WBC 8.73 hemoglobin 12.5 and platelets 285. Discussed with the patient and her daughter at bedside in detail. 07/21/2021 Patient is currently sitting in the chair comfortably. Awake alert and oriented x3. No complaints of chest pain or shortness of breath. No nausea vomiting abdominal diarrhea. Heart rate is controlled. Patient is metoprolol and flecainide. Eliquis is on hold due to surgical procedure. ERCP showed normal-appearing common bile duct with small filling defect status post biliary stent enterotomy and balloon sweep. Pancreatic duct intentionally not cannulated. General surgery is planning for cholecystectomy. Cardiology was consulted for clearance. 07/22/2021 Patient is currently resting in bed. Awake alert oriented x3. No complaints of cough or sputum production. No abdominal pain. No nausea vomiting abdominal pain or diarrhea. Tolerating oral diet. Patient is nothing by mouth after midnight per laparoscopic cholecystectomy tomorrow. Laboratory data showed sodium 140 potassium 3.6 chloride 109 bicarb is 70 creatinine 0.6 Total bilirubin level is 1.4 AST 64 ALT 137 alk phos 176 Current medications reviewed. Objective - Vital Signs Vital signs: Vital Signs Temp 97.4 F L 07/22/21 14:00 Pulse 59 L 07/22/21 14:00 Resp 18 07/22/21 14:00 BP 159/76 07/22/21 14:00 Pulse Ox 97 07/22/21 14:00 Intake & Output 07/21/21 07/22/21 07/22/21 18:59 06:59 18:59 Intake Total 600 1780 Balance 600 1780 Intake: IV 600 Sodium Chloride 0.9% 1, 600 000 ml @ 75 mls/hr IV . [id number] [facility] Rx#:[id number] Intake, IV Titration 700 Amount Piperacillin-Tazobactam 3 100 .375 gm In Sodium Chloride 0.9% 100 ml @ 25 mls/hr IVPB Q8HR [facility] Rx# :[id number] Sodium Chloride 0.9% 1, 600 000 ml @ 75 mls/hr IV . [id number] [facility] Rx#:[id number] Oral 1080 Other: Voiding Method Toilet # Voids 2 2 3 - Exam PHYSICAL EXAMINATION: Patient is lying in the bed comfortably, no acute distress, awake alert and oriented.. HEENT: Normocephalic. Neck is supple. Pupils reactive. Nostrils clear. Oral cavity is moist. Neck reveals no JVD, carotid bruits, or thyromegaly. CHEST EXAMINATION: Trachea is central. Symmetrical expansion. Lung bynum clear to auscultation and percussion. CARDIAC: Normal S1, S2 with no gallops. No murmurs ABDOMEN: Soft. Bowel sounds normal. No organomegaly. No abdominal bruits. Extremities: reveal no edema. No clubbing or cyanosis Neurologically awake, alert, oriented x3 with well-coordinated movements. No focal deficits noted Skin: No rash or skin lesions. Psychiatric: Cooperative. Nonsuicidal Musculoskeletal: No joint swelling or deformity. Normal range of motion. - Labs CBC & Chem 7: 07/20/21 05:40 07/22/21 04:43 Labs: Abnormal Lab Results - Last 24 Hours (Table) 07/22/21 Range/Units 04:43 Carbon Dioxide 19.0 L (20.0-27.5) mmol/L BUN 7.0 L (9.0-27.0) mg/dL BUN/Creatinine Ratio 11.67 L (12.00-20.00) Ratio Calcium 8.2 L (8.7-10.3) mg/dL Total Bilirubin 1.40 H (0.30-1.20) mg/dL AST 64 H (13-35) U/L ALT 137 H (8-44) U/L Alkaline Phosphatase 176 H (41-126) U/L Total Protein 5.9 L (6.2-8.2) g/dL Albumin 3.3 L (3.8-4.9) g/dL Albumin/Globulin Ratio 1.27 L (1.60-3.17) g/dL Microbiology - Last 24 Hours (Table) 07/18/21 15:15 Blood Culture - Preliminary Blood No Growth after 96 hours 07/18/21 15:30 Blood Culture - Preliminary Blood No Growth after 96 hours Assessment and Plan Assessment: Abdominal pain with transaminitis and elevated bilirubin level Cholelithiasis as per ultrasound abdomen. CBD within normal limit/Intraluminal tiny stones as per MRCP. s/p ERCP and biliary stent Paroxysmal atrial fibrillation with history of ablation. Currently on anticoagulation with Eliquis and flecainide Hyperlipidemia GERD Hypothyroidism History of radiation to thyroid Morbid obesity BMI 41.2 Currently everyday smoker DVT prophylaxis with heparin subcu Plan: Patient will be continued on IV hydration. Blood pressure did improve with fluid bolus in the ER. Continue with empiric antibiotics in the form of Zosyn due to leukocytosis and hypotension on admission. Follow-up CMP tomorrow. Currently patient Denied any complaints of pain. Intraluminal tiny stones as per MRCP..ERCP showed normal-appearing common bile duct with small filling defec t status post biliary stent enterotomy and balloon sweep. Pancreatic duct intentionally not cannulated. Patient is scheduled for laparoscopic cholecystectomy on Friday. Continue with symptomatic management and follow-up closely. Gastroenterology is following. Elisheilais is on hold due to possible surgical procedure. Smoking cessation has been counseled. Time with Patient: Greater than 30
[2021-07-23] MEDS: SODIUM CHLORIDE 0.9% 1,000 ML IV SCH ×2 (01:23→18:32)
[2021-07-23] MEDS: LEVOTHYROXINE 125 MCG TAB PO SCH (05:21)
[2021-07-23] MEDS: HEPARIN SODIUM,PORCINE/PF 5,000 UNIT/0.5 ML SYRINGE SQ SCH ×3 (06:44→23:45)
[2021-07-23] MEDS: PANTOPRAZOLE 40 MG TABLET PO SCH (07:53)
[2021-07-23] MEDS: CHOLECALCIFEROL 25 MCG (1000 IU) TABLET PO SCH (07:54)
[2021-07-23] MEDS: FLECAINIDE 50 MG TAB PO SCH ×2 (07:54→21:58)
[2021-07-23] MEDS: METOPROLOL TARTRATE 25 MG TAB PO SCH ×2 (07:55→21:58)
[2021-07-23 09:03] LABS: Basophils # (A) 0.06 X 10*3/uL (0.00-0.10); Basophils % (A) 0.8 %; Eosinophils # (A) 0.26 X 10*3/uL (0.04-0.35); Eosinophils % (A) 3.5 %; HCT 42.1 % (37.2-46.3); HGB 13.5 g/dL (12.0-15.0); Immature Grans, Automated 0.3 %; Lymphocytes % (A) 25.4 %; MCH 31.9 pg (27.0-32.0); MCHC 32.1 g/dL (32.0-37.0); MCV 99.5 fL (80.0-97.0); Mean Platelet Volume 11.7 fL (9.5-12.2); Monocytes # (A) 0.58 X 10*3/uL (0.20-1.00); Monocytes % (A) 7.8 %; NRBC Per 100 WBC 0 /100 WBCS (0.0-0.0); Neutrophils # (A) 4.66 X 10*3/uL (1.80-7.70); Neutrophils % (A) 62.2 %; Platelet Count 286 X 10*3/uL (140-440); RBC 4.23 X 10*6/uL (4.10-5.20); RDW 14.5 % (11.5-14.5); WBC 7.48 X 10*3/uL (4.50-10.00)
[2021-07-23 09:20] LABS: Albumin 3.5 g/dL (3.8-4.9); Albumin/Globulin Ratio 1.3 (1.60-3.17); Anion Gap 10.8 mmol/L (10.00-18.00); BUN/Creat Ratio 7.83 Ratio (12.00-20.00); Blood Urea Nitrogen 4.7 mg/dL (9.0-27.0); Calcium 8.5 mg/dL (8.7-10.3); Carbon Dioxide 20.2 mmol/L (20.0-27.5); Globulin 2.7 g/dL (1.6-3.3); Non-African American GFR(CKD) 92.4 (60.0-200.0); Potassium 3.8 mmol/L (3.5-5.5); Total Bilirubin 1.3 mg/dL (0.30-1.20); Total Protein 6.2 g/dL (6.2-8.2)
[2021-07-23] MEDS ORDERED: INDOCYANINE GREEN 25 MG VIAL IV STA ×2 (10:27→15:25)
[2021-07-23] MEDS ORDERED: ACETAMINOPHEN TAB 500 MG TAB PO STA (10:27)
[2021-07-23] MEDS ORDERED: GABAPENTIN 300 MG CAP PO STA (10:27)
[2021-07-23] MEDS ORDERED: ONDANSETRON 4 MG/2 ML VIAL IVP ONE (13:55)
[2021-07-23] MEDS ORDERED: DEXAMETHASONE SOD PHOSPHATE 4 MG/ML 1 ML VIAL IV ONE (13:55)
[2021-07-23 14:29] VITALS: BMI 41.1
[2021-07-23] MEDS: LACTATED RINGERS 1,000 ML IV SCH (15:21)
--- NOTE | 2021-07-23 15:21 | P.PN ---
Subjective Progress Note Date: 07/23/21 CHIEF COMPLAINT: Choledocholithiasis HISTORY OF PRESENT ILLNESS: The patient is a 70-year-old admitted with elevated liver enzymes including choledocholithiasis. She is status post MRCP including ERCP with removal of common bile duct stones. She denies any increased abdominal pain. ROS: No reports of nausea and vomiting. No bowel movements. No fevers or chills. No new chest pain. No productive sputum PHYSICAL EXAM: VITAL SIGNS: Reviewed CONSTITUTIONAL: Well developed and in no acute distress. EYES: Conjuctivae without sclera icterus. Extraocular movements grossly intact. HEAD, EARS, NOSE, THROAT: Moist buccal mucosa. Head is atraumatic, normocephalic. Hears conversational speech. No nasal drainage. RESPIRATORY: Non-labored respirations and equal bilateral excursions. CARDIOVASCULAR: Palpable 2+ radial pulses. ABDOMEN: No peritonitis. MUSCULOSKELETAL: No gross deformity of the lower extremities noted. No clubbing. No cyanosis. SKIN: Good skin turgor. Well perfused. NEUROLOGIC: Cranial nerves II through XII grossly intact. No focal or lateralizing signs. PSYCH: Appropriate affect. Alert and oriented to person, place and time. CLINICAL LABS: Reviewed. LFTs still elevated but trending downward. REPORTS: ERCP report demonstrates removal of small common bile duct stone. ASSESSMENT: 1. Choledocholithiasis 2. Symptomatic cholelithiasis 3. Elevated LFTs PLAN: 1. Benefits and risks of robotic cholecystectomy described. 2. Repeat CMP and CBC described postoperatively. 3. Patient is elevated risk for complications due to pre-existing cardiac disease including hypertensive heart disease and recent ERCP Objective - Vital Signs Vital signs: Vital Signs Temp 97.0 F L 07/23/21 14:58 Pulse 72 07/23/21 14:58 Resp 18 07/23/21 14:58 BP 197/86 07/23/21 14:58 Pulse Ox 97 07/23/21 14:58 Intake & Output 07/22/21 07/23/21 07/23/21 18:59 06:59 18:59 Intake Total 1780 900 Balance 1780 900 Weight 108.862 kg Intake: Intake, IV Titration 700 900 Amount Piperacillin-Tazobactam 3 100 .375 gm In Sodium Chloride 0.9% 100 ml @ 25 mls/hr IVPB Q8HR [facility] Rx# :[id number] Sodium Chloride 0.9% 1, 600 900 000 ml @ 75 mls/hr IV . [id number] [facility] Rx#:[id number] Oral 1080 0 Other: Voiding Method Toilet # Voids 3 2 # Bowel Movements 0 - Labs CBC & Chem 7: 07/23/21 05:45 07/23/21 05:45 Labs: Abnormal Lab Results - Last 24 Hours (Table) 07/23/21 07/23/21 Range/Units 05:45 05:45 MCV 99.5 H (80.0-97.0) fL BUN 4.7 L (9.0-27.0) mg/dL BUN/Creatinine Ratio 7.83 L (12.00-20.00) Ratio Calcium 8.5 L (8.7-10.3) mg/dL Total Bilirubin 1.30 H (0.30-1.20) mg/dL AST 51 H (13-35) U/L ALT 120 H (8-44) U/L Alkaline Phosphatase 183 H (41-126) U/L Albumin 3.5 L (3.8-4.9) g/dL Albumin/Globulin Ratio 1.30 L (1.60-3.17) g/dL Microbiology - Last 24 Hours (Table) 07/18/21 15:15 Blood Culture - Preliminary Blood No Growth after 96 hours 07/18/21 15:30 Blood Culture - Preliminary Blood No Growth after 96 hours Assessment and Plan (1) Choledocholithiasis with acute cholecystitis with obstruction Current Visit: Yes Status: Acute Code(s): K80.43 - CALCULUS OF BILE DUCT W ACUTE CHOLECYSTITIS WITH OBSTRUCTION SNOMED Code(s): 94759025 (2) Elevated liver enzymes Current Visit: Yes Status: Acute Code(s): R74.8 - ABNORMAL LEVELS OF OTHER SERUM ENZYMES SNOMED Code(s): 952582305 (3) Morbid obesity with BMI of 40.0-44.9, adult Current Visit: Yes Status: Acute Code(s): E66.01 - MORBID (SEVERE) OBESITY DUE TO EXCESS CALORIES; Z68.41 - BODY MASS INDEX [BMI] 40.0-44.9, ADULT SNOMED Code(s): 480529103 (4) BMI 40.0-44.9, adult Current Visit: Yes Status: Acute Code(s): Z68.41 - BODY MASS INDEX [BMI] 40.0-44.9, ADULT SNOMED Code(s): 590358618 (5) Hypertensive heart disease Current Visit: Yes Status: Acute Code(s): I11.9 - HYPERTENSIVE HEART DISEASE WITHOUT HEART FAILURE SNOMED Code(s): 19624906 (6) Cholelithiasis Current Visit: Yes Status: Acute Code(s): K80.20 - CALCULUS OF GALLBLADDER W/O CHOLECYSTITIS W/O OBSTRUCTION SNOMED Code(s): 041763223 (7) Hyperbilirubinemia Current Visit: Yes Status: Acute Code(s): E80.6 - OTHER DISORDERS OF BILIRUBIN METABOLISM SNOMED Code(s): 54977720 (8) Transaminitis Current Visit: Yes Status: Acute Code(s): R74.01 - ELEVATION OF LEVELS OF LIVER TRANSAMINASE LEVELS SNOMED Code(s): 988055234
[2021-07-23] MEDS ORDERED: fentaNYL (PF) 50 MCG/ML 2 ML AMP ONE (15:28)
[2021-07-23] MEDS ORDERED: LABETALOL 5 MG/ML VIAL MDV ONE (15:28)
[2021-07-23] MEDS ORDERED: SUCCINYLCHOLINE CHLORIDE VIAL 200 MG/10 ML VIAL IV ONE (15:28)
[2021-07-23] MEDS ORDERED: NEOSTIGMINE 1 MG/ML 10 ML VIAL ONE (15:28)
[2021-07-23] MEDS ORDERED: PROPOFOL 10 MG/ML 20 ML VIAL IV ONE (15:28)
[2021-07-23] MEDS ORDERED: HYDROmorphone (PF) 1 MG/ML ONE (15:28)
[2021-07-23] MEDS ORDERED: LIDOCAINE 1% INJ 10MG/ML (20 ML MDV) ONE (15:28)
[2021-07-23] MEDS ORDERED: INDOCYANINE GREEN 25 MG VIAL IV ONE (15:28)
[2021-07-23] MEDS ORDERED: ROCURONIUM 10 MG/ML (5 ML VIAL) IV ONE (15:28)
[2021-07-23] MEDS ORDERED: GLYCOPYRROLATE 0.2 MG/ML 2 ML VIAL ONE (15:28)
[2021-07-23] MEDS ORDERED: MIDAZOLAM 2 MG/2 ML VIAL ONE (15:28)
[2021-07-23] MEDS ORDERED: HEPARIN SODIUM,PORCINE 5,000 UNIT/ML 1 ML VIAL SQ ONE (15:31)
[2021-07-23] MEDS ORDERED: BUPIVACAIN-EPI 0.25%-1:200,000 30 ML VIAL SQ ONE ×2 (15:32→16:10)
--- NOTE | 2021-07-23 17:39 | P.OP ---
Date of Procedure: 07/23/21 Description of Procedure: SURGEON: YAIMA RIVERA MD PREOPERATIVE DIAGNOSES: 1. Cholelithiasis with cholecystitis due to cystic duct obstruction 2. Symptomatic gallstones 3. Morbid obesity due to excess calories, BMI 41.2 4. Choledocholithiasis 5. Hypertensive heart disease 6. Hyperlipidemia 7. Hypothyroidism 8. Chronic anticoagulation 9. Cardiac arrhythmia with atrial fibrillation 10. Gastroesophageal reflux disease 11. Osteoporosis POSTOPERATIVE DIAGNOSES: 1. Acute hydrops cholecystitis due to gallstones with choledocholithiasis 2. Symptomatic gallstones 3. Morbid obesity due to excess calories, BMI 41.2 4. Choledocholithiasis 5. Hypertensive heart disease 6. Hyperlipidemia 7. Hypothyroidism 8. Chronic anticoagulation 9. Cardiac arrhythmia with atrial fibrillation 10. Gastroesophageal reflux disease 11. Osteoporosis OPERATION: Robotic-assisted da Dominick Xi laparoscopic cholecystectomy, multiport with FIREFLY ESTIMATED BLOOD LOSS: 50 mL. SPECIMENS REMOVED: Gallbladder. COMPLICATIONS: None. OPERATIVE FINDINGS: 1. Acute cholecystitis with hydrops and distended gallbladder 2. Indocyanine green drain confirms acute cholecystitis with lack of contrast in gallbladder INDICATIONS: The patient is a 70 year-old female who presents with epigastric right upper quadrant pain, symptomatic gallstones, transaminitis including choledocholithiasis. She is status post ERCP for choledocholithiasis. Antibiotic management including pain management was prescribed to manage her cholecystitis. Surgical intervention with cholecystectomy was described. Robotic assisted laparoscopic approach was described. Benefits and risks of the procedure including but not limited to bleeding, infection, injury to the biliary tree was reviewed. Informed consent was obtained. DESCRIPTION OF PROCEDURE: Patient was brought to the operating room, placed in supine position. After general induction, the abdomen had been prepped and draped in standard sterile fashion. The robotic da Dominick XI system was primed. After a timeout protocol was performed, the patient had been prepped and draped in standard sterile fashion. The patient was injected with indocyanine green. A 5 mm 0 degrees laparoscopic trocar entry was performed along the left upper quadrant. The abdomen insufflated to 15 mmHg pressure which was tolerated well. Diagnostic laparoscopy demonstrated no injury to bowel viscera or mesentery. The liver surface was unremarkable. A moderately distended gallbladder was identified adding complexity to the case. Next, two 8 mm robotic ports were placed along the right upper abdomen. The camera 8-mm port was maintained along the epigastrium. Another 8 mm port was placed along the left upper abdominal wall after exchanging the 5 mm port. Please note that the ports were placed at least 10 to 15 cm away from the target anatomy of the gallbladder. The robot was docked along the left lateral abdomen. The patient was repositioned in reverse Trendelenburg position with the right side up. Using a grasper for arm 3, a grasper for arm 4, including hook cautery for arm 1, the robotic system was docked and primed as described. Instruments were interchanged by the health information assistant including hook cautery, Bovie cautery and clip appliers. I had sat at the console. The gallbladder was reflected towards the dome of the liver. The gallbladder was moderately distended adding complexity to the case. Moderate edema was found along the cystic triangle including infundibulum. Initial dissection was performed on the gallbladder infundibulum using indocyanine green to illuminate the cystic duct and common bile duct. Due to moderate distention of the infundibulum, dome down technique was performed removing the gallbladder from the hepatic fossa starting from the fundus towards the infundibulum. Using a sponge, the liver was reflected towards the diaphragm and starting at the gallbladder fundus, hook cautery was used to find the avascular plane between the liver and the gallbladder. As the gallbladder was dissected from the hepatic fossa, hemostasis was checked using hook cautery the posterior gallbladder. The entire gallbladder was without contrast consistent with acute cholecystitis. The infundibulum was retracted laterally to expose the cystic duct away from the common bile duct. The cystic lymph node and was dissected free from its surrounding tissue. FIREFLY was used to identify the cystic structures. Large PLASTIC clips were used throughout the entire case. Using a clip literature teacher, 2 clips were placed at the junction of the infundibulum and cystic duct. The cystic duct was divided using hook cautery leaving the 2 clips on the cystic stump. Electro-Bovie cautery and vessel sealer was used to remove the gallbladder without decompression. Hemostasis was checked and found to be adequate. The robot was undocked. I re-scrubbed into the case. A 10 mm Endo Catch bag was used to remove the gallbladder in total via the left upper quadrant incision after widening the incision. The specimen was removed from the abdominal cavity. Andrez Shultz and 0 Vicryl was used to close the fascial defect of the left upper quadrant. All pneumoperitoneum instruments were evacuated from the abdominal cavity. The incisions were cleansed using dilute hydrogen peroxide. The incisions were reapproximated using 4-0 Monocryl in an interrupted subcuticular fashion. Please note along the trocar sites, local anesthetic was placed as a field block prior to insertion of all instruments. Liquid glue was applied to the skin. At the end of the procedure needle, sponge, and instrument count had been verified correct by the certified surgical technician. The patient was transferred to postanesthesia care unit in stable condition. The patient's friend Jenny was called via telephone and message left on voicemail.
[2021-07-23] MEDS: FERROUS SULFATE 325 MG TAB PO SCH (21:58)
[2021-07-23] MEDS: ATORVASTATIN 20 MG TAB PO SCH (21:58)
--- NOTE | 2021-07-23 22:44 | P.PN ---
Subjective Progress Note Date: 07/23/21 Patient is evaluated today sitting up in a chair. She currently denies any chest pain, chest pressure, cough or shortness of breath. There is no abdominal pain or tenderness to palpation. Patient is waiting to undergo lap cholecystectomy today. Echocardiogram showed an EF of 50-55%, patient was cleared by cardiology to undergo surgery. White count today 7.48, sodium 140, potassium 3.8, AST 51 ALT 120, alk phos 183. She is afebrile today, heart rate 66 sinus rhythm, blood pressure 165/76, 97% room air. Review of Systems Constitutional: Denied any fatigue denied any fever. Cardio vascular: denied any chest pain, palpitations Gastrointestinal: denied any nausea, vomiting, diarrhea Pulmonary: Denied any shortness of breath cough Neurologic denied any new focal deficits All inpatient medications were reviewed and appropriate changes in these medications as dictated in the interval history and assessment and plan. REVIEW OF SYSTEMS: CONSTITUTIONAL: No fever, no malaise, no fatigue. HEENT: No recent visual problems or hearing problems. Denied any sore throat. CARDIOVASCULAR: No chest pain, orthopnea, PND, no palpitations, no syncope. PULMONARY: No shortness of breath, no cough, no hemoptysis. GASTROINTESTINAL: No diarrhea, no nausea, no vomiting, no abdominal pain. All inpatient medications have been reviewed. PHYSICAL EXAMINATION: GENERAL: The patient is alert and oriented x3, not in any acute distress. Well developed, well nourished. HEENT: Pupils are round and equally reacting to light. EOMI. No scleral icterus. No conjunctival pallor. Normocephalic, atraumatic. No pharyngeal erythema. No thyromegaly. CARDIOVASCULAR: S1 and S2 present. No murmurs, rubs, or gallops. PULMONARY: Chest is clear to auscultation, no wheezing or crackles. ABDOMEN: Soft, nontender, nondistended, normoactive bowel sounds. No palpable organomegaly. MUSCULOSKELETAL: No joint swelling or deformity. EXTREMITIES: No cyanosis, clubbing, or pedal edema. NEUROLOGICAL: Gross neurological examination did not reveal any focal deficits. SKIN: No rashes. Assessment and Plan Assessment Abdominal pain with transaminitis and elevated bilirubin level pending cholecystectomy today Cholelithiasis as per ultrasound abdomen. CBD within normal limit/Intraluminal tiny stones as per MRCP. s/p ERCP and biliary stent Paroxysmal atrial fibrillation with history of ablation. Currently on an ticoagulation with Eliquis and flecainide Hyperlipidemia GERD Hypothyroidism History of radiation to thyroid Morbid obesity BMI 41.2 Currently everyday smoker DVT prophylaxis with heparin subcu GI Prophylaxis Full code Plan: Patient will be continued on IV hydration. Blood pressure did improve with fluid bolus in the ER. Continue with empiric antibiotics in the form of Zosyn due to leukocytosis and hypotension on admission. White count has normalized. Follow-up CMP tomorrow, CBC tomorrow. Currently patient continues to deny any complaints of pain. Patient is scheduled for laparoscopic cholecystectomy today. Continue with symptomatic management and follow-up closely. Gastroenterology is following. Eliquis is on hold due for surgery, resume once cleared by surgical services Smoking cessation has been counseled. The impression and plan of care has been dictated by Nyla Plascencia Nurse Practitioner as directed. Dr. Angelique MD I have performed a history and physical examination and medical decision making of this patient, discussed the same with the dictator, and agree with the dictators assessment and plan as written, documented as a scribe. Based on total visit time, I have performed more than 50% of this visit. Objective - Vital Signs Vital signs: Vital Signs Temp 98.1 F 07/23/21 08:00 Pulse 59 L 07/23/21 08:00 Resp 17 07/23/21 08:00 BP 163/75 07/23/21 08:00 Pulse Ox 97 07/23/21 08:00 Intake & Output 07/22/21 07/23/21 07/23/21 18:59 06:59 18:59 Intake Total 1780 900 Balance 1780 900 Intake: Intake, IV Titration 700 900 Amount Piperacillin-Tazobactam 3 100 .375 gm In Sodium Chloride 0.9% 100 ml @ 25 mls/hr IVPB Q8HR [facility] Rx# :[id number] Sodium Chloride 0.9% 1, 600 900 000 ml @ 75 mls/hr IV . [id number] [facility] Rx#:[id number] Oral 1080 0 Other: Voiding Method Toilet # Voids 3 2 # Bowel Movements 0 - Labs CBC & Chem 7: 07/23/21 05:45 07/23/21 05:45 Labs: Abnormal Lab Results - Last 24 Hours (Table) 07/23/21 07/23/21 Range/Units 05:45 05:45 MCV 99.5 H (80.0-97.0) fL BUN 4.7 L (9.0-27.0) mg/dL BUN/Creatinine Ratio 7.83 L (12.00-20.00) Ratio Calcium 8.5 L (8.7-10.3) mg/dL Total Bilirubin 1.30 H (0.30-1.20) mg/dL AST 51 H (13-35) U/L ALT 120 H (8-44) U/L Alkaline Phosphatase 183 H (41-126) U/L Albumin 3.5 L (3.8-4.9) g/dL Albumin/Globulin Ratio 1.30 L (1.60-3.17) g/dL Microbiology - Last 24 Hours (Table) 07/18/21 15:15 Blood Culture - Preliminary Blood No Growth after 96 hours 07/18/21 15:30 Blood Culture - Preliminary Blood No Growth after 96 hours Assessment and Plan Time with Patient: Less than 30
[2021-07-23] MEDS: HYDROcodone/APAP 5-325MG 1 EACH TAB PO PRN (23:45)
[2021-07-24] MEDS: LEVOTHYROXINE 125 MCG TAB PO SCH (05:21)
[2021-07-24] MEDS: SODIUM CHLORIDE 0.9% 1,000 ML IV SCH ×2 (05:22→17:57)
[2021-07-24] MEDS: HYDROcodone/APAP 5-325MG 1 EACH TAB PO PRN ×3 (05:24→17:54)
[2021-07-24] MEDS ORDERED: HYDROmorphone 0.5 MG/0.5 ML SYRINGE IVP PRN (07:00)
[2021-07-24] MEDS: METOPROLOL TARTRATE 25 MG TAB PO SCH ×2 (07:55→21:44)
[2021-07-24] MEDS: CHOLECALCIFEROL 25 MCG (1000 IU) TABLET PO SCH (07:55)
[2021-07-24] MEDS: PIPERACILLIN-TAZOBACTAM 3.375 GM in SODIUM CHLORIDE 0.9% 100 ML IVPB SCH ×2 (07:55→17:53)
[2021-07-24] MEDS: HEPARIN SODIUM,PORCINE/PF 5,000 UNIT/0.5 ML SYRINGE SQ SCH ×2 (07:55→17:53)
[2021-07-24] MEDS: PANTOPRAZOLE 40 MG TABLET PO SCH (07:55)
[2021-07-24] MEDS: FLECAINIDE 50 MG TAB PO SCH ×2 (07:56→21:44)
[2021-07-24 09:28] LABS: Basophils # (A) 0.04 X 10*3/uL (0.00-0.10); Basophils % (A) 0.2 %; Eosinophils # (A) 0 X 10*3/uL (0.04-0.35); Eosinophils % (A) 0 %; HCT 40.4 % (37.2-46.3); HGB 12.8 g/dL (12.0-15.0); Immature Grans, Automated 0.4 %; Lymphocytes # (A) 1.44 X 10*3/uL (0.90-5.00); Lymphocytes % (A) 8.8 %; MCH 32.1 pg (27.0-32.0); MCHC 31.7 g/dL (32.0-37.0); MCV 101.3 fL (80.0-97.0); Mean Platelet Volume 12.2 fL (9.5-12.2); Monocytes # (A) 1.05 X 10*3/uL (0.20-1.00); Monocytes % (A) 6.4 %; NRBC Per 100 WBC 0 /100 WBCS (0.0-0.0); Neutrophils # (A) 13.79 X 10*3/uL (1.80-7.70); Neutrophils % (A) 84.2 %; Platelet Count 277 X 10*3/uL (140-440); RBC 3.99 X 10*6/uL (4.10-5.20); RDW 14.8 % (11.5-14.5); WBC 16.38 X 10*3/uL (4.50-10.00)
[2021-07-24 10:32] LABS: Magnesium 1.8 mg/dL (1.5-2.4)
[2021-07-24 10:57] LABS: African American GFR (CKD) 102.3 (60.0-200.0); Albumin 3.5 g/dL (3.8-4.9); Albumin/Globulin Ratio 1.41 (1.60-3.17); Anion Gap 16.3 mmol/L (10.00-18.00); BUN/Creat Ratio 11.42 Ratio (12.00-20.00); Blood Urea Nitrogen 7.9 mg/dL (9.0-27.0); Calcium 8.2 mg/dL (8.7-10.3); Carbon Dioxide 18.4 mmol/L (20.0-27.5); Globulin 2.5 g/dL (1.6-3.3); Non-African American GFR(CKD) 88.3 (60.0-200.0); Total Bilirubin 0.8 mg/dL (0.30-1.20)
--- NOTE | 2021-07-24 12:52 | P.PN ---
Subjective Progress Note Date: 07/24/21 CHIEF COMPLAINT: Abdominal pain HISTORY OF PRESENT ILLNESS: This is 70-year-old female who presented to the emergency department with complaints of epigastric pain 2 days. She was found to have elevated LFTs and total bilirubin. Abdominal ultrasound shows uncomplicated cholelithiasis. She underwent ERCP with findings of a small filling defect status post biliary stent enterotomy and balloon sweep. Yesterday she underwent cholecystectomy. Today she is postop day #1 for roboti c-assisted da Dominick Xi laparoscopic cholecystectomy, multiport with Firefly. Patient states she is doing well. Pain is well managed. She is tolerating her diet. She did have some difficulty with urination had to be straight cathed. Still not voiding on own since surgery. The patient denies any flatus or bowel movement. She denies any nausea, vomiting or abdominal pain other than some mild surgical pain in the left side of her abdomen. She's been afebrile. WBCs 16 hemoglobin 12.8 platelet count 277 pounds Total bilirubin 0.8 AST 82-year-old T1 20 alk phos 164 PHYSICAL EXAM: VITAL SIGNS: Reviewed GENERAL: Well-developed in no acute distress. HEENT: No sclera icterus. Extraocular movements grossly intact. Moist buccal mucosa. Head is atraumatic, normocephalic. Hears conversational speech. No nasal drainage. NECK: Supple without lymphadenopathy. CHEST: Non-labored respirations and equal bilateral excursions. CARDIOVASCULAR: Palpable 2+ radial pulses. ABDOMEN: Soft. Nondistended. Nontender. Positive bowel sounds. Incision sites well approximated, clean dry and intact. Abdominal binder in place. MUSCULOSKELETAL: No clubbing or cyanosis. NEUROLOGIC: No focal or lateralizing signs. Cranial nerves II through XII grossly intact. PSYCH: Appropriate affect. Alert and oriented to person, place and time. SKIN: Well perfused. Good skin turgor. ASSESSMENT: 1. Postop day #1 robotic-assisted da Dominick Xi laparoscopic cholecystectomy, multiport with FIREFLY 2. Acute hydrops cholecystitis due to gallstones with choledocholithiasis 3. Symptomatic gallstones 4. Morbid obesity due to excess calories, BMI 41.2 5. Choledocholithiasis 6. Hypertensive heart disease 7. Hyperlipidemia 8. Hypothyroidism 9. Chronic anticoagulation 10. Cardiac arrhythmia with atrial fibrillation 11. Gastroesophageal reflux disease 12. Osteoporosis PLAN: 1. Continue diet as tolerated 2. Continue abdominal binder 3. Incentive spirometer 4. Encourage ambulation 5. Continue with medical management per medical team 6. Patient is cleared for discharge from Gen. surgery once medically stable The impression and plan of care has been dictated as directed. Dr. Mckeon I performed a history and examination of this patient, discussed the same with the dictator. I agree with the dictator's note ,documented as a scribe. Any additional findings or plans will be noted. Objective - Vital Signs Vital signs: Vital Signs Temp 98.2 F 07/24/21 01:11 Pulse 51 L 07/24/21 03:33 Resp 16 07/24/21 01:11 BP 122/71 07/24/21 03:33 Pulse Ox 79 L 07/24/21 03:33 Intake & Output 07/23/21 07/24/21 07/24/21 18:59 06:59 18:59 Intake Total 750 Output Total 6 750 Balance 744 -750 Weight 108.862 kg Intake: IV 750 Output: Urine 500 Straight 250 Post Void Residual 250 Stool 1 Estimated Blood Loss 5 Other: Voiding Method Toilet Toilet # Voids 2 0 # Bowel Movements 0 - Labs CBC & Chem 7: 07/24/21 04:33 07/24/21 04:33 Labs: Abnormal Lab Results - Last 24 Hours (Table) 07/23/21 07/23/21 Range/Units 05:45 05:45 MCV 99.5 H (80.0-97.0) fL BUN 4.7 L (9.0-27.0) mg/dL BUN/Creatinine Ratio 7.83 L (12.00-20.00) Ratio Calcium 8.5 L (8.7-10.3) mg/dL Total Bilirubin 1.30 H (0.30-1.20) mg/dL AST 51 H (13-35) U/L ALT 120 H (8-44) U/L Alkaline Phosphatase 183 H (41-126) U/L Albumin 3.5 L (3.8-4.9) g/dL Albumin/Globulin Ratio 1.30 L (1.60-3.17) g/dL Microbiology - Last 24 Hours (Table) 07/18/21 15:30 Blood Culture - Preliminary Blood No Growth after 120 hours 07/18/21 15:15 Blood Culture - Preliminary Blood No Growth after 120 hours Assessment and Plan (1) Transaminitis Current Visit: Yes Status: Acute Code(s): R74.01 - ELEVATION OF LEVELS OF LIVER TRANSAMINASE LEVELS SNOMED Code(s): 197317850 (2) Cholelithiasis Current Visit: Yes Status: Acute Code(s): K80.20 - CALCULUS OF GALLBLADDER W/O CHOLECYSTITIS W/O OBSTRUCTION SNOMED Code(s): 104607821 (3) Hyperbilirubinemia Current Visit: Yes Status: Acute Code(s): E80.6 - OTHER DISORDERS OF BILIRUBIN METABOLISM SNOMED Code(s): 13076371
[2021-07-24] MEDS: LACTATED RINGERS 1,000 ML IV SCH (16:41)
[2021-07-24] MEDS ORDERED: ALBUTEROL NEBULIZED 2.5 MG/3 ML INHALATION PRN (16:57)
[2021-07-24] MEDS: FERROUS SULFATE 325 MG TAB PO SCH (21:44)
[2021-07-24] MEDS: ATORVASTATIN 20 MG TAB PO SCH (21:44)
--- NOTE | 2021-07-24 22:34 | P.PN ---
Subjective Progress Note Date: 07/24/21 Patient is evaluated today sitting up in a chair. She currently denies any chest pain, chest pressure, cough or shortness of breath. There is no abdominal pain or tenderness to palpation. Patient is waiting to undergo lap cholecystectomy today. Echocardiogram showed an EF of 50-55%, patient was cleared by cardiology to undergo surgery. White count today 7.48, sodium 140, potassium 3.8, AST 51 ALT 120, alk phos 183. She is afebrile today, heart rate 66 sinus rhythm, blood pressure 165/76, 97% room air. 07/24/2021 Patient evaluated today POD# 1 laproscopic cholecystectomy. Patient is also post operative biliary stent placement. Complains of sharp left lower quadrant abdominal pain, receiving pain medication. Bowel wounds are hypoactive patient has not had a bowel movement in 3 days. Has not been passing gas yet. She was able to tolerate small amount of diet today. IS at bedside at patient is using. Faint expiratory wheezing noted on exam, breathing treatments ordered as needed. Blood cultures are negative. WBC elevated today at 16.38. Liver enzymes trending down. Pt is afebrile, heart rate 61, blood pressure 125/69, 93% on room air. Review of Systems Constitutional: Denied any fatigue denied any fever. Cardio vascular: denied any chest pain, palpitations Gastrointestinal: denied any nausea, vomiting, reports short abdominal pain controlled with medicine, no gas, no BM Pulmonary: Denied any shortness of breath cough Neurologic denied any new focal deficits All inpatient medications were reviewed and appropriate changes in these medications as dictated in the interval history and assessment and plan. REVIEW OF SYSTEMS: CONSTITUTIONAL: No fever, no malaise, no fatigue. HEENT: No recent visual problems or hearing problems. Denied any sore throat. CARDIOVASCULAR: No chest pain, orthopnea, PND, no palpitations, no syncope. PULMONARY: No shortness of breath, no cough, no hemoptysis. GASTROINTESTINAL: No diarrhea, no nausea, no vomiting, no abdominal pain. All inpatient medications have been reviewed. PHYSICAL EXAMINATION: GENERAL: The patient is alert and oriented x3, not in any acute distress. Well developed, well nourished. HEENT: Pupils are round and equally reacting to light. EOMI. No scleral icterus. No conjunctival pallor. Normocephalic, atraumatic. No pharyngeal erythema. No thyromegaly. CARDIOVASCULAR: S1 and S2 present. No murmurs, rubs, or gallops. PULMONARY: Chest is clear to auscultation, no wheezing or crackles. ABDOMEN: Soft, ntender, nondistended, hypoactive bowel sounds. No palpable organomegaly. Post surgical abdomen. MUSCULOSKELETAL: No joint swelling or deformity. EXTREMITIES: No cyanosis, clubbing, or pedal edema. NEUROLOGICAL: Gross neurological examination did not reveal any focal deficits. SKIN: No rashes. Assessment and Plan Assessment Abdominal pain with transaminitis and elevated bilirubin level POD #1 lapros copic cholecystectomy Leukocytosis, reactive secondary to surgery Cholelithiasis as per ultrasound abdomen. CBD within normal limit/Intraluminal tiny stones as per MRCP. s/p ERCP and biliary stent Paroxysmal atrial fibrillation with history of ablation. Currently on anticoagulation with Eliquis and flecainide Hyperlipidemia GERD Hypothyroidism History of radiation to thyroid Morbid obesity BMI 41.2 Currently everyday smoker DVT prophylaxis with heparin subcu GI Prophylaxis Full code Plan: Patient will be continued on IV hydration Continue on empiric antibiotics Continue with symptomatic management and follow-up closely. Gastroenterology is following. Eliquis is on hold due for surgery, resume once cleared by surgical services Smoking cessation has been counseled. Added breathing treatments today Follow up labs in AM The impression and plan of care has been dictated by Nyla Plascencia Nurse Practitioner as directed. Dr. Angelique MD I have performed a history and physical examination and medical decision making of this patient, discussed the same with the dictator, and agree with the dictators assessment and plan as written, documented as a scribe. Based on total visit time, I have performed more than 50% of this visit. Objective - Vital Signs Vital signs: Vital Signs Temp 97.5 F L 07/24/21 08:00 Pulse 66 07/24/21 08:00 Resp 18 07/24/21 08:00 BP 133/74 07/24/21 08:00 Pulse Ox 94 L 07/24/21 08:00 Intake & Output 07/23/21 07/24/21 07/24/21 18:59 06:59 18:59 Intake Total 750 480 Output Total 6 750 300 Balance 744 -750 180 Weight 108.862 kg Intake: IV 750 Oral 480 Output: Urine 500 300 Straight 250 Post Void Residual 250 Stool 1 Estimated Blood Loss 5 Other: Voiding Method Toilet Toilet # Voids 2 0 # Bowel Movements 0 - Labs CBC & Chem 7: 07/24/21 04:33 07/24/21 04:33 Labs: Abnormal Lab Results - Last 24 Hours (Table) 07/24/21 07/24/21 Range/Units 04:33 04:33 WBC 16.38 H (4.50-10.00) X 10*3/uL RBC 3.99 L (4.10-5.20) X 10*6/uL MCV 101.3 H (80.0-97.0) fL MCH 32.1 H (27.0-32.0) pg MCHC 31.7 L (32.0-37.0) g/dL RDW 14.8 H (11.5-14.5) % Immature Gran # 0.06 H (0.00-0.04) X 10*3/uL Neutrophils # 13.79 H (1.80-7.70) X 10*3/uL Monocytes # 1.05 H (0.20-1.00) X 10*3/uL Eosinophils # 0 L (0.04-0.35) X 10*3/uL Carbon Dioxide 18.4 L (20.0-27.5) mmol/L BUN 7.9 L (9.0-27.0) mg/dL BUN/Creatinine Ratio 11.42 L (12.00-20.00) Ratio Calcium 8.2 L (8.7-10.3) mg/dL AST 82 H (13-35) U/L ALT 120 H (8-44) U/L Alkaline Phosphatase 164 H (41-126) U/L Total Protein 6.0 L (6.2-8.2) g/dL Albumin 3.5 L (3.8-4.9) g/dL Albumin/Globulin Ratio 1.41 L (1.60-3.17) g/dL Microbiology - Last 24 Hours (Table) 07/18/21 15:30 Blood Culture - Preliminary Blood No Growth after 120 hours 07/18/21 15:15 Blood Culture - Preliminary Blood No Growth after 120 hours Assessment and Plan Time with Patient: Less than 30
[2021-07-25] MEDS: PIPERACILLIN-TAZOBACTAM 3.375 GM in SODIUM CHLORIDE 0.9% 100 ML IVPB SCH ×3 (00:52→15:40)
[2021-07-25] MEDS: HEPARIN SODIUM,PORCINE/PF 5,000 UNIT/0.5 ML SYRINGE SQ SCH ×2 (00:53→08:04)
[2021-07-25] MEDS: HYDROcodone/APAP 5-325MG 1 EACH TAB PO PRN ×2 (05:17→10:14)
[2021-07-25] MEDS: LEVOTHYROXINE 125 MCG TAB PO SCH (05:52)
[2021-07-25 07:41] LABS: Basophils # (A) 0.1 k/uL (0-0.2); Basophils % (A) 1 %; Eosinophils # (A) 0.2 k/uL (0-0.7); Eosinophils % (A) 2 %; HCT 40.1 % (34.0-46.0); HGB 12.5 gm/dL (11.4-16.0); Hypochromasia Slight; Lymphocytes # (A) 1.4 k/uL (1.0-4.8); Lymphocytes % (A) 10 %; MCH 32.5 pg (25.0-35.0); MCHC 31.1 g/dL (31.0-37.0); MCV 104.5 fL (80.0-100.0); Macrocytosis Slight; Mean Platelet Volume 9.1; Monocytes # (A) 0.5 k/uL (0-1.0); Monocytes % (A) 4 %; Neutrophils # (A) 11.9 k/uL (1.3-7.7); Neutrophils % (A) 84 %; Platelet Count 260 k/uL (150-450); RBC 3.84 m/uL (3.80-5.40); RDW 13.7 % (11.5-15.5); WBC 14.2 k/uL (3.8-10.6)
[2021-07-25 07:56] LABS: ALT 76 U/L (4-34); AST 51 U/L (14-36); African American GFR (CKD) >90 (>60 ml/min/1.73 sqM); Albumin 3.1 g/dL (3.5-5.0); Alkaline Phosphatase 136 U/L (38-126); Anion Gap 5 mmol/L; Blood Urea Nitrogen 6 mg/dL (7-17); Calcium 7.9 mg/dL (8.4-10.2); Carbon Dioxide 22 mmol/L (22-30); Chloride 111 mmol/L (98-107); Globulin 3.1 g/dL; Glucose 98 mg/dL (74-99); Non-African American GFR(CKD) >90 (>60 ml/min/1.73 sqM); Potassium 3.3 mmol/L (3.5-5.1); Sodium 138 mmol/L (137-145); Total Bilirubin 1.2 mg/dL (0.2-1.3); Total Protein 6.2 g/dL (6.3-8.2)
[2021-07-25] MEDS: LACTATED RINGERS 1,000 ML IV SCH (07:56)
[2021-07-25] MEDS: CHOLECALCIFEROL 25 MCG (1000 IU) TABLET PO SCH (08:04)
[2021-07-25] MEDS: PANTOPRAZOLE 40 MG TABLET PO SCH (08:04)
[2021-07-25] MEDS: METOPROLOL TARTRATE 25 MG TAB PO SCH ×2 (08:04→20:45)
[2021-07-25] MEDS: FLECAINIDE 50 MG TAB PO SCH ×2 (08:04→20:45)
--- NOTE | 2021-07-25 08:11 | P.PN ---
Subjective Progress Note Date: 07/25/21 CHIEF COMPLAINT: Abdominal pain HISTORY OF PRESENT ILLNESS: This is 70-year-old female who presented to the emergency department with complaints of epigastric pain 2 days. She was found to have elevated LFTs and total bilirubin. Abdominal ultrasound shows uncomplicated cholelithiasis. She underwent ERCP with findings of a small filling defect status post biliary stent enterotomy and balloon sweep. Yesterday she underwent cholecystectomy. Today she is postop day #1 for roboti c-assisted da Dominick Xi laparoscopic cholecystectomy, multiport with Firefly. Patient states she is doing well. Pain is well managed. She is tolerating her diet. She is now voiding on her own without any difficulty. She denies any passing flatus or bowel movement. States she still has some abdominal discomfort in the left lower quadrant. She's been afebrile. Today's labs WBC 14 point hemoglobin 12.5 platelet count 260,000 sodium 138 potassium 3.3 BUN 6 creatinine 0.6 total bilirubin 1.2 AST 51 ALTs 76 alk phos 136 PHYSICAL EXAM: VITAL SIGNS: Reviewed GENERAL: Well-developed in no acute distress. HEENT: No sclera icterus. Extraocular movements grossly intact. Moist buccal mucosa. Head is atraumatic, normocephalic. Hears conversational speech. No nasal drainage. NECK: Supple without lymphadenopathy. CHEST: Non-labored respirations and equal bilateral excursions. CARDIOVASCULAR: Palpable 2+ radial pulses. ABDOMEN: Soft. Nondistended. Nontender. Positive bowel sounds. Incision sites well approximated, clean dry and intact. MUSCULOSKELETAL: No clubbing or cyanosis. NEUROLOGIC: No focal or lateralizing signs. Cranial nerves II through XII grossly intact. PSYCH: Appropriate affect. Alert and oriented to person, place and time. SKIN: Well perfused. Good skin turgor. ASSESSMENT: 1. Postop day #2 robotic-assisted da Dominick Xi laparoscopic cholecystectomy, multiport with FIREFLY 2. Acute hydrops cholecystitis due to gallstones with choledocholithiasis 3. Symptomatic gallstones 4. Morbid obesity due to excess calories, BMI 41.2 5. Choledocholithiasis 6. Hypertensive heart disease 7. Hyperlipidemia 8. Hypothyroidism 9. Chronic anticoagulation 10. Cardiac arrhythmia with atrial fibrillation 11. Gastroesophageal reflux disease 12. Osteoporosis PLAN: 1. Continue diet as tolerated 2. Continue abdominal binder 3. Incentive spirometer 4. Encourage ambulation 5. Will add simethicone drops 6. Continue with medical management per medical team 7. Patient is cleared by general surgery for discharge if otherwise medically stable The impression and plan of care has been dictated as directed. Dr. Mike Ramirez performed a history and examination of this patient, discussed the same with the dictator. I agree with the dictator's note ,documented as a scribe. Any additional findings or plans will be noted. Objective - Vital Signs Vital signs: Vital Signs Temp 98.7 F 07/25/21 07:41 Pulse 66 07/25/21 07:41 Resp 18 07/25/21 07:41 BP 123/72 07/25/21 07:41 Pulse Ox 94 L 07/25/21 07:16 Intake & Output 07/24/21 07/25/21 07/25/21 18:59 06:59 18:59 Intake Total 480 Output Total 300 Balance 180 Intake: Oral 480 Output: Urine 300 Other: Voiding Method Toilet Toilet # Voids 1 3 # Bowel Movements 0 - Labs CBC & Chem 7: 07/25/21 07:21 07/25/21 07:21 Labs: Abnormal Lab Results - Last 24 Hours (Table) 07/24/21 07/24/21 07/25/21 Range/Units 04:33 04:33 07:21 WBC 16.38 H 14.2 H (4.50-10.00) X 10*3/uL RBC 3.99 L (4.10-5.20) X 10*6/uL MCV 101.3 H 104.5 H (80.0-97.0) fL MCH 32.1 H (27.0-32.0) pg MCHC 31.7 L (32.0-37.0) g/dL RDW 14.8 H (11.5-14.5) % Immature Gran # 0.06 H (0.00-0.04) X 10*3/uL Neutrophils # 13.79 H 11.9 H (1.80-7.70) X 10*3/uL Monocytes # 1.05 H (0.20-1.00) X 10*3/uL Eosinophils # 0 L (0.04-0.35) X 10*3/uL Potassium (3.5-5.1) mmol/L Chloride (98-107) mmol/L Carbon Dioxide 18.4 L (20.0-27.5) mmol/L BUN 7.9 L (9.0-27.0) mg/dL BUN/Creatinine Ratio 11.42 L (12.00-20.00) Ratio Calcium 8.2 L (8.7-10.3) mg/dL AST 82 H (13-35) U/L ALT 120 H (8-44) U/L Alkaline Phosphatase 164 H (41-126) U/L Total Protein 6.0 L (6.2-8.2) g/dL Albumin 3.5 L (3.8-4.9) g/dL Albumin/Globulin Ratio 1.41 L (1.60-3.17) g/dL 07/25/21 Range/Units 07:21 WBC (4.50-10.00) X 10*3/uL RBC (4.10-5.20) X 10*6/uL MCV (80.0-97.0) fL MCH (27.0-32.0) pg MCHC (32.0-37.0) g/dL RDW (11.5-14.5) % Immature Gran # (0.00-0.04) X 10*3/uL Neutrophils # (1.80-7.70) X 10*3/uL Monocytes # (0.20-1.00) X 10*3/uL Eosinophils # (0.04-0.35) X 10*3/uL Potassium 3.3 L (3.5-5.1) mmol/L Chloride 111 H (98-107) mmol/L Carbon Dioxide (20.0-27.5) mmol/L BUN 6 L (9.0-27.0) mg/dL BUN/Creatinine Ratio (12.00-20.00) Ratio Calcium 7.9 L (8.7-10.3) mg/dL AST 51 H (13-35) U/L ALT 76 H (8-44) U/L Alkaline Phosphatase 136 H (41-126) U/L Total Protein 6.2 L (6.2-8.2) g/dL Albumin 3.1 L (3.8-4.9) g/dL Albumin/Globulin Ratio (1.60-3.17) g/dL Microbiology - Last 24 Hours (Table) 07/18/21 15:15 Blood Culture - Final Blood No Growth after 144 hours 07/18/21 15:30 Blood Culture - Final Blood No Growth after 144 hours Assessment and Plan (1) Transaminitis Current Visit: Yes Status: Acute Code(s): R74.01 - ELEVATION OF LEVELS OF LIVER TRANSAMINASE LEVELS SNOMED Code(s): 437471271 (2) Cholelithiasis Current Visit: Yes Status: Acute Code(s): K80.20 - CALCULUS OF GALLBLADDER W/O CHOLECYSTITIS W/O OBSTRUCTION SNOMED Code(s): 819032361 (3) Hyperbilirubinemia Current Visit: Yes Status: Acute Code(s): E80.6 - OTHER DISORDERS OF BILIRUBIN METABOLISM SNOMED Code(s): 22815331
[2021-07-25] MEDS: SODIUM CHLORIDE 0.9% 1,000 ML IV SCH ×2 (08:49→20:46)
[2021-07-25] MEDS ORDERED: POTASSIUM CHLORIDE ER 20 MEQ TAB.ER PO STA (09:08)
--- NOTE | 2021-07-25 15:32 | P.PN ---
Subjective Progress Note Date: 07/25/21 Patient is evaluated today sitting up in a chair. She currently denies any chest pain, chest pressure, cough or shortness of breath. There is no abdominal pain or tenderness to palpation. Patient is waiting to undergo lap cholecystectomy today. Echocardiogram showed an EF of 50-55%, patient was cleared by cardiology to undergo surgery. White count today 7.48, sodium 140, potassium 3.8, AST 51 ALT 120, alk phos 183. She is afebrile today, heart rate 66 sinus rhythm, blood pressure 165/76, 97% room air. 07/24/2021 Patient evaluated today POD# 1 laproscopic cholecystectomy. Patient is also post operative biliary stent placement. Complains of sharp left lower quadrant abdominal pain, receiving pain medication. Bowel wounds are hypoactive patient has not had a bowel movement in 3 days. Has not been passing gas yet. She was able to tolerate small amount of diet today. IS at bedside at patient is using. Faint expiratory wheezing noted on exam, breathing treatments ordered as needed. Blood cultures are negative. WBC elevated today at 16.38. Liver enzymes trending down. Pt is afebrile, heart rate 61, blood pressure 125/69, 93% on room air. 07/25/2021 Patient evaluated today POD #2 laparoscopic cholecystectomy, also postoperative biliary stent placement. Abdominal pain is improving she is passing gas. No bowel movement yet but she does have increased bowel sounds from yesterday. Whi te count today 14.2, sodium 1:30, potassium 3.3, total bili 1.2, liver enzymes continued to trend down. Afebrile, heart rate 64, blood pressure 128/81, and 96% room air. Albuterol on as needed and patient is using IS. Has ambulated. Abdominal binder not in room as unable to obtain from supplies. Continues on IV antibiotics Review of Systems Constitutional: Denied any fatigue denied any fever. Cardio vascular: denied any chest pain, palpitations Gastrointestinal: denied any nausea, vomiting, improving abdominal pain, passing gas, no BM yet Pulmonary: Denied any shortness of breath cough Neurologic denied any new focal deficits All inpatient medications were reviewed and appropriate changes in these medications as dictated in the interval history and assessment and plan. REVIEW OF SYSTEMS: CONSTITUTIONAL: No fever, no malaise, no fatigue. HEENT: No recent visual problems or hearing problems. Denied any sore throat. CARDIOVASCULAR: No chest pain, orthopnea, PND, no palpitations, no syncope. PULMONARY: No shortness of breath, no cough, no hemoptysis. GASTROINTESTINAL: No diarrhea, no nausea, no vomiting, no abdominal pain. All inpatient medications have been reviewed. PHYSICAL EXAMINATION: GENERAL: The patient is alert and oriented x3, not in any acute distress. Well developed, well nourished. HEENT: Pupils are round and equally reacting to light. EOMI. No scleral icterus. No conjunctival pallor. Normocephalic, atraumatic. No pharyngeal erythema. No thyromegaly. CARDIOVASCULAR: S1 and S2 present. No murmurs, rubs, or gallops. PULMONARY: Chest is clear to auscultation, no wheezing or crackles. ABDOMEN: Soft, ntender, nondistended, hypoactive bowel sounds. No palpable organomegaly. Post surgical abdomen. MUSCULOSKELETAL: No joint swelling or deformity. EXTREMITIES: No cyanosis, clubbing, or pedal edema. NEUROLOGICAL: Gross neurological examination did not reveal any focal deficits. SKIN: No rashes. Assessment and Plan Assessment Abdominal pain with transaminitis and elevated bilirubin level POD #2 laproscopic cholecystectomy Leukocytosis, reactive secondary to surgery Cholelithiasis as per ultrasound abdomen. CBD within normal limit/Intraluminal tiny stones as per MRCP. s/p ERCP and biliary stent Paroxysmal atrial fibrillation with history of ablation. Currently on anticoagulation with Eliquis and flecainide Hyperlipidemia GERD Hypothyroidism History of radiation to thyroid Morbid obesity BMI 41.2 Currently everyday smoker DVT prophylaxis with heparin subcu GI Prophylaxis Full code Plan: Diet as tolerated Continue on empiric antibiotics none needed on discharge Continue with symptomatic management and follow-up closely. Gastroenterology is following. Resume eliquis Smoking cessation has been counseled. Added breathing treatments today Follow up labs in AM Discharge tomorrow Encourage IS The impression and plan of care has been dictated by Nyla Plascencia Nurse Practitioner as directed. Dr. Angelique MD I have performed a history and physical examination and medical decision making of this patient, discussed the same with the dictator, and agree with the dictators assessment and plan as written, documented as a scribe. Based on total visit time, I have performed more than 50% of this visit. Objective - Vital Signs Vital signs: Vital Signs Temp 98.0 F 07/25/21 14:00 Pulse 64 03/23/22 14:00 Resp 17 07/25/21 14:00 BP 128/81 07/25/21 14:00 Pulse Ox 96 07/25/21 14:00 Intake & Output 07/24/21 07/25/21 07/25/21 18:59 06:59 18:59 Intake Total 480 Output Total 300 1 Balance 180 -1 Weight 108.862 kg Intake: Oral 480 Output: Urine 300 Stool 1 Other: Voiding Method Toilet Toilet Toilet # Voids 1 3 # Bowel Movements 0 - Labs CBC & Chem 7: 07/25/21 07:21 07/25/21 07:21 Labs: Abnormal Lab Results - Last 24 Hours (Table) 07/25/21 07/25/21 Range/Units 07:21 07:21 WBC 14.2 H (3.8-10.6) k/uL MCV 104.5 H (80.0-100.0) fL Neutrophils # 11.9 H (1.3-7.7) k/uL Potassium 3.3 L (3.5-5.1) mmol/L Chloride 111 H (98-107) mmol/L BUN 6 L (7-17) mg/dL Calcium 7.9 L (8.4-10.2) mg/dL AST 51 H (14-36) U/L ALT 76 H (4-34) U/L Alkaline Phosphatase 136 H (38-126) U/L Total Protein 6.2 L (6.3-8.2) g/dL Albumin 3.1 L (3.5-5.0) g/dL Microbiology - Last 24 Hours (Table) 07/18/21 15:15 Blood Culture - Final Blood No Growth after 144 hours 07/18/21 15:30 Blood Culture - Final Blood No Growth after 144 hours Assessment and Plan Time with Patient: Less than 30
[2021-07-25] MEDS: SIMETHICONE 40 MG/0.6 ML DROPS 2,000 MG/30 ML BOTTLE PO SCH ×3 (15:34→20:46)
[2021-07-25] MEDS: DOCUSATE 100 MG CAP PO SCH (20:45)
[2021-07-25] MEDS: APIXABAN 5 MG TAB PO SCH (20:45)
[2021-07-25] MEDS: FERROUS SULFATE 325 MG TAB PO SCH (20:45)
[2021-07-25] MEDS: ATORVASTATIN 20 MG TAB PO SCH (20:45)
[2021-07-26 03:02] VITALS: PULSE 63
[2021-07-26] MEDS: LEVOTHYROXINE 125 MCG TAB PO SCH (06:52)
[2021-07-26 07:43] VITALS: BP 161/79; RESP 14; TEMP 98.6
[2021-07-26] MEDS: FLECAINIDE 50 MG TAB PO SCH (08:50)
[2021-07-26] MEDS: PIPERACILLIN-TAZOBACTAM 3.375 GM in SODIUM CHLORIDE 0.9% 100 ML IVPB SCH ×3 (08:50)
[2021-07-26] MEDS: METOPROLOL TARTRATE 25 MG TAB PO SCH (08:50)
[2021-07-26] MEDS: CHOLECALCIFEROL 25 MCG (1000 IU) TABLET PO SCH (08:50)
[2021-07-26] MEDS: APIXABAN 5 MG TAB PO SCH (08:50)
[2021-07-26] MEDS: DOCUSATE 100 MG CAP PO SCH (08:50)
[2021-07-26] MEDS: PANTOPRAZOLE 40 MG TABLET PO SCH (08:50)
[2021-07-26] MEDS: SIMETHICONE 40 MG/0.6 ML DROPS 2,000 MG/30 ML BOTTLE PO SCH (09:01)
[2021-07-26 09:23] LABS: Anion Gap 10.9 mmol/L (10.00-18.00); BUN/Creat Ratio 9.5 Ratio (12.00-20.00); Blood Urea Nitrogen 5.7 mg/dL (9.0-27.0); Calcium 8.4 mg/dL (8.7-10.3); Carbon Dioxide 21.1 mmol/L (20.0-27.5); Non-African American GFR(CKD) 92.4 (60.0-200.0); Potassium 3.5 mmol/L (3.5-5.5)
--- NOTE | 2021-07-26 09:25 | P.PN ---
Subjective Progress Note Date: 07/26/21 CHIEF COMPLAINT: Abdominal pain HISTORY OF PRESENT ILLNESS: This is 70-year-old female who presented to the emergency department with complaints of epigastric pain 2 days. She was found to have elevated LFTs and total bilirubin. Abdominal ultrasound shows uncomplicated cholelithiasis. She underwent ERCP with findings of a small filling defect status post biliary stent enterotomy and balloon sweep. Also status post cholecystectomy. She states she has been passing gas and yesterday. No bowel movement. Pain is very well managed. She has abdominal binder on. She was possible discharge yesterday but had some wheezing therefore medicine kept her overnight. She's been afebrile. She is up and ambulating. Voiding without difficulty. Labs currently pending. VITAL SIGNS: Reviewed GENERAL: Well-developed in no acute distress. HEENT: No sclera icterus. Extraocular movements grossly intact. Moist buccal mucosa. Head is atraumatic, normocephalic. Hears conversational speech. No nasal drainage. NECK: Supple without lymphadenopathy. CHEST: Non-labored respirations and equal bilateral excursions. CARDIOVASCULAR: Palpable 2+ radial pulses. ABDOMEN: Soft. Nondistended. Nontender. Positive bowel sounds. Incision sites well approximated, clean dry and intact. MUSCULOSKELETAL: No clubbing or cyanosis. NEUROLOGIC: No focal or lateralizing signs. Cranial nerves II through XII grossly intact. PSYCH: Appropriate affect. Alert and oriented to person, place and time. SKIN: Well perfused. Good skin turgor. ASSESSMENT: 1. Postop day #3 robotic-assisted da Dominick Xi laparoscopic cholecystectomy, multiport with FIREFLY 2. Acute hydrops cholecystitis due to gallstones with choledocholithiasis 3. Symptomatic gallstones 4. Morbid obesity due to excess calories, BMI 41.2 5. Choledocholithiasis 6. Hypertensive heart disease 7. Hyperlipidemia 8. Hypothyroidism 9. Chronic anticoagulation 10. Cardiac arrhythmia with atrial fibrillation 11. Gastroesophageal reflux disease 12. Osteoporosis PLAN: 1. Continue diet as tolerated 2. Continue abdominal binder 3. Incentive spirometer 4. Encourage ambulation 5. Continue simethicone drops 6. Continue with medical management per medical team 7. Patient is cleared by general surgery for discharge if otherwise medically stable The impression and plan of care has been dictated as directed. Dr. Mckeno I performed a history and examination of this patient, discussed the same with the dictator. I agree with the dictator's note ,documented as a scribe. Any additional findings or plans will be noted. Please see additional documentation, below. CHIEF COMPLAINT: Choledocholithiasis HISTORY OF PRESENT ILLNESS: The patient is a 70-year-old admitted with elevated liver enzymes including choledocholithiasis. She is status post MRCP including ERCP with removal of common bile duct stones. She is status post cholecystectomy. She denies any abdominal pain at this time. She is tolerating diet. Family is at bedside. ROS: No reports of nausea and vomiting. No fevers or chills. No new chest pain. No productive sputum PHYSICAL EXAM: VITAL SIGNS: Reviewed CONSTITUTIONAL: Well developed and in no acute distress. EYES: Conjuctivae without sclera icterus. Extraocular movements grossly intact. HEAD, EARS, NOSE, THROAT: Moist buccal mucosa. Head is atraumatic, normocephalic. Hears conversational speech. No nasal drainage. RESPIRATORY: Non-labored respirations and equal bilateral excursions. CARDIOVASCULAR: Palpable 2+ radial pulses. ABDOMEN: Incisions clean dry and intact. MUSCULOSKELETAL: No gross deformity of the lower extremities noted. No clubbing. No cyanosis. SKIN: Good skin turgor. Well perfused. NEUROLOGIC: Cranial nerves II through XII grossly intact. PSYCH: Appropriate affect. CLINICAL LABS: Reviewed. WBC improving from over 16,000 to over 12,000. ASSESSMENT: 1. Choledocholithiasis 2. Symptomatic cholelithiasis 3. Elevated LFTs 4. Status post cholecystectomy PLAN: 1. Stable for discharge from a surgical standpoint. 2. Outpatient follow-up including telehealth reviewed. 3. Diet as tolerated. Objective - Vital Signs Vital signs: Vital Signs Temp 98.6 F 07/26/21 07:09 Pulse 63 07/26/21 07:09 Resp 14 07/26/21 07:09 BP 161/79 07/26/21 07:09 Pulse Ox 95 07/26/21 07:09 Intake & Output 07/25/21 07/26/21 07/26/21 18:59 06:59 18:59 Intake Total 200 Output Total 1 Balance 199 Weight 108.862 kg Intake: Oral 200 Output: Stool 1 Other: Voiding Method Toilet Toilet Toilet # Voids 3 2 # Bowel Movements 0 - Labs CBC & Chem 7: 07/26/21 04:42 07/26/21 04:41 Assessment and Plan (1) Transaminitis Status: Acute Code(s): R74.01 - ELEVATION OF LEVELS OF LIVER TRANSAMINASE LEVELS SNOMED Code(s): 216636578 (2) Cholelithiasis Status: Acute Code(s): K80.20 - CALCULUS OF GALLBLADDER W/O CHOLECYSTITIS W/O OBSTRUCTION SNOMED Code(s): 334713276 (3) Hyperbilirubinemia Status: Acute Code(s): E80.6 - OTHER DISORDERS OF BILIRUBIN METABOLISM SNOMED Code(s): 54532713
[2021-07-26 10:24] LABS: HCT 38.4 % (37.2-46.3); HGB 12.2 g/dL (12.0-15.0); MCH 32.4 pg (27.0-32.0); MCV 102.1 fL (80.0-97.0); RBC 3.76 X 10*6/uL (4.10-5.20); WBC 12.95 X 10*3/uL (4.50-10.00)
[2021-07-26 10:25] LABS: Basophils # (A) 0.06 X 10*3/uL (0.00-0.10); Basophils % (A) 0.5 %; Eosinophils # (A) 0.22 X 10*3/uL (0.04-0.35); Eosinophils % (A) 1.7 %; Immature Grans, Automated 0.4 %; Lymphocytes # (A) 1.91 X 10*3/uL (0.90-5.00); Lymphocytes % (A) 14.7 %; MCHC 31.8 g/dL (32.0-37.0); Mean Platelet Volume 12.5 fL (9.5-12.2); Monocytes # (A) 1.07 X 10*3/uL (0.20-1.00); Monocytes % (A) 8.3 %; NRBC Per 100 WBC 0 /100 WBCS (0.0-0.0); Neutrophils # (A) 9.64 X 10*3/uL (1.80-7.70); Neutrophils % (A) 74.4 %; Platelet Count 241 X 10*3/uL (140-440); RDW 14.8 % (11.5-14.5)
--- NOTE | 2021-07-28 14:40 | P.DS ---
Providers Date of admission: 07/18/21 14:59 Attending physician: Tiffany Villa Consults: 07/18/21 14:57 Consult Physician Urgent Consulting Provider: Ilad Ro Consult Reason/Comments: Hyperbilirubinemia, transaminitis Do you want consulting provider notified?: Yes 07/18/21 14:58 Consult Physician Urgent Consulting Provider: Devora Mckeon Consult Reason/Comments: Cholelithiasis Do you want consulting provider notified?: Yes 07/23/21 10:27 Consult Physician Routine Consulting Provider: [facility] Consult Reason/Comments: [facility] Do you want consulting provider notified?: Yes Primary care physician: Amish J[facility] Hospital Course: Final Diagnosis Abdominal pain with transaminitis and elevated bilirubin level POD #2 laproscopic cholecystectomy secondary to cholelisthaisis Leukocytosis, reactive secondary to surgery Cholelithiasis/Choledolisthiasis - CBD within normal limit/Intraluminal tiny stones as per MRCP. s/p ERCP and biliary stent Paroxysmal atrial fibrillation with history of ablation. Currently on anticoagulation with Eliquis and flecainide Hyperlipidemia GERD Hypothyroidism History of radiation to thyroid Morbid obesity BMI 41.2 Currently everyday smoker; counseling received Discharge Disposition Patient cleared for discharge, will return home. Follow up with primary care, surgical services, GI services. Hospital Course This is a pleasant 70 year old female who presents to the with complaints of epigastric pain with an episode of vomiting on the day of admission with cold flashes. Also with some diarrhea, denies blood in the stool. Denies chest pain, shortness of breath, fever, or chills. Also denies dysuria, or hematuria. Chest xray was negative for acute cardiopulmonary disease. On admission WBC 17.8, sodium 135, Bili, AST/ALT/Alk phos elevted. Troponin and UA negative. Gallbladder U/S shows uncomplicated cholelisthaisis. Patient admitted with consults placed to GI and surgical services. Patient underwent MRCP and ERCP on 07/20/2021. MRCP showed possibility of 2 small stones in the distal common bile duct which patient then underwent ERCP with biliary stent and balloon sweep. Patient continued on clear liquid diet and then underwent laproscopic cholecystecomy on 07/23/2021. Patient also underwent cardiology evaluation preoperatively for clearance which she was cleared for surgery. Echocardiogram performed showed an EF of 50-55% which was considered low normal. Eliquis was held for surgery and resumed postoperatively. Patient did develop wheezing postop and was started on albuterol nebulized and doing well with IS. Wheezing did improve, patient was discharged with an inhaler and plans to quit smoking as she has gone 7 days now without smoking while inpatient. Patient also received IV fluids and IV zosyn while inpatient. 07/26/2021 Patient evaluated today 2 days postoperative lap cong as well as post op biliary stent. After surgery WBC jumped from 16.38 up from 7 on the day of surgery. Patient was monitored overnight for response to albuterol for wheezing, which improved and WBC is beginning to trend down is now 12. Hgb has remained stable at 12. Sodium 138, potassium 3.5, liver enzymes have all began to trend down. Patient is afebrile, heart rate 63, blood pressure 132/78, 95% on room air. Denies chest pain, chest pressure, palpitaions, cough or shortness of breath. Tolerating diet well. Is passing gas, abdominal pain rates a 3/10 today and states this is the best shes felt. No BM yet. No nausea or vomiting. She has positive bowel sounds in all regions. Cleared by surgery and GI for discharge. Lungs are clear, getting up to 1500 on IS consistently. Educated on importance of smoking cessation. No need for antibiotics on discharge. Given scripts for follow up labs. Please see medication reconciliation for a list of current medication. Thank you for allowing us to participate in the care of this patient. The impression and plan of care has been dictated by Nyla Plascencia, Nurse Practitioner as directed. Dr. Angelique MD I have performed a history and physical examination and medical decision making of this patient, discussed the same with the dictator, and agree with the dictators assessment and plan as written, documented as a scribe. Based on total visit time, I have performed more than 50% of this visit. Patient Condition at Discharge: Fair Plan - Discharge Summary New Discharge Prescriptions: New Docusate [Colace] 100 mg PO BID #60 cap Albuterol Inhaler [Ventolin Hfa Inhaler] 2 puff INHALATION RT-QID PRN #1 each PRN Reason: Shortness Of Breath Or Wheezing Continue Apixaban [Eliquis] 5 mg PO BID Omeprazole 20 mg PO DAILY Metoprolol Tartrate 25 mg PO BID Flecainide Acetate 50 mg PO BID Ferrous Sulfate [Iron] 325 mg PO HS lisinopriL [Zestril] 5 mg PO HS Levothyroxine Sodium [Levoxyl] 100 mcg PO COLLINS Cholecalciferol [Vitamin D3 (25 Mcg = 1000 Iu)] 50 mcg PO DAILY Levothyroxine Sodium [Synthroid] 125 mcg PO MOTUWETHFRSA Denosumab [Prolia] 60 mg SQ Q180D Atorvastatin [Lipitor] 20 mg PO HS Discharge Medication List Apixaban [Eliquis] 5 mg PO BID 10/24/16 [History] Flecainide Acetate 50 mg PO BID 10/24/16 [History] Metoprolol Tartrate 25 mg PO BID 10/24/16 [History] Omeprazole 20 mg PO DAILY 10/24/16 [History] Ferrous Sulfate [Iron] 325 mg PO HS 10/02/17 [History] Atorvastatin [Lipitor] 20 mg PO HS 07/18/21 [History] Cholecalciferol [Vitamin D3 (25 Mcg = 1000 Iu)] 50 mcg PO DAILY 07/18/21 [History] Denosumab [Prolia] 60 mg SQ Q180D 07/18/21 [History] Levothyroxine Sodium [Levoxyl] 100 mcg PO COLLINS 07/18/21 [History] Levothyroxine Sodium [Synthroid] 125 mcg PO MOTUWETHFRSA 07/18/21 [History] lisinopriL [Zestril] 5 mg PO HS 07/18/21 [History] Albuterol Inhaler [Ventolin Hfa Inhaler] 2 puff INHALATION RT-QID PRN #1 each 07/26/21 [Rx] Docusate [Colace] 100 mg PO BID #60 cap 07/26/21 [Rx] Follow up Appointment(s)/Referral(s): Amish Jc MD [Primary Care Provider] - 07/30/21 11:20 am Devora Mckeon MD [STAFF PHYSICIAN] - 07/31/21 2:45 pm Ilda Ro MD [STAFF PHYSICIAN] - 2 Weeks (office not answering Please call to schedule appointment ) Ambulatory/Diagnostic Orders: Complete Blood Count w/diff [LAB.AMB] Time Frame: 2 Days, Location: None Selected Patient Instructions/Handouts: *Surgery [facility] - Laparoscopic Cholecystectomy Discharge Instructions, Laparoscopic Cholecystectomy (DC) Activity/Diet/Wound Care/Special Instructions: Use Inhaler as needed up to 4 times a day for shortness of breath or wheezing Use incentive spirometer 10 times an hour Increase activity as tolerated Discharge Disposition: HOME WITH HOME HEALTH SERVICES
== END 2021-07-26 13:25 | disposition home health service (06) | DRG 418 ==
LOC: EC 11:39 → 1SOBS 14:59 → 4SSUR 15:31
PROVIDERS: ADMIT Hospitalist; ATTEND Hospitalist
PROC: 0F798ZZ Dilation of Common Bile Duct, Via Natural or Artificial Opening Endoscopic (ICD-10-PCS; 2021-07-20)
PROC: 8E0W4CZ Robotic Assisted Procedure of Trunk Region, Percutaneous Endoscopic Approach (ICD-10-PCS; 2021-07-23)
PROC: 0FT44ZZ Resection of Gallbladder, Percutaneous Endoscopic Approach (ICD-10-PCS; principal; 2021-07-23 07:30)
DX: K80.67 Calculus of gallbladder and bile duct with acute and chronic cholecystitis with obstruction (principal); Z68.41 Body mass index [BMI] 40.0-44.9, adult; K82.1 Hydrops of gallbladder; E66.01 Morbid (severe) obesity due to excess calories; E78.5 Hyperlipidemia, unspecified; I11.9 Hypertensive heart disease without heart failure; I48.0 Paroxysmal atrial fibrillation; K21.9 Gastro-esophageal reflux disease without esophagitis; M19.90 Unspecified osteoarthritis, unspecified site; E03.9 Hypothyroidism, unspecified; F17.210 Nicotine dependence, cigarettes, uncomplicated; I45.10 Unspecified right bundle-branch block; M81.0 Age-related osteoporosis without current pathological fracture; Z96.652 Presence of left artificial knee joint; Z79.01 Long term (current) use of anticoagulants; Z79.890 Hormone replacement therapy; Z79.899 Other long term (current) drug therapy; Z92.3 Personal history of irradiation; Z98.890 Other specified postprocedural states; Z71.6 Tobacco abuse counseling; Z82.49 Family history of ischemic heart disease and other diseases of the circulatory system
CPT/HCPCS: 36415; 43262; 71046; 74181; 74330; 76705; 80048; 80053; 81001; 82150; 83605; 83690; 83735; 84484; 85025; 87040; 88304; 93005; 93306; 94640; 96361; 96365; 99285

== ENCOUNTER 2023-10-06 14:49 | Day surgery (SDC) | payer MEDICARE ==
[~2023-10-06 14:49] MED LIST changes: -LACTATED RINGERS 1,000 ML IV SCH; -LIDOCAINE 1% 20 ML VIAL (10MG/ML) FOR IV START INTRADERMA PRN; -MIDAZOLAM 2 MG/2 ML VIAL IV PRN
[2023-10-06] MEDS: SODIUM CHLORIDE 0.9% 500 ML 500 ML IV ONE (15:25)
[2023-10-06 15:37] VITALS: BP 174/76; PULSE 80; RESP 16; TEMP 98.6
[2023-10-06] MEDS ORDERED: LIDOCAINE 1% INJ 10MG/ML (20 ML MDV) ONE (16:26)
--- NOTE | 2023-10-06 17:20 | P.EPPROC ---
- EP Procedure Note Electrophysiology Procedure Note: Loop monitor implant Primary physicians: [employer] Manager: Dr. Arevalo Indication: Paroxysmal atrial fibrillation, sick sinus syndrome, on flecainide Patient was brought to the EP lab in a fasting state. Written informed consent was obtained prior to the procedure. The left pectoral area was prepped and draped per protocol. Intravenous antibiotic was administered preoperatively. A subcutaneous Loop monitor was implanted successfully and the wound was closed per protocol. The device was programmed to detect significant pedro- arrhythmic and tachy-arrhythmic events, per protocol. Device and programming details: Bradycardia and A-fib protocol to text
== END 2023-10-06 17:58 | disposition home or self-care (01) ==
LOC: CATHEP 14:49
PROVIDERS: ATTEND Internal Medicine Clinical Cardiac Electrophysiology
DX: I48.0 Paroxysmal atrial fibrillation (principal); I49.5 Sick sinus syndrome; E78.5 Hyperlipidemia, unspecified; I10 Essential (primary) hypertension; Z79.01 Long term (current) use of anticoagulants; Z79.899 Other long term (current) drug therapy
CPT/HCPCS: 33285; C1764; J0690

== ENCOUNTER → 2024-08-23 | Outpatient (CLI) | payer MEDICARE ==
--- NOTE | 2024-08-23 09:35 | MM ---
Reason for Exam: Screening (asymptomatic). Last mammogram was performed 1 year(s) and 1 month(s) ago. Patient History: Menarche at age 13. Patient has no children. Postmenopausal. Risk Values: Margarita 5 year model risk: 2.0%. NCI Lifetime model risk: 4.8%. Prior Study Comparison: 03/22/2019 Bilateral Screening Mammogram, [facility]. 04/26/2020 Bilateral Screening Mammogram, [facility]. 05/03/2020 Left Diagnostic Mammogram, [facility]. 10/31/2020 Left Diagnostic Mammogram, [facility]. 05/16/2021 Bilateral Diagnostic Mammogram, [facility]. 06/07/2022 Bilateral MG screening mammo w CAD, [facility]. 07/07/2023 Bilateral MG 3D screening mammo w/cad, [facility]. Tissue Density: There are scattered areas of fibroglandular density. Findings: Analyzed By CAD. There is no suspicious group of microcalcifications or new suspicious mass in either breast. Overall Assessment: Negative, BI-RAD 1 Management: Screening Mammogram of both breasts in 1 year. . Patient should continue monthly self-breast exams. A clinical breast exam by your physician is recommended on an annual basis. This exam should not preclude additional follow-up of suspicious palpable abnormalities. Note on Margarita scores and lifetime risk: 1. A Margarita score greater than 3% is considered moderate risk. If this is the case, consider specialist referral to assess eligibility for a risk reducing agent. 2. If overall lifetime risk for the development of breast cancer is 20% or higher, the patient may qualify for future screening with alternating mammogram and breast MRI. [facility], , 08/23/2024 9:32 AM. Electronically signed and approved by: Morgan Burton M.D. Radiologis
== END | disposition home or self-care (01) ==
LOC: RADMAMWWP 08:55
PROVIDERS: ATTEND Family Medicine
DX: Z12.31 Encounter for screening mammogram for malignant neoplasm of breast (principal); R92.323 Mammographic fibroglandular density, bilateral breasts; Z78.0 Asymptomatic menopausal state
CPT/HCPCS: 77063; 77067